=== PATIENT | female | born 1930 | race American Indian/Alaskan Native ===

== ENCOUNTER 2020-05-27 17:07 | Inpatient (IN) ==
[2020-05-27] MEDS ORDERED: IOPAMIDOL 100 ML BOTTLE IV ONE (17:08)
[2020-05-27] MEDS ORDERED: ONDANSETRON 4 MG/2 ML VIAL IV ONE (17:28)
--- NOTE | 2020-05-27 17:33 | Emergency Department Note ---
Nausea/Vomiting/Diarrhea HPI General Chief complaint: Nausea/Vomiting/Diarrhea Stated complaint: nausea, vomiting, diarrhea, weakness Time Seen by Provider: 05/27/20 17:21 Source: EMS Mode of arrival: EMS Limitations: no limitations and other (Patient seems hard of hearing and perhaps slow to respond to questions and does not respond completely.) History of Present Illness HPI Narrative: Narrative: This patient has developed nausea vomiting and diarrhea today. She is not a very good historian. She comes from a facility that has positive COVID cases. She denies cough or shortness of breath and denies any bleeding today. Apparently she is having watery diarrhea and nausea and vomiting. She denies abdominal pain. MD complaint: nausea, vomiting and diarrhea Onset (ago): hour(s) Description of Vomiting: watery Description of Diarrhea: water Associated Abdominal Pain: No Severity: moderate Improves with: none Worsens with: none Associated symptoms: Reports weakness; Denies myalgias, chest pain, cough, fever/chills, headaches and shortness of breath Related Data Home Medications Medication Instructions Recorded Confirmed gabapentin 100 mg PO HS 08/04/16 05/27/20 cyanocobalamin (vitamin B-12) 1,000 mcg PO QDAY 03/15/19 05/27/20 1,000 mcg tablet losartan 100 mg tablet 100 mg PO QDAY 03/15/19 05/27/20 metoprolol succinate 25 mg 25 mg PO QDAY 03/15/19 05/27/20 tablet,extended release 24 hr paroxetine HCl 10 mg PO DAILY 05/27/20 05/27/20 Previous Rx's Medication Instructions Recorded chlorthalidone 25 mg tablet 25 mg PO QDAY #60 tab 07/21/19 Allergies Allergy/AdvReac Type Severity Reaction Status Date / Time aspirin [From Bufferin] AdvReac Mild Gastrointestinal Verified 05/27/20 17:11 Upset [id number] [From Bufferin] AdvReac Mild Gastrointestinal Verified 05/27/20 17:11 Upset magnesium [From Bufferin] AdvReac Mild Gastrointestinal Verified 05/27/20 17:11 Upset Review of Systems ROS ROS Narrative: Narrative: All systems ED: reviewed and negative except as stated. [facility] Narrative Patient History Narrative: Narrative: Medical/Surgical/Family History All Active Problems Gastroenteritis (Acute) Hypertensive nephrosclerosis (Chronic) CKD stage G3a/A2, GFR 45-59 and albumin creatinine ratio 30-299 mg/g (Chronic) Encounter for removal of sutures (Chronic) Strain of tendon (Chronic) Diverticulitis (Chronic) Diverticular disease (Chronic) Acute urinary tract infection (Chronic) Supraventricular tachycardia (Chronic) Blood pressure alteration (Chronic) Heart murmur (Chronic) Chest pain (Chronic) Tenderness (Chronic) After cataract not obscuring vision (Chronic) Glaucoma suspect of both eyes (Chronic) Viral upper respiratory tract infection (Chronic) Bacteremia (Chronic) Presbyopia (Chronic) Left arm numbness (Chronic) Edema (Chronic) 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) Regular astigmatism of both eyes (Chronic) Hypermetropia, bilateral (Chronic) Knee pain, right (Chronic) Retinal scar of left eye (Chronic) Calf pain (Chronic) Acute bronchitis (Chronic) Vitamin B 12 deficiency (Chronic) Chronic back pain (Chronic) Generalized osteoarthritis of hand (Chronic) Osteoporosis (Chronic) Callus (Chronic) Osteopenia (Chronic) Muscle cramps (Chronic) Vitamin D deficiency (Chronic) Malignant neoplasm of female breast (Chronic) Bilateral hearing loss (Chronic) Chronic GERD (Chronic) RAD (reactive airway disease) (Chronic) Cervical spinal stenosis (Chronic) Cervical spinal stenosis (Chronic) Hyperlipidemia (Chronic) Hypertension (Chronic) Positive PPD (Chronic) Laneview's disease (Chronic) Left groin pain (Chronic) Swollen ankles (Acute) Hematuria (Chronic) History of partial knee replacement (Acute) Medical History (Updated 05/27/20 @ 23:36 by Bob Larson MD) Acute bronchitis (Chronic) Acute urinary tract infection (Chronic) Laneview's disease (Chronic) After cataract not obscuring vision (Chronic) Anemia (Chronic) Bacteremia (Chronic) Bilateral hearing loss (Chronic) 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) Blood pressure alteration (Chronic) Calf pain (Chronic) Callus (Chronic) Cervical spinal stenosis (Chronic) bilateral C5-6 Cervical spinal stenosis (Chronic) Left C4-5 Chest pain (Chronic) Chronic back pain (Chronic) Chronic GERD (Chronic) CKD stage G3a/A2, GFR 45-59 and albumin creatinine ratio 30-299 mg/g (Chronic) Probably hypertensive nephrosclerosis On full dose losartan therapy Diverticular disease (Chronic) Diverticulitis (Chronic) Edema (Chronic) Encounter for removal of sutures (Chronic) Generalized osteoarthritis of hand (Chronic) Glaucoma suspect of both eyes (Chronic) Heart murmur (Chronic) Hematuria (Chronic) Hyperlipidemia (Chronic) Hypermetropia, bilateral (Chronic) Hypertension (Chronic) Requiring 3-4 drugs for control Hypertensive nephrosclerosis (Chronic) Low-grade proteinuria is present on maximal dose ARB therapy Persistent edema Blood pressure goal is 130/80 in has yet to be achieved Knee pain, right (Chronic) Left arm numbness (Chronic) Left groin pain (Chronic) Malignant neoplasm of female breast (Chronic) Microalbuminuria (Suspected) This patient has had trace dipstick positive albuminuria which in the absence of diabetes of long duration is not much of a concern. 3 separate urine checks have failed to result in any readings of elevated protein losses i.e. random urine protein to creatinine ratio of greater than 0.2 Muscle cramps (Chronic) Osteopenia (Chronic) Osteoporosis (Chronic) Positive PPD (Chronic) Presbyopia (Chronic) RAD (reactive airway disease) (Chronic) Secondary to GERD Regular astigmatism of both eyes (Chronic) Retinal scar of left eye (Chronic) Strain of tendon (Chronic) Left medial thigh muscle Supraventricular tachycardia (Chronic) Swollen ankles (Acute) Suspect this is the result of amlodipine a well-known side effect Tenderness (Chronic) Viral upper respiratory tract infection (Chronic) Vitamin B 12 deficiency (Chronic) Vitamin D deficiency (Chronic) Surgical History H/O cataract removal with insertion of prosthetic lens (Chronic 01/20/99) H/O cataract removal with insertion of prosthetic lens (Chronic 01/06/99) H/O cataract removal with insertion of prosthetic lens (Chronic 01/15/99) H/O eye surgery (Chronic 01/06/99) Removal of lens material H/O eye surgery (Chronic 02/10/00) Removal of inner eye fluid H/O knee surgery (Chronic 08/07/16) Revision of knee joint H/O: hysterectomy (Chronic) due to fibroids History of cholecystectomy (Chronic) History of excision of lesion (Chronic) Pigmented lesion axilla x7 History of excision of lesion (Chronic) Skin tag History of partial knee replacement (Acute) Hx of tonsillectomy (Chronic) Family History Other No pertinent family history Social History Smoking Status: Former smoker Exam Narrative Narrative: Narrative: General Limitations: no limitations and other (Patient seems hard of hearing and perhaps slow to respond to questions and does not respond completely.) Head Head: atraumatic, normocephalic and normal inspection Eye Eye: Present normal appearance, PERRL and EOMI; Absent scleral icterus and conjunctival injection ENT ENT: Present normal exam, normal oropharynx and mucous membranes dry Neck Neck: Present normal inspection and full ROM Chest Chest: Present normal inspection and symmetric chest wall rise Respiratory Respiratory: Present normal lung sounds bilaterally; Absent respiratory distress, rales/crackles and wheezes Cardiovascular Cardiovascular: Present regular rate, normal rhythm and normal heart sounds Adbominal Abdominal: Present soft; Absent distention and tenderness Extremities Extremities: Absent pedal edema and pretibial edema Neurological Neurological: Present alert Psychiatric Psychiatric: Present normal affect Skin Skin: Present warm and dry; Absent diaphoresis Course Vital Signs Vital signs: Vital Signs Temperature 99.9 F H 05/27/20 17:08 Pulse Rate 60 05/27/20 17:08 Respiratory Rate 18 05/27/20 17:08 Blood Pressure 131/56 05/27/20 17:08 Pulse Oximetry (%) 98 05/27/20 17:08 Temperature 99.9 F H 05/27/20 17:08 Pulse Rate 60 05/27/20 17:08 Respiratory Rate 16 05/27/20 18:16 Blood Pressure 131/56 05/27/20 17:08 Pulse Oximetry (%) 98 05/27/20 17:[address] [facility] MDM Narrative Medical decision making narrative: Narrative: This patient was hydrated and felt much better. I think she probably was dehydrated with a T CO2 of 16 but she had a normal lactic acid. She had no diarrhea while here in the emergency room and had no nausea at discharge. She felt improved and felt that she could go home. Lab Data Lab results reviewed: Yes I reviewed the patient's lab results. Result diagrams: 05/27/20 18:22 05/27/20 18:21 Labs: Lab Results 05/27/20 05/27/20 05/27/20 Range/Units 18:21 18:22 18:22 WBC 5.6 (4.50-11.00) K/mcL RBC 3.67 (3.59-5.38) M/mcL Hgb 10.6 L (11.2-15.7) g/dL Hct 32.3 L (34.1-44.9) % MCV 88.0 (80.0-100.0) fL MCH 28.9 (26.0-34.0) pg MCHC 32.8 (31.0-36.0) g/dL RDW 12.5 (11.5-14.5) % Plt Count 106 L (140-440) K/mcL MPV 10.6 H (7.4-10.4) fL Gran % 50.7 (38.0-78.0) % Lymph % (Auto) 33.9 (15.5-49.0) % [place] % (Auto) 15.2 H (1.0-12.0) % Eos % (Auto) 0.2 (0.0-7.0) % Baso % (Auto) 0 (0.0-2.0) % Gran # 2.86 (1.80-8.00) K/mcL Lymph # (Auto) 1.91 (1.50-4.80) K/mcL [place] # (Auto) 0.86 (0.10-0.90) K/mcL Eos # (Auto) 0.01 (0.00-0.70) K/mcL Baso # (Auto) 0 (0.00-0.30) K/mcL VBG Lactic Acid 1.0 (0.5-2.0) mmol/L Sodium 137 (133-145) mmol/L Potassium 4.5 (3.3-5.1) mmol/L Chloride 109 H (96-108) mmol/L Carbon Dioxide 16 L (22-30) mmol/L Anion Gap 12.0 (8-16) BUN 41 H (8-23) mg/dl Creatinine 1.5 H (0.6-1.1) mg/dl GFR Calculation 31 Glucose 93 (70-105) mg/dL Calcium 8.0 L (8.6-10.4) mg/dl Total Bilirubin 0.6 (0.0-1.0) mg/dL AST 29 (0-37) U/l ALT 12 (0-40) U/l Alkaline Phosphatase 51 (39-117) U/L Total Protein 5.9 (5.9-8.4) gm/dL Albumin 3.0 L (3.2-5.2) gm/dL Globulin 2.9 (2.2-3.7) gm/dL Albumin/Globulin Ratio 1.0 (1.0-2.3) Radiology Data Radiology results reviewed: Yes I reviewed the patient's radiology results. Discharge Plan Patient/Caregiver Discharge Instructions Pt seen by [facility]/PA only: No Clinical Impression: Gastroenteritis Instructions: Gastroenteritis (ED) Activity Restrictions/Additional Instructions: Try to keep well-hydrated at home and use Imodium as needed for diarrhea Patient Disposition: Home, Self-Care Follow up with: Telma Smith ARNP [Primary Care Provider] - Prescriptions: No Action chlorthalidone 25 mg tablet 25 mg PO QDAY Qty: 60 RF: 2 losartan 100 mg tablet 100 mg PO QDAY RF: 0 metoprolol succinate 25 mg tablet extended release 24 hr 25 mg PO QDAY RF: 0 cyanocobalamin (vit B-12) 1,000 mcg tablet 1,000 mcg tablet 1,000 mcg PO QDAY RF: 0 gabapentin 100 MG capsule 100 mg PO HS RF: 0 paroxetine HCl 10 mg tablet 10 mg PO DAILY RF: 0
[2020-05-27 19:13] LABS: Basophils # (Auto) 0 K/mcL (0.00-0.30); Basophils % (Auto) 0 % (0.0-2.0); Eosinophils # (Auto) 0.01 K/mcL (0.00-0.70); Eosinophils % (Auto) 0.2 % (0.0-7.0); Granulocytes % (Auto) 50.7 % (38.0-78.0); Hematocrit 32.3 % (34.1-44.9); Hemoglobin 10.6 g/dL (11.2-15.7); Lymphocytes # (Auto) 1.91 K/mcL (1.50-4.80); Lymphocytes % (Auto) 33.9 % (15.5-49.0); Mean Corpuscular HGB Conc 32.8 g/dL (31.0-36.0); Mean Platelet Volume 10.6 fL (7.4-10.4); Monocytes # (Auto) 0.86 K/mcL (0.10-0.90); Monocytes % (Auto) 15.2 % (1.0-12.0); Platelet Count 106 K/mcL (140-440); RBC 3.67 M/mcL (3.59-5.38); Red Cell Distribution Width 12.5 % (11.5-14.5); WBC 5.6 K/mcL (4.50-11.00)
[2020-05-27 19:32] LABS: ALT/SGPT 12 U/l (0-40); AST/SGOT 29 U/l (0-37); Alkaline Phosphatase 51 U/L (39-117); Bilirubin,Total 0.6 mg/dL (0.0-1.0); Blood Urea Nitrogen 41 mg/dl (8-23); Carbon Dioxide 16 mmol/L (22-30); Chloride 109 mmol/L (96-108); Globulin 2.9 gm/dL (2.2-3.7); Glomerular Filtration Rate 31; Glucose 93 mg/dL (70-105)
--- NOTE | 2020-05-27 20:27 | XRay Report ---
INDICATION: cough TECHNIQUE: AP portable upright chest x-ray COMPARISON: None FINDINGS: Lungs:Lungs are negative. No focal pulmonary parenchymal infiltrate or mass Heart, vascular:No significant cardiomegaly. Pulmonary vascularity is normal. No pulmonary edema or pulmonary congestion Mediastinum, diane:No mediastinal widening. No hilar mass Pleura:No pleural fluid. No pleural-based mass or calcification Skeletal, soft tissues:Surgical clips in the right axilla IMPRESSION: Negative AP chest x-ray Interpreted and Authenticated by: Akin Merino 05/27/20
[2020-05-27 21:12] LABS: Appearance,Urine CLEAR; Bacteria,Urine 0 /hpf (0); Bilirubin,Urine NEG (NEG); Color,Urine YELLOW; Culture Indicated,Urine NO; Glucose,Urine (UA) NEGATIVE (NEG); Ketones,Urine 5/TR mg/dL (NEG); Leukocyte Esterase,Urine NEG /uL (NEG); Mucus,Urine FEW /hpf (0); Nitrate,Urine NEG (NEG); Protein,Urine 30 mg/dL (NEG); Specific Gravity,Urine 1.014 (1.000-1.035); Urine Blood NEG mg/dL (<0.03); Urine Hyaline Cast 4 /lpf (0-2); Urine RBC 2 /hpf (0-1); Urine Squamous Epithelial Cell 1 /hpf (0-4); Urine WBC 1 /hpf (0-4); Urobilinogen,Urine NEG (NEG)
[2020-05-27] MEDS ORDERED: ONDANSETRON (PP) 4 MG TABLET SL ONE (23:36)
[2020-05-28] MEDS ORDERED: ACETAMINOPHEN 325 MG TABLET PO ONE (06:02)
[2020-05-28 09:34] LABS: ALT/SGPT 13 U/l (0-40); AST/SGOT 34 U/l (0-37); Alkaline Phosphatase 54 U/L (39-117); Bilirubin,Total 0.7 mg/dL (0.0-1.0); Blood Urea Nitrogen 33 mg/dl (8-23); Calcium 8.1 mg/dl (8.6-10.4); Carbon Dioxide 15 mmol/L (22-30); Chloride 107 mmol/L (96-108); Glomerular Filtration Rate 31; Glucose 85 mg/dL (70-105)
[2020-05-28 10:15] LABS: Basophils # (Auto) 0.01 K/mcL (0.00-0.30); Basophils % (Auto) 0.2 % (0.0-2.0); Eosinophils # (Auto) 0.01 K/mcL (0.00-0.70); Eosinophils % (Auto) 0.2 % (0.0-7.0); Granulocytes % (Auto) 66.4 % (38.0-78.0); Hematocrit 35.4 % (34.1-44.9); Hemoglobin 11.6 g/dL (11.2-15.7); Lymphocytes # (Auto) 1.45 K/mcL (1.50-4.80); Lymphocytes % (Auto) 22.1 % (15.5-49.0); Mean Cell Volume 87.6 fL (80.0-100.0); Mean Corpuscular HGB Conc 32.8 g/dL (31.0-36.0); Mean Platelet Volume 10.7 fL (7.4-10.4); Monocytes # (Auto) 0.73 K/mcL (0.10-0.90); Monocytes % (Auto) 11.1 % (1.0-12.0); Platelet Count 144 K/mcL (140-440); RBC 4.04 M/mcL (3.59-5.38); Red Cell Distribution Width 12.4 % (11.5-14.5); WBC 6.6 K/mcL (4.50-11.00)
[2020-05-28] MEDS ORDERED: 0.9 % SODIUM CHLORIDE 1,000 ML IV ONE ×2 (10:43→14:16)
--- NOTE | 2020-05-28 10:55 | Cat Scan Report ---
INDICATION: obtundation, weakness COMPARISON: None. TECHNIQUE: Axial noncontrast-enhanced images through the brain. Sagittally and coronally reformatted images. FINDINGS: Cerebral hemispheres:Negative. No intra-axial abnormality. No intra-axial hematoma. No localized mass effect. Brain volume is within normal limits. No hydrocephalus. There is mild white matter abnormality in a periventricular distribution. Appearance is consistent with small vessel ischemic change in this 89-year-old patient Brainstem and cerebellum:No intra-axial abnormality Extra-axial:No acute hemorrhage. No subdural or epidural hematoma. No subarachnoid hemorrhage. Basilar cisterns are normal Calvarial:No calvarial fracture. No lytic lesion Temporal bones are negative. No destructive lesions Soft tissue, orbits, sinuses:Findings consistent with chronic fracture of the right lamina papyracea and medial orbital wall. There is inflammatory disease with mucosal thickening in the ethmoid sinuses and frontal sinuses bilaterally. Maxillary sinuses are not imaged IMPRESSION: 1. No acute intracranial abnormality 2. Chronic deformity of the medial right orbital wall consistent with old medial blowout fracture. Inflammatory disease of the ethmoid and frontal sinuses The exam was performed using radiation dose optimization techniques including, but not limited to, automated exposure control, adjustment of the mA and/or kV according to patient size and use of iterative reconstruction technique. Interpreted and Authenticated by: Akin Merino 05/28/20
--- NOTE | 2020-05-28 12:03 | Emergency Department Note ---
HPI General Chief complaint: Nausea/Vomiting/Diarrhea Stated complaint: nausea, vomiting, diarrhea, weakness Time Seen by Provider: 05/27/20 17:21 Source: EMS Mode of arrival: EMS Limitations: no limitations and other (Patient seems hard of hearing and perhaps slow to respond to questions and does not respond completely.) History of Present Illness HPI Narrative: Narrative: See dictated history and physical by Dr. lowe. Patient's baseline is uncertain. She seems to be somewhat lethargic, obtunded. Reportedly could not return to her usual environment/home because this emergency room department did not have contact information for family or residents last evening. She slept well during the night reportedly and then had some additional labs drawn to recheck this morning. Was brought in yesterday because of weakness, nausea and vomiting, diarrhea, incontinence. Reportedly is coming from a [facility] facility. Staff nor myself know what this patient's baseline is. She seems to be still somewhat weak. She may be more hard of hearing. Related Data Home Medications Medication Instructions Recorded Confirmed gabapentin 100 mg PO HS 08/04/16 05/27/20 cyanocobalamin (vitamin B-12) 1,000 mcg PO QDAY 03/15/19 05/27/20 1,000 mcg tablet losartan 100 mg tablet 100 mg PO QDAY 03/15/19 05/27/20 metoprolol succinate 25 mg 25 mg PO QDAY 03/15/19 05/27/20 tablet,extended release 24 hr paroxetine HCl 10 mg PO DAILY 05/27/20 05/27/20 Previous Rx's Medication Instructions Recorded chlorthalidone 25 mg tablet 25 mg PO QDAY #60 tab 07/21/19 Allergies Allergy/AdvReac Type Severity Reaction Status Date / Time aspirin [From Bufferin] AdvReac Mild Gastrointestinal Verified 05/27/20 17:11 Upset [id number] [From Bufferin] AdvReac Mild Gastrointestinal Verified 05/27/20 17:11 Upset magnesium [From Bufferin] AdvReac Mild Gastrointestinal Verified 05/27/20 17:11 Upset Review of Systems ROS ROS Narrative: Narrative: PFSH Narrative Patient History Narrative: Narrative: Medical/Surgical/Family History All Active Problems Pneumonia (Acute) Acute renal failure (ARF) (Acute) Acute dehydration (Acute) Change in mental status (Acute) Hypertensive nephrosclerosis (Chronic) CKD stage G3a/A2, GFR 45-59 and albumin creatinine ratio 30-299 mg/g (Chronic) Encounter for removal of sutures (Chronic) Strain of tendon (Chronic) Diverticulitis (Chronic) Diverticular disease (Chronic) Acute urinary tract infection (Chronic) Supraventricular tachycardia (Chronic) Blood pressure alteration (Chronic) Heart murmur (Chronic) Chest pain (Chronic) Tenderness (Chronic) After cataract not obscuring vision (Chronic) Glaucoma suspect of both eyes (Chronic) Viral upper respiratory tract infection (Chronic) Bacteremia (Chronic) Presbyopia (Chronic) Left arm numbness (Chronic) Edema (Chronic) 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) Regular astigmatism of both eyes (Chronic) Hypermetropia, bilateral (Chronic) Knee pain, right (Chronic) Retinal scar of left eye (Chronic) Calf pain (Chronic) Acute bronchitis (Chronic) Vitamin B 12 deficiency (Chronic) Chronic back pain (Chronic) Generalized osteoarthritis of hand (Chronic) Osteoporosis (Chronic) Callus (Chronic) Osteopenia (Chronic) Muscle cramps (Chronic) Vitamin D deficiency (Chronic) Malignant neoplasm of female breast (Chronic) Bilateral hearing loss (Chronic) Chronic GERD (Chronic) RAD (reactive airway disease) (Chronic) Cervical spinal stenosis (Chronic) Cervical spinal stenosis (Chronic) Hyperlipidemia (Chronic) Hypertension (Chronic) Positive PPD (Chronic) Wheeler's disease (Chronic) Left groin pain (Chronic) Swollen ankles (Acute) Hematuria (Chronic) History of partial knee replacement (Acute) Medical History (Updated 05/28/20 @ 18:26 by Antoni Mensah DO) Acute bronchitis (Chronic) Acute urinary tract infection (Chronic) Frandy's disease (Chronic) After cataract not obscuring vision (Chronic) Anemia (Chronic) Bacteremia (Chronic) Bilateral hearing loss (Chronic) 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) Blood pressure alteration (Chronic) Calf pain (Chronic) Callus (Chronic) Cervical spinal stenosis (Chronic) bilateral C5-6 Cervical spinal stenosis (Chronic) Left C4-5 Chest pain (Chronic) Chronic back pain (Chronic) Chronic GERD (Chronic) CKD stage G3a/A2, GFR 45-59 and albumin creatinine ratio 30-299 mg/g (Chronic) Probably hypertensive nephrosclerosis On full dose losartan therapy Diverticular disease (Chronic) Diverticulitis (Chronic) Edema (Chronic) Encounter for removal of sutures (Chronic) Generalized osteoarthritis of hand (Chronic) Glaucoma suspect of both eyes (Chronic) Heart murmur (Chronic) Hematuria (Chronic) Hyperlipidemia (Chronic) Hypermetropia, bilateral (Chronic) Hypertension (Chronic) Requiring 3-4 drugs for control Hypertensive nephrosclerosis (Chronic) Low-grade proteinuria is present on maximal dose ARB therapy Persistent edema Blood pressure goal is 130/80 in has yet to be achieved Knee pain, right (Chronic) Left arm numbness (Chronic) Left groin pain (Chronic) Malignant neoplasm of female breast (Chronic) Microalbuminuria (Suspected) This patient has had trace dipstick positive albuminuria which in the absence of diabetes of long duration is not much of a concern. 3 separate urine checks have failed to result in any readings of elevated protein losses i.e. random urine protein to creatinine ratio of greater than 0.2 Muscle cramps (Chronic) Osteopenia (Chronic) Osteoporosis (Chronic) Positive PPD (Chronic) Presbyopia (Chronic) RAD (reactive airway disease) (Chronic) Secondary to GERD Regular astigmatism of both eyes (Chronic) Retinal scar of left eye (Chronic) Strain of tendon (Chronic) Left medial thigh muscle Supraventricular tachycardia (Chronic) Swollen ankles (Acute) Suspect this is the result of amlodipine a well-known side effect Tenderness (Chronic) Viral upper respiratory tract infection (Chronic) Vitamin B 12 deficiency (Chronic) Vitamin D deficiency (Chronic) Surgical History H/O cataract removal with insertion of prosthetic lens (Chronic 01/20/99) H/O cataract removal with insertion of prosthetic lens (Chronic 01/06/99) H/O cataract removal with insertion of prosthetic lens (Chronic 01/15/99) H/O eye surgery (Chronic 01/06/99) Removal of lens material H/O eye surgery (Chronic 02/10/00) Removal of inner eye fluid H/O knee surgery (Chronic 08/07/16) Revision of knee joint H/O: hysterectomy (Chronic) due to fibroids History of cholecystectomy (Chronic) History of excision of lesion (Chronic) Pigmented lesion axilla x7 History of excision of lesion (Chronic) Skin tag History of partial knee replacement (Acute) Hx of tonsillectomy (Chronic) Family History No pertinent family history Social History Smoking Status: Former smoker Exam Narrative Narrative: Narrative: General: Nontoxic but not very responsive. May be quite hard of hearing because of repeating and louder she seems to respond a bit better. She does obey some commands. Eyes: Extraocular muscles intact. Pupils are symmetric and minimally reactive. Appears to have an intraocular lens on the left. Oropharynx: Tongue and uvula in midline. General mucosal sticky white adherent moderate amount of mucus as if quite dry. Neck: No lymphadenopathy or thyromegaly Lungs: Clear to auscultation. CV: Regular with a 2/6 systolic murmur loudest at the left upper sternal border. Extremities: No edema or cyanosis or calf pain. She moves all extremities symmetrically. Neuro: Rib strength and elbow flexion and extension seems to be symmetric with some generalized weakness, rated 2-3/5 bilateral. Plantarflexion and dorsiflexion is symmetric rated 3/5. Hip flexion is symmetric at about 2/5 bilateral. No facial asymmetry. Further neurologic exam not possible due to patient's inability to either here or to follow instructions. General Limitations: no limitations and other (Patient seems hard of hearing and perhaps slow to respond to questions and does not respond completely.) Course Vital Signs Vital signs: Vital Signs Temperature 99.9 F H 05/27/20 17:08 Pulse Rate 60 05/27/20 17:08 Respiratory Rate 18 05/27/20 17:08 Blood Pressure 131/56 05/27/20 17:08 Pulse Oximetry (%) 98 05/27/20 17:08 Temperature 98.4 F 05/28/20 12:19 Pulse Rate 90 05/28/20 18:01 Respiratory Rate 18 05/28/20 18:01 Blood Pressure 170/114 05/28/20 18:01 Pulse Oximetry (%) 96 05/28/20 18:01 [facility] MDM Narrative Medical decision making narrative: 10:10 AM - labs fairly unremarkable but elevated creatinine of 1.5. Some generalized weakness and seems rather obtunded or hard of hearing. With examination being or appearing to be different than her baseline, will go ahead with CT scan of the head. Repeat CBC is pending. Her creatinine is again 1.5 this morning. Oropharynx was rather dry. Additional liter of fluid ordered. 10:20 AM - I spoke with Dr. Jimenez, [facility], who remembers seeing and hearing this patient. She is normally interactive and without speech delay. She recently discontinued her potassium because it was 5.8. Creatinine at that time was 1.5. This was before the weekend so approximately 4 or 5 days ago. She is normally ambulatory. Her living situation is the [facility] where she lives in the in her own apartment. Dr. Bello is unaware of COVID being present at that facility specifically but there is a large number of new cases showing up in the community with nearly 10 new positives per day and 66 in the last several weeks. 12:04 PM - CBC has now come back and is unremarkable. 1:34 PM - patient's third liter of fluid is now infused. I was able to reach Desire Mccollum, caregiver, who reports that patient usually is hard of hearing but usually can understand and is fairly interactive even "spunky" and is mobile usually using a cane. But she was not herself. The caregiver visited her yesterday after the called stating that she was crying all weekend. She was unable to sit up, her right leg was shaking a lot. Patient used to be quite active and has gone downhill in the last 1 year. Desire is unaware of any nausea or vomiting. She was reportedly incontinent of urine yesterday per the significant other. On recent exam with patient just a few minutes ago, she still seem to stare at me quite a bit as if she did not understand. Her speech at times was slurred and even somewhat unclear. Uncertain if there were even intelligent syllables coming out. Patient denies pain. She feels a bit better. She denies pain. Plan is to do a POC Chem-8 and if her creatinine has come down sufficiently then CT Soraya of the head and neck. If not then to seek MRI. Has been monitored now in this emergency room for 20-1/2 hours. No ectopy or cardiac dysrhythmia has been noted. Vital signs have been quite stable. She has actually improved in alertness and interaction I focusing on the person speaking to her but still seems to have a significant deficit from her normal or baseline. 2:05 PM - I spoke with radiologist, Dr. Akin Merino, regarding CT Angio of the head neck ENT agrees that it likely can be done with her creatinine at 1.4 but they will calculate to make sure her GFR is over 30. 3:05 PM - CT of the head neck has been done but reading is still pending. Of note is that previously I discussed with nursing staff and there had been some sort of a misunderstanding regarding the total amount of fluids that she has received. Apparently she only received 1 L last evening by EMS and then was changed here and an additional liter was hung not until around noon which finished around 1. I had understood that this was the second liter today rather than second liter total. A second liter today has been already ordered and is flowing. Radiology indicated that her GFR calculated at 31. She will get extra fluid now with this second liter today. 5:16 PM - I tried to discuss with patient whether she would want to be resuscitated or not if she had an acute stoppage of her heart or heart attack or stroke. She is very difficult to talk to and begins to weep. I cannot clearly understand her but I believe she indicated "I suppose". I tried to call her significant other, Tee, [phone]. There was no answer. 5:25 PM - CT scan results previously: 1. Mild calcified plaque without stenosis or ulceration. Otherwise negative CTA of the neck and [place] of Mott 2. Inflammatory disease of paranasal sinuses 3. Patchy infiltrates in the left upper lobe consistent with pneumonia Antibiotics ordered for this individual including Rocephin and azithromycin. I am trying to reach family to discuss her care. Patient is not able to answer regarding her CODE STATUS. 6:08 PM - spoke again with patient's caregiver, Desire orosco, . She is unaware of any living will, directive to physicians, etc. She will try to contact the RNGary or the maintenance supervisor electrical to see if there is any additional information. 6:20 PM - I spoke with Tee Soni, the significant other who called back. He does not know of any family members except may be a niece who lives in [place], and whose name is Simba, and is in her cell phone. He knows of no previous discussions regarding CODE STATUS. 6:27 PM - I spoke with hospitalist, Dr. Panda Chew, that this patient for inpatient care. Patient's COVID-19 status is still pending. Lab Data Result diagrams: 05/28/20 09:33 05/28/20 08:24 Labs: Lab Results 05/27/20 05/27/20 05/27/20 Range/Units 18:21 18:21 18:22 WBC 5.6 (4.50-11.00) K/mcL RBC 3.67 (3.59-5.38) M/mcL Hgb 10.6 L (11.2-15.7) g/dL Hct 32.3 L (34.1-44.9) % POC Hct (36.0-48.0) % MCV 88.0 (80.0-100.0) fL MCH 28.9 (26.0-34.0) pg MCHC 32.8 (31.0-36.0) g/dL RDW 12.5 (11.5-14.5) % Plt Count 106 L (140-440) K/mcL MPV 10.6 H (7.4-10.4) fL Gran % 50.7 (38.0-78.0) % Lymph % (Auto) 33.9 (15.5-49.0) % Alger % (Auto) 15.2 H (1.0-12.0) % Eos % (Auto) 0.2 (0.0-7.0) % Baso % (Auto) 0 (0.0-2.0) % Gran # 2.86 (1.80-8.00) K/mcL Lymph # (Auto) 1.91 (1.50-4.80) K/mcL Alger # (Auto) 0.86 (0.10-0.90) K/mcL Eos # (Auto) 0.01 (0.00-0.70) K/mcL Baso # (Auto) 0 (0.00-0.30) K/mcL VBG Lactic Acid (0.5-2.0) mmol/L POC Sodium (133-145) mmol/L Sodium 137 (133-145) mmol/L POC Potassium (3.3-5.1) mmol/L Potassium 4.5 (3.3-5.1) mmol/L POC Chloride (96-108) mmol/L Chloride 109 H (96-108) mmol/L Carbon Dioxide 16 L (22-30) mmol/L POC Total CO2 (22-30) mmol/L Anion Gap 12.0 (8-16) POC BUN (8-23) mg/dl BUN 41 H (8-23) mg/dl Creatinine 1.5 H (0.6-1.1) mg/dl POC Creatinine (0.6-1.1) mg/dl GFR Calculation 31 Glucose 93 (70-105) mg/dL POC Glucose (70-105) mg/dL Calcium 8.0 L (8.6-10.4) mg/dl POC WB Ioniz Calcium (1.16-1.32) mmol/L Total Bilirubin 0.6 (0.0-1.0) mg/dL AST 29 (0-37) U/l ALT 12 (0-40) U/l Alkaline Phosphatase 51 (39-117) U/L Troponin T < 0.01 (0-0.03) ng/ml Total Protein 5.9 (5.9-8.4) gm/dL Albumin 3.0 L (3.2-5.2) gm/dL Globulin 2.9 (2.2-3.7) gm/dL Albumin/Globulin Ratio 1.0 (1.0-2.3) Urine Color Urine Appearance Urine pH (5.0-9.0) Ur Specific Goodman (1.000-1.035) Urine Protein (NEG) mg/dL Urine Glucose (UA) (NEG) mg/dL Urine Ketones (NEG) mg/dL Urine Occult Blood (<0.03) mg/dL Urine Nitrate (NEG) Urine Bilirubin (NEG) mg/dL Urine Urobilinogen (NEG) mg/dL Ur Leukocyte Esterase (NEG) /uL Urine RBC (0-1) /hpf Urine WBC (0-4) /hpf Ur Squamous Epith Cells (0-4) /hpf Urine Bacteria (0) /hpf Hyaline Casts (0-2) /lpf Urine Mucus (0) /hpf Ur Culture Indicated? 05/27/20 05/27/20 05/28/20 Range/Units 18:22 20:28 08:24 WBC TNP (4.50-11.00) K/mcL RBC TNP (3.59-5.38) M/mcL Hgb TNP (11.2-15.7) g/dL Hct TNP (34.1-44.9) % POC Hct (36.0-48.0) % MCV TNP (80.0-100.0) fL MCH TNP (26.0-34.0) pg MCHC TNP (31.0-36.0) g/dL RDW TNP (11.5-14.5) % Plt Count TNP (140-440) K/mcL MPV TNP (7.4-10.4) fL Gran % (38.0-78.0) % Lymph % (Auto) (15.5-49.0) % Alger % (Auto) (1.0-12.0) % Eos % (Auto) (0.0-7.0) % Baso % (Auto) (0.0-2.0) % Gran # (1.80-8.00) K/mcL Lymph # (Auto) (1.50-4.80) K/mcL Alger # (Auto) (0.10-0.90) K/mcL Eos # (Auto) (0.00-0.70) K/mcL Baso # (Auto) (0.00-0.30) K/mcL VBG Lactic Acid 1.0 (0.5-2.0) mmol/L POC Sodium (133-145) mmol/L Sodium (133-145) mmol/L POC Potassium (3.3-5.1) mmol/L Potassium (3.3-5.1) mmol/L POC Chloride (96-108) mmol/L Chloride (96-108) mmol/L Carbon Dioxide (22-30) mmol/L POC Total CO2 (22-30) mmol/L Anion Gap (8-16) POC BUN (8-23) mg/dl BUN (8-23) mg/dl Creatinine (0.6-1.1) mg/dl POC Creatinine (0.6-1.1) mg/dl GFR Calculation Glucose (70-105) mg/dL POC Glucose (70-105) mg/dL Calcium (8.6-10.4) mg/dl POC WB Ioniz Calcium (1.16-1.32) mmol/L Total Bilirubin (0.0-1.0) mg/dL AST (0-37) U/l ALT (0-40) U/l Alkaline Phosphatase (39-117) U/L Troponin T (0-0.03) ng/ml Total Protein (5.9-8.4) gm/dL Albumin (3.2-5.2) gm/dL Globulin (2.2-3.7) gm/dL Albumin/Globulin Ratio (1.0-2.3) Urine Color Yellow Urine Appearance Clear Urine pH 5.0 (5.0-9.0) Ur Specific Goodman 1.014 (1.000-1.035) Urine Protein 30 A (NEG) mg/dL Urine Glucose (UA) Negative (NEG) mg/dL Urine Ketones 5/tr A (NEG) mg/dL Urine Occult Blood Neg (<0.03) mg/dL Urine Nitrate Neg (NEG) Urine Bilirubin Neg (NEG) mg/dL Urine Urobilinogen Neg (NEG) mg/dL Ur Leukocyte Esterase Neg (NEG) /uL Urine RBC 2 H (0-1) /hpf Urine WBC 1 (0-4) /hpf Ur Squamous Epith Cells 1 (0-4) /hpf Urine Bacteria 0 (0) /hpf Hyaline Casts 4 H (0-2) /lpf Urine Mucus Few (0) /hpf Ur Culture Indicated? No 05/28/20 05/28/20 05/28/20 Range/Units 08:24 09:33 13:49 WBC 6.6 (4.50-11.00) K/mcL RBC 4.04 (3.59-5.38) M/mcL Hgb 11.6 (11.2-15.7) g/dL Hct 35.4 (34.1-44.9) % POC Hct 30.0 L (36.0-48.0) % MCV 87.6 (80.0-100.0) fL MCH 28.7 (26.0-34.0) pg MCHC 32.8 (31.0-36.0) g/dL RDW 12.4 (11.5-14.5) % Plt Count 144 (140-440) K/mcL MPV 10.7 H (7.4-10.4) fL Gran % 66.4 (38.0-78.0) % Lymph % (Auto) 22.1 (15.5-49.0) % Alger % (Auto) 11.1 (1.0-12.0) % Eos % (Auto) 0.2 (0.0-7.0) % Baso % (Auto) 0.2 (0.0-2.0) % Gran # 4.37 (1.80-8.00) K/mcL Lymph # (Auto) 1.45 L (1.50-4.80) K/mcL Alger # (Auto) 0.73 (0.10-0.90) K/mcL Eos # (Auto) 0.01 (0.00-0.70) K/mcL Baso # (Auto) 0.01 (0.00-0.30) K/mcL VBG Lactic Acid (0.5-2.0) mmol/L POC Sodium 141 (133-145) mmol/L Sodium 137 (133-145) mmol/L POC Potassium 4.4 (3.3-5.1) mmol/L Potassium 4.6 (3.3-5.1) mmol/L POC Chloride 112 H (96-108) mmol/L Chloride 107 (96-108) mmol/L Carbon Dioxide 15 L (22-30) mmol/L POC Total CO2 16 L (22-30) mmol/L Anion Gap 15.0 (8-16) POC BUN 30 H (8-23) mg/dl BUN 33 H (8-23) mg/dl Creatinine 1.5 H (0.6-1.1) mg/dl POC Creatinine 1.4 H (0.6-1.1) mg/dl GFR Calculation 31 Glucose 85 (70-105) mg/dL POC Glucose 80 (70-105) mg/dL Calcium 8.1 L (8.6-10.4) mg/dl POC WB Ioniz Calcium 1.10 L (1.16-1.32) mmol/L Total Bilirubin 0.7 (0.0-1.0) mg/dL AST 34 (0-37) U/l ALT 13 (0-40) U/l Alkaline Phosphatase 54 (39-117) U/L Troponin T (0-0.03) ng/ml Total Protein 6.0 (5.9-8.4) gm/dL Albumin 3.0 L (3.2-5.2) gm/dL Globulin 3.0 (2.2-3.7) gm/dL Albumin/Globulin Ratio 1.0 (1.0-2.3) Urine Color Urine Appearance Urine pH (5.0-9.0) Ur Specific Goodman (1.000-1.035) Urine Protein (NEG) mg/dL Urine Glucose (UA) (NEG) mg/dL Urine Ketones (NEG) mg/dL Urine Occult Blood (<0.03) mg/dL Urine Nitrate (NEG) Urine Bilirubin (NEG) mg/dL Urine Urobilinogen (NEG) mg/dL Ur Leukocyte Esterase (NEG) /uL Urine RBC (0-1) /hpf Urine WBC (0-4) /hpf Ur Squamous Epith Cells (0-4) /hpf Urine Bacteria (0) /hpf Hyaline Casts (0-2) /lpf Urine Mucus (0) /hpf Ur Culture Indicated? Discharge Plan Patient/Caregiver Discharge Instructions Pt seen by [employer] TECHNICIAN/PA only: No Clinical Impression: Acute dehydration Pneumonia Qualifiers: Pneumonia type: due to unspecified organism Laterality: left Lung location: upper lobe of lung Qualified Code(s): J18.9 - Pneumonia, unspecified organism Acute renal failure (ARF) Qualifiers: Acute renal failure type: unspecified Qualified Code(s): N17.9 - Acute kidney failure, unspecified Change in mental status Qualifiers: Altered mental status type: unspecified Qualified Code(s): R41.82 - Altered mental status, unspecified Patient Disposition: Xfer As Inpt ([facility]) Follow up with: Telma Smith ARNP [Referring] - Prescriptions: No Action chlorthalidone 25 mg tablet 25 mg PO QDAY Qty: 60 RF: 2 losartan 100 mg tablet 100 mg PO QDAY RF: 0 metoprolol succinate 25 mg tablet extended release 24 hr 25 mg PO QDAY RF: 0 cyanocobalamin (vit B-12) 1,000 mcg tablet 1,000 mcg tablet 1,000 mcg PO QDAY RF: 0 gabapentin 100 MG capsule 100 mg PO HS RF: 0 paroxetine HCl 10 mg tablet 10 mg PO DAILY RF: 0
[2020-05-28 14:01] LABS: POC Blood Urea Nitrogen 30 mg/dl (8-23); POC CO2 16 mmol/L (22-30); POC Chloride 112 mmol/L (96-108); POC Creatinine 1.4 mg/dl (0.6-1.1); POC Glucose, Random 80 mg/dL (70-105); POC Potassium 4.4 mmol/L (3.3-5.1); POC Sodium 141 mmol/L (133-145)
--- NOTE | 2020-05-28 15:24 | Cat Scan Report ---
INDICATION: weakness, slurred speech COMPARISON: None. TECHNIQUE: Axial images were obtained through the upper chest, neck, and head during arterial phase. MIP and CPR reformatted images. 80ml Isovue 370 injected intravenously. FINDINGS: AORTIC ARCH:Calcified atherosclerotic plaque. Origins of the left subclavian artery, left vertebral artery, left common carotid artery, innominate artery, right common carotid artery, right subclavian artery, right vertebral artery are negative. No origin stenosis. CAROTID ARTERIES:Right: Right common carotid artery is negative. No stenosis or occlusion. Mild calcified plaque at the origin of the right internal carotid artery. No significant stenosis or evidence for ulceration. Right internal carotid artery is otherwise negative. No stenosis or occlusion. No fibromuscular dysplasia or dissection. Right common carotid artery and right internal carotid artery are tortuous. Left: Left common carotid artery is negative. No stenosis or occlusion. Mild calcified plaque at the origin of left internal carotid artery. No significant stenosis. No evidence for ulceration. Left internal carotid artery is otherwise negative. There is no stenosis or occlusion. No dissection or evidence for fibromuscular dysplasia VERTEBRAL ARTERIES:Vertebral arteries are patent without stenosis or occlusion [place] OF MOTT:[Cavernous and supraclinoid internal carotid arteries are negative. No significant stenosis or occlusion. M1 segments of the middle cerebral arteries and A1 segments of the anterior cerebral arteries are negative. Intracranial vertebral arteries and basilar artery are negative. Posterior cerebral arteries and superior cerebellar arteries are negative] INTRACRANIAL CIRCULATION:No intracranial branch occlusion. No arteriovenous malformation or aneurysm No dural sinus occlusion UPPER CHEST:There are patchy infiltrates in the left upper lobe. Appearance is consistent with pneumonia. NECK:No solid or cystic soft tissue mass. No pathologic lymphadenopathy. FACIAL SOFT TISSUES AND PARANASAL SINUSES: There is mucosal thickening within both maxillary sinuses. There are air fluid levels. Appearance is consistent with acute sinusitis. There is inflammatory mucosal thickening within the ethmoid sinuses bilaterally. BRAIN:No acute intracranial hemorrhage. No focal attenuation abnormalities or pathologic contrast enhancement. IMPRESSION: 1. Mild calcified plaque without stenosis or ulceration. Otherwise negative CTA of the neck and false pass of Mott 2. Inflammatory disease of paranasal sinuses 3. Patchy infiltrates in the left upper lobe consistent with pneumonia The exam was performed using radiation dose optimization techniques including, but not limited to, automated exposure control, adjustment of the mA and/or kV according to patient size and use of iterative reconstruction technique. Interpreted and Authenticated by: Akin Merino 05/28/20
[2020-05-28] MEDS ORDERED: AZITHROMYCIN 500 MG in DEXTROSE 5% IN WATER 250 ML IV ONE (17:25)
[2020-05-28] MEDS ORDERED: cefTRIAXone 1 GM VIAL IV ONE (17:25)
--- NOTE | 2020-05-28 19:01 | Internal Med History&Physical ---
HPI History of Present Illness Patient information: Note initiated : 05/28/20 at 7:01 pm Service Date, if different from initiated Date: [] Patient: Amna Lawrence a 89 y/o F admitted on for nausea, vomiting, diarrhea, weakness. Chief Complaint: Presented with nausea, vomiting, diarrhea, decreased in teractivity. Admitted after found to have pneumonia today. History of present illness: Ms. Lawrence is a 89 year old F with a history of chronic kidney disease, hypertension, hypercholesterolemia, osteoporosis who presented to the emergency department yesterday with nausea, vomiting, diarrhea and weakness. She was noted to have weakness, been crying, was not able to get around. She was evaluated, received fluids, symptoms were controlled and attempts were made for her to return home. However there were no contact numbers available for family or friends for the patient to return to her apartment (where she lives with her significant other). She stayed in the emergency department overnight. This morning, she seemed to have decreased interactivity. A caregiver was contacted who states that she is quite vibrant at baseline and generally independent. There was concern that this could represent stroke, she underwent stroke protocol, had CT angios of the head and neck. No evidence of stroke or significant blockages were found. However cuts through the left upper lung field revealed evidence of patchy infiltrates consistent with pneumonia. Full details of emergency department course are contained in Dr. Mensah's note. The patient is unable to provide any history. She is alert, mumbling answers at times which I cannot understand, appears to be a little distraught and crying. Cannot point out to any place where she is hurting or express what might be causing her discomfort. She does not appear to be struggling to breathe, there is no accessory muscle use and she is maintaining saturations. Given the patient's pneumonia, alteration in mental status, she is being admitted for treatment with IV antibiotics. Her pneumonia severity index is 109, and her curb65 score is 3. Review of Systems ROS unobtainable: due to mental status PFSH PFSH All Active Problems Pneumonia (Acute) Acute renal failure (ARF) (Acute) Acute dehydration (Acute) Change in mental status (Acute) Hypertensive nephrosclerosis (Chronic) CKD stage G3a/A2, GFR 45-59 and albumin creatinine ratio 30-299 mg/g (Chronic) Encounter for removal of sutures (Chronic) Strain of tendon (Chronic) Diverticulitis (Chronic) Diverticular disease (Chronic) Acute urinary tract infection (Chronic) Supraventricular tachycardia (Chronic) Blood pressure alteration (Chronic) Heart murmur (Chronic) Chest pain (Chronic) Tenderness (Chronic) After cataract not obscuring vision (Chronic) Glaucoma suspect of both eyes (Chronic) Viral upper respiratory tract infection (Chronic) Bacteremia (Chronic) Presbyopia (Chronic) Left arm numbness (Chronic) Edema (Chronic) 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) Regular astigmatism of both eyes (Chronic) Hypermetropia, bilateral (Chronic) Knee pain, right (Chronic) Retinal scar of left eye (Chronic) Calf pain (Chronic) Acute bronchitis (Chronic) Vitamin B 12 deficiency (Chronic) Chronic back pain (Chronic) Generalized osteoarthritis of hand (Chronic) Osteoporosis (Chronic) Callus (Chronic) Osteopenia (Chronic) Muscle cramps (Chronic) Vitamin D deficiency (Chronic) Malignant neoplasm of female breast (Chronic) Bilateral hearing loss (Chronic) Chronic GERD (Chronic) RAD (reactive airway disease) (Chronic) Cervical spinal stenosis (Chronic) Cervical spinal stenosis (Chronic) Hyperlipidemia (Chronic) Hypertension (Chronic) Positive PPD (Chronic) Cottonwood's disease (Chronic) Left groin pain (Chronic) Swollen ankles (Acute) Hematuria (Chronic) History of partial knee replacement (Acute) Medical History (Updated 05/28/20 @ 18:26 by Antoni Mensah DO) Acute bronchitis (Chronic) Acute urinary tract infection (Chronic) Cottonwood's disease (Chronic) After cataract not obscuring vision (Chronic) Anemia (Chronic) Bacteremia (Chronic) Bilateral hearing loss (Chronic) 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) Blood pressure alteration (Chronic) Calf pain (Chronic) Callus (Chronic) Cervical spinal stenosis (Chronic) bilateral C5-6 Cervical spinal stenosis (Chronic) Left C4-5 Chest pain (Chronic) Chronic back pain (Chronic) Chronic GERD (Chronic) CKD stage G3a/A2, GFR 45-59 and albumin creatinine ratio 30-299 mg/g (Chronic) Probably hypertensive nephrosclerosis On full dose losartan therapy Diverticular disease (Chronic) Diverticulitis (Chronic) Edema (Chronic) Encounter for removal of sutures (Chronic) Generalized osteoarthritis of hand (Chronic) Glaucoma suspect of both eyes (Chronic) Heart murmur (Chronic) Hematuria (Chronic) Hyperlipidemia (Chronic) Hypermetropia, bilateral (Chronic) Hypertension (Chronic) Requiring 3-4 drugs for control Hypertensive nephrosclerosis (Chronic) Low-grade proteinuria is present on maximal dose ARB therapy Persistent edema Blood pressure goal is 130/80 in has yet to be achieved Knee pain, right (Chronic) Left arm numbness (Chronic) Left groin pain (Chronic) Malignant neoplasm of female breast (Chronic) Microalbuminuria (Suspected) This patient has had trace dipstick positive albuminuria which in the absence of diabetes of long duration is not much of a concern. 3 separate urine checks have failed to result in any readings of elevated protein losses i.e. random urine protein to creatinine ratio of greater than 0.2 Muscle cramps (Chronic) Osteopenia (Chronic) Osteoporosis (Chronic) Positive PPD (Chronic) Presbyopia (Chronic) RAD (reactive airway disease) (Chronic) Secondary to GERD Regular astigmatism of both eyes (Chronic) Retinal scar of left eye (Chronic) Strain of tendon (Chronic) Left medial thigh muscle Supraventricular tachycardia (Chronic) Swollen ankles (Acute) Suspect this is the result of amlodipine a well-known side effect Tenderness (Chronic) Viral upper respiratory tract infection (Chronic) Vitamin B 12 deficiency (Chronic) Vitamin D deficiency (Chronic) Surgical History H/O cataract removal with insertion of prosthetic lens (Chronic 01/20/99) H/O cataract removal with insertion of prosthetic lens (Chronic 01/06/99) H/O cataract removal with insertion of prosthetic lens (Chronic 01/15/99) H/O eye surgery (Chronic 01/06/99) Removal of lens material H/O eye surgery (Chronic 02/10/00) Removal of inner eye fluid H/O knee surgery (Chronic 08/07/16) Revision of knee joint H/O: hysterectomy (Chronic) due to fibroids History of cholecystectomy (Chronic) History of excision of lesion (Chronic) Pigmented lesion axilla x7 History of excision of lesion (Chronic) Skin tag History of partial knee replacement (Acute) Hx of tonsillectomy (Chronic) Family History Other No pertinent family history Social History (Updated 08/08/19 @ 10:46 by Zachariah Constantino MD) smoking status: Former smoker MEDS/ALLERGIES Home Medications and Allergies Home Medications Medication Instructions Recorded Confirmed Type gabapentin 100 mg PO HS 08/04/16 05/27/20 History cyanocobalamin (vitamin B-12) 1,000 mcg PO QDAY 03/15/19 05/27/20 History 1,000 mcg tablet losartan 100 mg tablet 100 mg PO QDAY 03/15/19 05/27/20 History metoprolol succinate 25 mg 25 mg PO QDAY 03/15/19 05/27/20 History tablet,extended release 24 hr chlorthalidone 25 mg tablet 25 mg PO QDAY #60 tab 07/21/19 05/27/20 Rx paroxetine HCl 10 mg PO DAILY 05/27/20 05/27/20 History Allergies Allergy/AdvReac Type Severity Reaction Status Date / Time aspirin [From Bufferin] AdvReac Mild Gastrointestinal Verified 05/27/20 17:11 Upset [id number] [From Bufferin] AdvReac Mild Gastrointestinal Verified 05/27/20 17:11 Upset magnesium [From Bufferin] AdvReac Mild Gastrointestinal Verified 05/27/20 17:11 Upset EXAM Constitutional Vitals: Temp Pulse Resp BP Pulse Ox 98.4 F 90 21 170/67 99 05/28/20 12:19 05/28/20 18:49 05/28/20 18:49 05/28/20 18:49 05/28/20 18:49 GENERAL: Alert but not verbally responsive, appears uncomfortable. HEENT: Atraumatic. PERRL at 2 mm, conjunctiva mildly injected, no scleral icterus. Hearing grossly intact. Oropharynx with dry mucous membranes and viscous stringy secretions. Lips are dry and chapped. Tongue midline, palate rises symmetrically. NECK: Supple without meningismus, no thyromegaly RESPIRATORY: Breath sounds clear bilaterally without rales, wheezes or rhonchi. Respiratory effort is unlabored. CARDIOVASCULAR: Regular rate and rhythm, 1/6 systolic murmur at the upper right sternal border, no gallop or rub appreciated. No peripheral edema. Carotid pulses 2+. GI: Abdomen soft, nontender, no guarding or rebound. Bowel sounds are present. No hepatosplenomegaly. MUSCULOSKELETAL: No joint erythema or swelling, normal range of motion in all extremities. SKIN: Warm, dry. Skin turgor decreased. NEUROLOGIC: Cranial nerves II through XII grossly intact as can best be tested. Muscle mass normal for age. Strength 5/5 in the upper and lower extremities. Sensation intact to light touch bilaterally. PSYCHIATRIC: Alert, cooperative with exam, trying to mumble, tearful and not able to respond directly to questions/nonverbal. Unable to assess mood, affect or insight. DATA Data Completed and Pending Labs: Labs from last 24 hours 05/28/20 05/28/20 05/28/20 13:49 09:33 08:24 WBC 6.6 RBC 4.04 Hgb 11.6 Hct 35.4 POC Hct 30.0 L MCV 87.6 MCH 28.7 MCHC 32.8 RDW 12.4 Plt Count 144 MPV 10.7 H Gran % 66.4 Lymph % (Auto) 22.1 [place] % (Auto) 11.1 Eos % (Auto) 0.2 Baso % (Auto) 0.2 Gran # 4.37 Lymph # (Auto) 1.45 L [place] # (Auto) 0.73 Eos # (Auto) 0.01 Baso # (Auto) 0.01 VBG Lactic Acid POC Sodium 141 Sodium 137 POC Potassium 4.4 Potassium 4.6 POC Chloride 112 H Chloride 107 Carbon Dioxide 15 L POC Total CO2 16 L Anion Gap 15.0 POC BUN 30 H BUN 33 H Creatinine 1.5 H POC Creatinine 1.4 H GFR Calculation 31 Glucose 85 POC Glucose 80 Calcium 8.1 L POC WB Ioniz Calcium 1.10 L Total Bilirubin 0.7 AST 34 ALT 13 Alkaline Phosphatase 54 Troponin T Total Protein 6.0 Albumin 3.0 L Globulin 3.0 Albumin/Globulin Ratio 1.0 Urine Color Urine Appearance Urine pH Ur Specific [place] Urine Protein Urine Glucose (UA) Urine Ketones Urine Occult Blood Urine Nitrate Urine Bilirubin Urine Urobilinogen Ur Leukocyte Esterase Urine RBC Urine WBC Ur Squamous Epith Cells Urine Bacteria Hyaline Casts Urine Mucus Ur Culture Indicated? 05/28/20 05/27/20 05/27/20 08:24 20:28 18:22 WBC TNP RBC TNP Hgb TNP Hct TNP POC Hct MCV TNP MCH TNP MCHC TNP RDW TNP Plt Count TNP MPV TNP Gran % Lymph % (Auto) [place] % (Auto) Eos % (Auto) Baso % (Auto) Gran # Lymph # (Auto) [place] # (Auto) Eos # (Auto) Baso # (Auto) VBG Lactic Acid 1.0 POC Sodium Sodium POC Potassium Potassium POC Chloride Chloride Carbon Dioxide POC Total CO2 Anion Gap POC BUN BUN Creatinine POC Creatinine GFR Calculation Glucose POC Glucose Calcium POC WB Ioniz Calcium Total Bilirubin AST ALT Alkaline Phosphatase Troponin T Total Protein Albumin Globulin Albumin/Globulin Ratio Urine Color Yellow Urine Appearance Clear Urine pH 5.0 Ur Specific [place] 1.014 Urine Protein 30 A Urine Glucose (UA) Negative Urine Ketones 5/tr A Urine Occult Blood Neg Urine Nitrate Neg Urine Bilirubin Neg Urine Urobilinogen Neg Ur Leukocyte Esterase Neg Urine RBC 2 H Urine WBC 1 Ur Squamous Epith Cells 1 Urine Bacteria 0 Hyaline Casts 4 H Urine Mucus Few Ur Culture Indicated? No 05/27/20 05/27/20 05/27/20 18:22 18:21 18:21 WBC 5.6 RBC 3.67 Hgb 10.6 L Hct 32.3 L POC Hct MCV 88.0 MCH 28.9 MCHC 32.8 RDW 12.5 Plt Count 106 L MPV 10.6 H Gran % 50.7 Lymph % (Auto) 33.9 [place] % (Auto) 15.2 H Eos % (Auto) 0.2 Baso % (Auto) 0 Gran # 2.86 Lymph # (Auto) 1.91 [place] # (Auto) 0.86 Eos # (Auto) 0.01 Baso # (Auto) 0 VBG Lactic Acid POC Sodium Sodium 137 POC Potassium Potassium 4.5 POC Chloride Chloride 109 H Carbon Dioxide 16 L POC Total CO2 Anion Gap 12.0 POC BUN BUN 41 H Creatinine 1.5 H POC Creatinine GFR Calculation 31 Glucose 93 POC Glucose Calcium 8.0 L POC WB Ioniz Calcium Total Bilirubin 0.6 AST 29 ALT 12 Alkaline Phosphatase 51 Troponin T < 0.01 Total Protein 5.9 Albumin 3.0 L Globulin 2.9 Albumin/Globulin Ratio 1.0 Urine Color Urine Appearance Urine pH Ur Specific [place] Urine Protein Urine Glucose (UA) Urine Ketones Urine Occult Blood Urine Nitrate Urine Bilirubin Urine Urobilinogen Ur Leukocyte Esterase Urine RBC Urine WBC Ur Squamous Epith Cells Urine Bacteria Hyaline Casts Urine Mucus Ur Culture Indicated? Impressions Impressions: CTA head and neck (images personally reviewed) IMPRESSION: 1. Mild calcified plaque without stenosis or ulceration. Otherwise negative CTA of the neck and [place] of [place] 2. Inflammatory disease of paranasal sinuses 3. Patchy infiltrates in the left upper lobe consistent with pneumonia CT head IMPRESSION: 1. No acute intracranial abnormality 2. Chronic deformity of the medial right orbital wall consistent with old medial blowout fracture. Inflammatory disease of the ethmoid and frontal sinuses Chest x-ray, 05/27 IMPRESSION: Negative AP chest x-ray A/P Assessment and plan (1) Pneumonia: Status: Acute Qualifiers: Laterality: left Lung location: upper lobe of lung Pneumonia type: due to unspecified organism Qualified Code(s): J18.9 - Pneumonia, unspecified organism Narrative A/P Narrative: 89-year-old female presenting with GI symptoms which have resolved. Also was weak and crying out of presentation. Has been withdrawn, not as interactive as usual. After spending the night in the ED, further evaluations revealed pneumonia. Pneumonia. Patchy infiltrates in the left upper lobe based on upper cuts of CT scan. Patient with high curb65 and pneumonia severity index scores, would benefit from inpatient treatment with IV antibiotics. No apparent pulmonary symptoms, no fever. She does live in a community with a higher incidence of COVID-19, she has been swabbed and that is pending. Inpatient admission Continue ceftriaxone azithromycin Follow-up COVID-19 Follow-up blood cultures Send urinary pneumococcal and Legionella antigens Send mycoplasma serology Altered mental status. Patient at first does not appear to be interacting. However she did cooperate with exam, rolled so I could examine her lungs, try to open her mouth. She sometimes attempts to mumble replies, other times is just nonverbal with questioning. Unclear if this represents encephalopathy secondary to pneumonia and infection combined with dehydration or other process. CT of the head without stroke findings, CTA without significant occlusions. Supportive care Follow mental status with treatment above Acute kidney injury on CKD. Creatinine is 1.6. Most recently was 1.1 back in August. She has hypertensive nephrosclerosis, is followed in nephrology clinic. She is likely dehydrated from poor oral intake, GI losses as well prior to admission. She received a liter of fluids last evening in the ED, but apparently did not get further overnight. She is received another liter today. She has received contrast for CT angiography, will require further hydration. IV hydration Follow renal function Avoid nephrotoxins, particularly after contrast load Generalized weakness. Likely secondary to combination of above. PT, OT evaluations Hypertension. Has been on losartan, metoprolol and chlorthalidone. Had been on amlodipine which was stopped due to lower extremity edema. At one point she was going to be on furosemide, though chlorthalidone is on her current list (though that may not be fully accurate). Hold losartan given renal function changes Continue with beta-duran and chlorthalidone May need as needed medications. Possible adrenal insufficiency. 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 I do not see any other mention of that and what notes are available. She is not on replacement steroids. Check a.m. cortisol Prophylaxis: Subcu unfractionated heparin given renal function CODE STATUS: Patient unable to provide guidance, thus is full code by default Time Spent With Patient Time: Total time spent is greater than 50% in coordination of care (as documented) at patient's floor/unit and/or counseling patient:
[2020-05-28] MEDS ORDERED: cefTRIAXone 1 GM in DEXTROSE 5% IN WATER 50 ML IV SCH (19:59)
[2020-05-28] MEDS: ONDANSETRON 4 MG/2 ML VIAL IV PRN (21:26)
[2020-05-28] MEDS: SENNOSIDES 1 TABLET PO SCH (21:26)
[2020-05-28] MEDS: DOCUSATE SODIUM 100 MG CAPSULE PO SCH (21:26)
[2020-05-28] MEDS: 0.9 % SODIUM CHLORIDE 1,000 ML IV SCH (21:34)
[2020-05-28] MEDS: GABAPENTIN 100 MG CAPSULE PO SCH (21:51)
[2020-05-28] MEDS: FAMOTIDINE 20 MG TABLET PO SCH (21:53)
[2020-05-28] MEDS: ACETAMINOPHEN 325 MG TABLET PO PRN (21:54)
[2020-05-28] MEDS: 0.9 % SODIUM CHLORIDE 10 ML SYRINGE IV SCH (22:00)
[2020-05-29] MEDS: 0.9 % SODIUM CHLORIDE 10 ML SYRINGE IV SCH ×3 (05:48→21:54)
[2020-05-29 07:05] LABS: Basophils # (Auto) 0 K/mcL (0.00-0.30); Basophils % (Auto) 0 % (0.0-2.0); Eosinophils # (Auto) 0.01 K/mcL (0.00-0.70); Eosinophils % (Auto) 0.1 % (0.0-7.0); Granulocytes % (Auto) 75.8 % (38.0-78.0); Hematocrit 31.2 % (34.1-44.9); Lymphocytes # (Auto) 1.15 K/mcL (1.50-4.80); Lymphocytes % (Auto) 15.4 % (15.5-49.0); Mean Cell Volume 88.6 fL (80.0-100.0); Mean Corpuscular HGB Conc 32.1 g/dL (31.0-36.0); Mean Platelet Volume 10.3 fL (7.4-10.4); Monocytes # (Auto) 0.65 K/mcL (0.10-0.90); Monocytes % (Auto) 8.7 % (1.0-12.0); Platelet Count 138 K/mcL (140-440); RBC 3.52 M/mcL (3.59-5.38); Red Cell Distribution Width 12.5 % (11.5-14.5); WBC 7.5 K/mcL (4.50-11.00)
[2020-05-29] MEDS: 0.9 % SODIUM CHLORIDE 1,000 ML IV SCH ×2 (07:32→19:16)
[2020-05-29 07:49] LABS: Blood Urea Nitrogen 28 mg/dl (8-23); Calcium 7.7 mg/dl (8.6-10.4); Carbon Dioxide 17 mmol/L (22-30); Glomerular Filtration Rate 36; Glucose 77 mg/dL (70-105)
[2020-05-29 07:52] LABS: Chloride 112 mmol/L (96-108)
[2020-05-29] MEDS ORDERED: AZITHROMYCIN 500 MG in DEXTROSE 5% IN WATER 250 ML IV SCH (10:00)
--- NOTE | 2020-05-29 10:10 | Internal Med Progress Note ---
SUBJECTIVE Subjective Patient information: Note initiated : 05/29/20 at 10:07 am Service Date, if different from initiated Date: [] Patient: Amna Lawrence 89 y/o F admitted on 05/28/20 for nausea, vomiting, diarrhea, weakness. Chief Complaint: f/u pneumonia Interval history: Patient remains tearful this morning. Kind of hard to understand. Why do see her she is able to express that she feels cold in the room was cold. Overall better able to communicate than yesterday. Follows instructions when asked her to roll to help examine her lungs. Urinary strep pneumo antigen is positive. Pertinent ROS: Other than complaining of being cold, does not really answer questions. Constitutional Vitals: Vital Signs Temp Pulse Resp BP Pulse Ox 99.2 F H 78 18 160/93 100 05/29/20 07:18 05/29/20 07:18 05/29/20 07:18 05/29/20 07:18 05/29/20 07:18 Period Temp Pulse Resp BP Sys/Li Pulse Ox Last 24 Hr 97.9 F-103.4 F 58-99 10-24 106-170/50-131 91-100 Intake and Output 05/28/20 05/29/20 05/29/20 21:59 05:59 13:59 Intake Total 1250 1000 Output Total 1 Balance 1250 -1 1000 Weight 148 lb 8 oz General: Elderly, uncomfortable appearing Chest: Good aeration with no rales, no wheezes, clear lung bell. No accessory muscle use. Cardiovascular: Regular Abdomen: Soft, no apparent tenderness Neuro: Alert, talking, at times able to understand other times mumbling replies. Able to position self in bed. Intake & Output: Intake & Output 05/28/20 05/29/20 05/29/20 21:59 05:59 13:59 Intake Total 1250 1000 Output Total 1 Balance 1250 -1 1000 Weight 148 lb 8 oz Intake: IV 1250 1000 Sodium Chloride 0.9% 1,000 ml @ 1000 1000 100 mls/hr IV .Q10H [facility] Rx#: [id number] Zithromax 500 mg In Dextrose 5% 250 in Water 250 ml @ 250 mls/hr IV ONCE ONE Rx#:[id number] Output: # of times incontinent of urine 1 Other: # Bowel Movements 0 OBJ DATA Labs CBC & Chem 7: 05/29/20 05:00 05/29/20 05:00 Labs: Abnormal Lab Results 05/29/20 05/29/20 05/28/20 05:00 05:00 13:49 RBC 3.52 L Hgb 10.0 L Hct 31.2 L POC Hct 30.0 L Plt Count 138 L MPV Lymph % (Auto) 15.4 L [place] % (Auto) Lymph # (Auto) 1.15 L POC Chloride 112 H Chloride 112 H Carbon Dioxide 17 L POC Total CO2 16 L POC BUN 30 H BUN 28 H Creatinine 1.3 H POC Creatinine 1.4 H Calcium 7.7 L POC WB Ioniz Calcium 1.10 L Albumin Urine Protein Urine Ketones Urine RBC Hyaline Casts Ur Strep pneumoniae Ag 05/28/20 05/28/20 05/28/20 09:33 09:05 08:24 RBC Hgb Hct POC Hct Plt Count MPV 10.7 H Lymph % (Auto) [place] % (Auto) Lymph # (Auto) 1.45 L POC Chloride Chloride Carbon Dioxide 15 L POC Total CO2 POC BUN BUN 33 H Creatinine 1.5 H POC Creatinine Calcium 8.1 L POC WB Ioniz Calcium Albumin 3.0 L Urine Protein Urine Ketones Urine RBC Hyaline Casts Ur Strep pneumoniae Ag Positive A 05/27/20 05/27/20 05/27/20 20:28 18:22 18:21 RBC Hgb 10.6 L Hct 32.3 L POC Hct Plt Count 106 L MPV 10.6 H Lymph % (Auto) [place] % (Auto) 15.2 H Lymph # (Auto) POC Chloride Chloride 109 H Carbon Dioxide 16 L POC Total CO2 POC BUN BUN 41 H Creatinine 1.5 H POC Creatinine Calcium 8.0 L POC WB Ioniz Calcium Albumin 3.0 L Urine Protein 30 A Urine Ketones 5/tr A Urine RBC 2 H Hyaline Casts 4 H Ur Strep pneumoniae Ag Meds: Medications Acetaminophen (Tylenol) 650 mg PO Q6HP PRN; Protocol PRN Reason: Per Pain Protocol/Fever > 101 Last Admin: 05/28/20 21:54 Dose: 650 mg Documented by: Ceftriaxone Sodium (Rocephin) 1 gm IV Q24H [facility] Chlorthalidone (Hygroton) 25 mg PO QDAY [facility] Cyanocobalamin (Vitamin B-12) 1,000 mcg PO QDAY [facility] Docusate Sodium (Colace) 100 mg PO BID [facility] Last Admin: 05/28/20 21:26 Dose: Not Given Documented by: Enoxaparin Sodium (Lovenox) 30 mg SQ DAILY [facility] Famotidine (Pepcid) 20 mg PO BID [facility] Last Admin: 05/28/20 21:53 Dose: 20 mg Documented by: Gabapentin (Neurontin) 100 mg PO [facility] Last Admin: 05/28/20 21:51 Dose: 100 mg Documented by: Sodium Chloride (Sodium Chloride 0.9%) 1,000 mls @ 100 mls/hr IV .Q10H [facility] Last Admin: 05/29/20 07:32 Dose: 100 mls/hr Documented by: Azithromycin 500 mg/ Dextrose 250 mls @ 250 mls/hr IV Q24H [facility]; Protocol Stop: 05/31/20 10:59 Metoprolol Succinate (Toprol Xl) 25 mg PO QDAY [facility] Ondansetron HCl (Zofran) 4 mg IV Q6HP PRN PRN Reason: Nausea And Vomiting Last Admin: 05/28/20 21:26 Dose: 4 mg Documented by: Paroxetine HCl (Paxil) 10 mg PO DAILY [facility] Senna (Senokot) 2 tab PO [facility] Last Admin: 05/28/20 21:26 Dose: Not Given Documented by: Sodium Chloride (Saline Flush) 10 ml IV Q8 [facility] Last Admin: 05/29/20 05:48 Dose: Not Given Documented by: A/P Assessment and plan (1) Pneumonia: Status: Acute Qualifiers: Laterality: left Lung location: upper lobe of lung Pneumonia type: due to unspecified organism Qualified Code(s): J18.9 - Pneumonia, unspecified organism Narrative A/P Narrative: 89-year-old female presenting with GI symptoms which have resolved. Also was weak and crying out of presentation. Has been withdrawn, not as interactive as usual. After spending the night in the ED, further evaluations revealed pneumonia. Pneumonia. Apparent pneumococcal pneumonia with positive urinary antigen. Patchy infiltrates in the left upper lobe based on upper cuts of CT scan. Pa tient with high curb65 and pneumonia severity index scores, would benefit from inpatient treatment with IV antibiotics. Continues to have no apparent pulmonary symptoms, febrile in the ED. She does live in a community with a higher incidence of COVID-19, she has been swabbed and that is pending. Inpatient admission Continue ceftriaxone, discontinue azithromycin Follow-up COVID-19 PCR Follow-up blood cultures Follow-up urinary Legionella antigen, though this does appear to be pneumococcal pneumonia Follow-up mycoplasma serology Altered mental status. Improving. Suspect a component of encephalopathy from infectious illness/pneumonia. Is improved, able to understand what she is say ing and she can make her concerns known at times, though at other times still drifts off to mumbling. Remains cooperative and able to follow instructions. CT of the head without stroke findings, CTA without significant occlusions. Supportive care Follow mental status with treatment above Acute kidney injury on CKD. Creatinine is 1.6 at presentation, improving with fluids. Renal function appears to have tolerated contrast load.. Most recently was 1.1 back in August. She has hypertensive nephrosclerosis, is followed in nephrology clinic. She is likely dehydrated from poor oral intake, GI losses as well prior to admission. She has received contrast for CT angiography, will require further hydration. Continue IV hydration Continue to follow renal function Avoid nephrotoxins, particularly after contrast load Generalized weakness. Likely secondary to combination of above. PT, OT evaluations Hypertension. Has been on losartan, metoprolol and chlorthalidone. Had been on amlodipine which was stopped due to lower extremity edema. At one point she was going to be on furosemide, though chlorthalidone is on her current list (though that may not be fully accurate). Hold losartan given renal function changes Continue with beta-duran and chlorthalidone May need as needed medications. Possible adrenal insufficiency. 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 I do not see any other mention of that and what notes are available. She is not on replacement steroids. Follow-up cortisol drawn this morning. Time Spent With Patient Time: Total time spent is greater than 50% in coordination of care (as documented) at patient's floor/unit and/or counseling patient: QUALITY VTE Deep Vein Thrombosis/Pulmonary Embolism Present on Admission: No
[2020-05-29] MEDS: DOCUSATE SODIUM 100 MG CAPSULE PO SCH ×2 (10:30→21:36)
[2020-05-29] MEDS: ENOXAPARIN 30 MG/0.3 ML SYRINGE SQ SCH (10:31)
[2020-05-29] MEDS: CHLORTHALIDONE 25 MG TABLET PO SCH (10:31)
[2020-05-29] MEDS: PARoxetine 20 MG TABLET PO SCH (10:31)
[2020-05-29] MEDS: cefTRIAXone 1 GM VIAL IV SCH (10:32)
[2020-05-29] MEDS: FAMOTIDINE 20 MG TABLET PO SCH ×2 (10:32→21:36)
[2020-05-29] MEDS: CYANOCOBALAMIN (VITAMIN B-12) 500 MCG TABLET PO SCH (10:32)
[2020-05-29] MEDS: METOPROLOL SUCCINATE 25 MG TAB.XL.24H PO SCH (10:32)
--- NOTE | 2020-05-29 12:53 | Internal Med Progress Note ---
SUBJECTIVE Subjective Patient information: Note initiated : 05/29/20 at 12:45 pm Service Date, if different from initiated Date: [] Patient: Amna Lawrence a 89 y/o F admitted on 05/28/20 for nausea, vomiting, diarrhea, weakness. Chief Complaint: [] Interval history: History of present illness: Ms. Lawrence is a 89 year old F with a history of chronic kidney disease, hypertension, hypercholesterolemia, osteoporosis who presented to the emergency department yesterday with nausea, vomiting, diarrhea and weakness. She was noted to have weakness, been crying, was not able to get around. She was evaluated, received fluids, symptoms were controlled and attempts were made for her to return home. However there were no contact numbers available for family or friends for the patient to return to her apartment (where she lives with her significant other). She stayed in the emergency department overnight. This morning, she seemed to have decreased interactivity. A caregiver was contacted who states that she is quite vibrant at baseline and generally independent. There was concern that this could represent stroke, she underwent stroke protocol, had CT angios of the head and neck. No evidence of stroke or significant blockages were found. However cuts through the left upper lung field revealed evidence of patchy infiltrates consistent with pneumonia. Full details of emergency department course are contained in Dr. Mensah's note. The patient is unable to provide any history. She is alert, mumbling answers at times which I cannot understand, appears to be a little distraught and crying. Cannot point out to any place where she is hurting or express what might be causing her discomfort. She does not appear to be struggling to breathe, there is no accessory muscle use and she is maintaining saturations. Given the patient's pneumonia, alteration in mental status, she is being admitted for treatment with IV antibiotics. Her pneumonia severity index is 109, and her curb65 score is 3. 05/29 Patient remains tearful this morning. Kind of hard to understand. Why do see her she is able to express that she feels cold in the room was cold. Overall better able to communicate than yesterday. Follows instructions when asked her to roll to help examine her lungs. Urinary strep pneumo antigen is positive. Pertinent ROS: Other than complaining of being cold, does not really answer questions. 05/30 Constitutional Vitals: Vital Signs Temp Pulse Resp BP Pulse Ox 102.2 F H 84 24 H 146/83 94 05/29/20 12:00 05/29/20 12:00 05/29/20 12:00 05/29/20 12:00 05/29/20 12:00 Period Temp Pulse Resp BP Sys/Li Pulse Ox Last 24 Hr 97.9 F-103.4 F 74-99 13-24 127-170/50-131 91-100 Intake and Output 05/28/20 05/29/20 05/29/20 21:59 05:59 13:59 Intake Total 1250 1300 Output Total 1 2 Balance 1250 -1 1298 Weight 67.358 kg Intake & Output: Intake & Output 05/28/20 05/29/20 05/29/20 21:59 05:59 13:59 Intake Total 1250 1300 Output Total 1 2 Balance 1250 -1 1298 Weight 67.358 kg Intake: IV 1250 1000 Sodium Chloride 0.9% 1,000 ml @ 1000 1000 100 mls/hr IV .Q10H [facility] Rx#: [id number] Zithromax 500 mg In Dextrose 5% 250 in Water 250 ml @ 250 mls/hr IV ONCE ONE Rx#:[id number] Oral 300 Output: # of times incontinent of urine 1 2 Other: Stool Size Moderate Stool Color Brown Stool Consistency Watery # Bowel Movements 0 # of times incontinent of 2 Bowels Exam: General: Alert, Awake, No acute Distress Eyes/N/T: EOMI, Head/Neck: neck supple, CV: RRR, No murmurs, Pulm: Clear b/l, no wheezing/rhonchi/rales Abd: soft, nontender, +BS x4 Ext: no clubbing/cyanosis/edema Neuro: Alert, no focal deficits, moves all extremities, Skin: warm/dry OBJ DATA Labs CBC & Chem 7: 05/29/20 05:00 05/29/20 05:00 Labs: Abnormal Lab Results 05/29/20 05/29/20 05/28/20 05:00 05:00 13:49 RBC 3.52 L Hgb 10.0 L Hct 31.2 L POC Hct 30.0 L Plt Count 138 L MPV Lymph % (Auto) 15.4 L [place] % (Auto) Lymph # (Auto) 1.15 L POC Chloride 112 H Chloride 112 H Carbon Dioxide 17 L POC Total CO2 16 L POC BUN 30 H BUN 28 H Creatinine 1.3 H POC Creatinine 1.4 H Calcium 7.7 L POC WB Ioniz Calcium 1.10 L Albumin Urine Protein Urine Ketones Urine RBC Hyaline Casts Ur Strep pneumoniae Ag 05/28/20 05/28/20 05/28/20 09:33 09:05 08:24 RBC Hgb Hct POC Hct Plt Count MPV 10.7 H Lymph % (Auto) [place] % (Auto) Lymph # (Auto) 1.45 L POC Chloride Chloride Carbon Dioxide 15 L POC Total CO2 POC BUN BUN 33 H Creatinine 1.5 H POC Creatinine Calcium 8.1 L POC WB Ioniz Calcium Albumin 3.0 L Urine Protein Urine Ketones Urine RBC Hyaline Casts Ur Strep pneumoniae Ag Positive A 05/27/20 05/27/20 05/27/20 20:28 18:22 18:21 RBC Hgb 10.6 L Hct 32.3 L POC Hct Plt Count 106 L MPV 10.6 H Lymph % (Auto) [place] % (Auto) 15.2 H Lymph # (Auto) POC Chloride Chloride 109 H Carbon Dioxide 16 L POC Total CO2 POC BUN BUN 41 H Creatinine 1.5 H POC Creatinine Calcium 8.0 L POC WB Ioniz Calcium Albumin 3.0 L Urine Protein 30 A Urine Ketones 5/tr A Urine RBC 2 H Hyaline Casts 4 H Ur Strep pneumoniae Ag Meds: Medications Acetaminophen (Tylenol) 650 mg PO Q6HP PRN; Protocol PRN Reason: Per Pain Protocol/Fever > 101 Last Admin: 05/28/20 21:54 Dose: 650 mg Documented by: Hydrocodone Bitart/Acetaminophen (Ono 5/325mg) 1 - 2 tab PO Q4H PRN; Protocol PRN Reason: Pain Ceftriaxone Sodium (Rocephin) 1 gm IV Q24H [facility] Last Admin: 05/29/20 10:32 Dose: 1 gm Documented by: Chlorthalidone (Hygroton) 25 mg PO QDAY [facility] Last Admin: 05/29/20 10:31 Dose: 25 mg Documented by: Cyanocobalamin (Vitamin B-12) 1,000 mcg PO QDAY [facility] Last Admin: 05/29/20 10:32 Dose: 1,000 mcg Documented by: Docusate Sodium (Colace) 100 mg PO BID [facility] Last Admin: 05/29/20 10:30 Dose: Not Given Documented by: Enoxaparin Sodium (Lovenox) 30 mg SQ DAILY [facility] Last Admin: 05/29/20 10:31 Dose: 30 mg Documented by: Famotidine (Pepcid) 20 mg PO BID [facility] Last Admin: 05/29/20 10:32 Dose: 20 mg Documented by: Gabapentin (Neurontin) 100 mg PO HS [facility] Last Admin: 05/28/20 21:51 Dose: 100 mg Documented by: Sodium Chloride (Sodium Chloride 0.9%) 1,000 mls @ 100 mls/hr IV .Q10H [facility] Last Admin: 05/29/20 07:32 Dose: 100 mls/hr Documented by: Lidocaine (Lidoderm) 1 patch TOPICAL DAILY [facility] Losartan Potassium (Cozaar) 100 mg PO DAILY [facility] Metoprolol Succinate (Toprol Xl) 25 mg PO QDAY [facility] Last Admin: 05/29/20 10:32 Dose: 25 mg Documented by: Ondansetron HCl (Zofran) 4 mg IV Q6HP PRN PRN Reason: Nausea And Vomiting Last Admin: 05/28/20 21:26 Dose: 4 mg Documented by: Paroxetine HCl (Paxil) 10 mg PO DAILY [facility] Last Admin: 05/29/20 10:31 Dose: 10 mg Documented by: Senna (Senokot) 2 tab PO [facility] Last Admin: 05/28/20 21:26 Dose: Not Given Documented by: Sodium Chloride (Saline Flush) 10 ml IV Q8 [facility] Last Admin: 05/29/20 05:48 Dose: Not Given Documented by: A/P Narrative A/P Narrative: A: *Pneumonia: Apparent pneumococcal pneumonia with positive urinary antigen. -Patchy infiltrates in the left upper lobe based on upper cuts of CT scan. -Patient with high curb65 and pneumonia severity index scores, would benefit from inpatient treatment with IV antibiotics. -Continues to have no apparent pulmonary symptoms, febrile in the ED. -COVID-19 pending. *AMS: Improving. Suspect a component of encephalopathy from infectious illness/pneumonia. -Remains cooperative and able to follow instructions. CT of the head without stroke findings, CTA without significant occlusions. *MARINA CKD : Creatinine is 1.6 at presentation, improving with fluids. Renal function appears to have tolerated contrast load. -She has hypertensive nephrosclerosis, is followed in nephrology clinic. -likely dehydrated from poor oral intake, GI losses as well prior to admission. received contrast for CT angiography, will require further hydration. *Generalized weakness: Likely secondary to combination of above *HTN: Has been on losartan, metoprolol and chlorthalidone. Had been on amlodipine which was stopped due to lower extremity edema. -At one point she was going to be on furosemide, though chlorthalidone is on her current list (though that may not be fully accurate). *Possible adrenal insufficiency: There is notation in her problem list of primar y adrenal insufficiency. I do not see any other mention of that and what notes are available. She is not on replacement steroids. AM cortisol ok. * P: Continue ceftriaxone, discontinue azithromycin Follow-up COVID-19 PCR Follow-up blood cultures Follow-up urinary Legionella antigen, though this does appear to be pneumococcal pneumonia Follow-up mycoplasma serology -Continue IV hydration Continue to follow renal function Avoid nephrotoxins, particularly after contrast load Hold losartan given renal function changes; Continue with beta-duran and chlorthalidone; May need as needed medications. - -pt/ot - -ppx: lovenox Time Spent With Patient Time: Total time spent is greater than 50% in coordination of care (as documented) at patient's floor/unit and/or counseling patient: QUALITY VTE Deep Vein Thrombosis/Pulmonary Embolism Present on Admission: No
[2020-05-29] MEDS: SENNOSIDES 1 TABLET PO SCH (21:36)
[2020-05-29] MEDS: GABAPENTIN 100 MG CAPSULE PO SCH (21:36)
[2020-05-30] MEDS: HYDROcodone/APAP 5/325MG TABLET PO PRN (01:58)
[2020-05-30] MEDS: 0.9 % SODIUM CHLORIDE 1,000 ML IV SCH (02:04)
[2020-05-30] MEDS: 0.9 % SODIUM CHLORIDE 10 ML SYRINGE IV SCH ×3 (04:36→22:38)
[2020-05-30 06:54] LABS: Basophils # (Auto) 0.04 K/mcL (0.00-0.30); Basophils % (Auto) 0.5 % (0.0-2.0); Eosinophils # (Auto) 0.01 K/mcL (0.00-0.70); Eosinophils % (Auto) 0.1 % (0.0-7.0); Granulocytes % (Auto) 78.9 % (38.0-78.0); Hematocrit 35.3 % (34.1-44.9); Hemoglobin 10.6 g/dL (11.2-15.7); Lymphocytes # (Auto) 1.15 K/mcL (1.50-4.80); Lymphocytes % (Auto) 14.1 % (15.5-49.0); Mean Cell Volume 97.2 fL (80.0-100.0); Mean Platelet Volume 10.4 fL (7.4-10.4); Monocytes # (Auto) 0.52 K/mcL (0.10-0.90); Monocytes % (Auto) 6.4 % (1.0-12.0); Platelet Count 148 K/mcL (140-440); RBC 3.63 M/mcL (3.59-5.38); Red Cell Distribution Width 12.9 % (11.5-14.5); WBC 8.2 K/mcL (4.50-11.00)
[2020-05-30 07:15] LABS: Blood Urea Nitrogen 23 mg/dl (8-23); Calcium 7.7 mg/dl (8.6-10.4); Carbon Dioxide 12 mmol/L (22-30); Chloride 111 mmol/L (96-108); Glomerular Filtration Rate 36; Glucose 55 mg/dL (70-105)
--- NOTE | 2020-05-30 07:22 | Internal Med Progress Note ---
SUBJECTIVE Subjective Patient information: Note initiated : 05/30/20 at 7:14 am Service Date, if different from initiated Date: [] Patient: Amna Lawrence a 89 y/o F admitted on 05/28/20 for nausea, vomiting, diarrhea, weakness. Chief Complaint: [] Interval history: History of present illness: Ms. Lawrence is a 89 year old F with a history of chronic kidney disease, hypertension, hypercholesterolemia, osteoporosis who presented to the emergency department yesterday with nausea, vomiting, diarrhea and weakness. She was noted to have weakness, been crying, was not able to get around. She was evaluated, received fluids, symptoms were controlled and attempts were made for her to return home. However there were no contact numbers available for family or friends for the patient to return to her apartment (where she lives with her significant other). She stayed in the emergency department overnight. This morning, she seemed to have decreased interactivity. A caregiver was contacted who states that she is quite vibrant at baseline and generally independent. There was concern that this could represent stroke, she underwent stroke protocol, had CT angios of the head and neck. No evidence of stroke or significant blockages were found. However cuts through the left upper lung field revealed evidence of patchy infiltrates consistent with pneumonia. Full details of emergency department course are contained in Dr. Mensah's note. The patient is unable to provide any history. She is alert, mumbling answers at times which I cannot understand, appears to be a little distraught and crying. Cannot point out to any place where she is hurting or express what might be causing her discomfort. She does not appear to be struggling to breathe, there is no accessory muscle use and she is maintaining saturations. Given the patient's pneumonia, alteration in mental status, she is being admitted for treatment with IV antibiotics. Her pneumonia severity index is 109, and her curb65 score is 3. 05/29 Patient remains tearful this morning. Kind of hard to understand. Why do see her she is able to express that she feels cold in the room was cold. Overall better able to communicate than yesterday. Follows instructions when asked her to roll to help examine her lungs. Urinary strep pneumo antigen is positive. Pertinent ROS: Other than complaining of being cold, does not really answer questions. 05/30 Patient seem to answer my simple questions answering yes or no or nodding head. Has no new complaints. I discussed CODE STATUS with her and she nodded no to CPR and intubation but I had a hard time confirming that we would focus on comfort and letting nature take its course and that sort of event. Review of Systems: denies headache/fever/chills/nausea/vomiting/chest or abdominal pain/dyspnea/diarrhea. Otherwise see above. Constitutional Vitals: Vital Signs Temp Pulse Resp BP Pulse Ox 100.1 F H 65 16 165/66 92 05/30/20 07:07 05/30/20 07:07 05/30/20 07:07 05/30/20 07:07 05/30/20 07:07 Period Temp Pulse Resp BP Sys/Li Pulse Ox Last 24 Hr 98.5 F-102.2 F 55-84 16-24 130-188/59-104 91-100 Intake and Output 05/29/20 05/30/20 05/30/20 21:59 05:59 13:59 Intake Total 6113 655 0374 Output Total 3 91 301 Balance 997 89 699 Weight 68.13 kg Intake & Output: Intake & Output 05/29/20 05/30/20 05/30/20 21:59 05:59 13:59 Intake Total 9158 673 4239 Output Total 3 91 301 Balance 997 89 699 Weight 68.13 kg Intake: IV 1000 1000 Sodium Chloride 0.9% 1,000 ml @ 1000 1000 100 mls/hr IV .Q10H GLENIS Rx#: [id number] Oral 180 Tube Feeding 0 Output: Void Amount 300 # of times incontinent of urine 3 1 1 Stool 90 Other: Urine Appearance Clear Urine Color Bright Yellow Stool Size Smear Stool Color Brown Brown Green Green Stool Consistency Liquid Liquid Loose # Bowel Movements 2 # of times incontinent of 1 Bowels Exam: General: Alert, Awake, No acute Distress Eyes/N/T: EOMI, Head/Neck: neck supple, CV: RRR, 2/6 SM Pulm: mild b/l rhonchi/rales, no wheezing Abd: soft, nontender, +BS x4 Ext: no clubbing/cyanosis/edema Neuro: Alert, no focal deficits, moves all extremities, Skin: warm/dry OBJ DATA Labs CBC & Chem 7: 05/30/20 04:31 05/30/20 04:31 Labs: Abnormal Lab Results 05/30/20 05/29/20 05/29/20 04:31 05:00 05:00 RBC 3.52 L Hgb 10.6 L 10.0 L Hct 31.2 L POC Hct MCHC 30.0 L Plt Count 138 L MPV Gran % 78.9 H Lymph % (Auto) 14.1 L 15.4 L Trimble % (Auto) Lymph # (Auto) 1.15 L 1.15 L POC Chloride Chloride 112 H Carbon Dioxide 17 L POC Total CO2 POC BUN BUN 28 H Creatinine 1.3 H POC Creatinine Calcium 7.7 L POC WB Ioniz Calcium Albumin Urine Protein Urine Ketones Urine RBC Hyaline Casts SARS-CoV-2 (PCR) Ur Strep pneumoniae Ag 05/28/20 05/28/20 05/28/20 13:49 09:33 09:05 RBC Hgb Hct POC Hct 30.0 L MCHC Plt Count MPV 10.7 H Gran % Lymph % (Auto) [place] % (Auto) Lymph # (Auto) 1.45 L POC Chloride 112 H Chloride Carbon Dioxide POC Total CO2 16 L POC BUN 30 H BUN Creatinine POC Creatinine 1.4 H Calcium POC WB Ioniz Calcium 1.10 L Albumin Urine Protein Urine Ketones Urine RBC Hyaline Casts SARS-CoV-2 (PCR) Ur Strep pneumoniae Ag Positive A 05/28/20 05/27/20 05/27/20 08:24 20:28 18:22 RBC Hgb 10.6 L Hct 32.3 L POC Hct MCHC Plt Count 106 L MPV 10.6 H Gran % Lymph % (Auto) [place] % (Auto) 15.2 H Lymph # (Auto) POC Chloride Chloride Carbon Dioxide 15 L POC Total CO2 POC BUN BUN 33 H Creatinine 1.5 H POC Creatinine Calcium 8.1 L POC WB Ioniz Calcium Albumin 3.0 L Urine Protein 30 A Urine Ketones 5/tr A Urine RBC 2 H Hyaline Casts 4 H SARS-CoV-2 (PCR) Ur Strep pneumoniae Ag 05/27/20 05/27/20 18:21 17:58 RBC Hgb Hct POC Hct MCHC Plt Count MPV Gran % Lymph % (Auto) [place] % (Auto) Lymph # (Auto) POC Chloride Chloride 109 H Carbon Dioxide 16 L POC Total CO2 POC BUN BUN 41 H Creatinine 1.5 H POC Creatinine Calcium 8.0 L POC WB Ioniz Calcium Albumin 3.0 L Urine Protein Urine Ketones Urine RBC Hyaline Casts SARS-CoV-2 (PCR) Detected A Ur Strep pneumoniae Ag Meds: Medications Acetaminophen (Tylenol) 650 mg PO Q6HP PRN; Protocol PRN Reason: Per Pain Protocol/Fever > 101 Last Admin: 05/28/20 21:54 Dose: 650 mg Documented by: Hydrocodone Bitart/Acetaminophen (Wells 5/325mg) 1 - 2 tab PO Q4H PRN; Protocol PRN Reason: Pain Last Admin: 05/30/20 01:58 Dose: 1 tab Documented by: Ceftriaxone Sodium (Rocephin) 1 gm IV Q24H [facility] Last Admin: 05/29/20 10:32 Dose: 1 gm Documented by: Chlorthalidone (Hygroton) 25 mg PO QDAY [facility] Last Admin: 05/29/20 10:31 Dose: 25 mg Documented by: Cyanocobalamin (Vitamin B-12) 1,000 mcg PO QDAY [facility] Last Admin: 05/29/20 10:32 Dose: 1,000 mcg Documented by: Docusate Sodium (Colace) 100 mg PO BID [facility] Last Admin: 05/29/20 21:36 Dose: Not Given Documented by: Enoxaparin Sodium (Lovenox) 30 mg SQ DAILY [facility] Last Admin: 05/29/20 10:31 Dose: 30 mg Documented by: Famotidine (Pepcid) 20 mg PO BID [facility] Last Admin: 05/29/20 21:36 Dose: 20 mg Documented by: Gabapentin (Neurontin) 100 mg PO HS [facility] Last Admin: 05/29/20 21:36 Dose: 100 mg Documented by: Sodium Chloride (Sodium Chloride 0.9%) 1,000 mls @ 100 mls/hr IV .Q10H [facility] Last Infusion: 05/30/20 07:10 Dose: Infused Documented by: Lidocaine (Lidoderm) 1 patch TOPICAL DAILY [facility] Losartan Potassium (Cozaar) 100 mg PO DAILY [facility] Metoprolol Succinate (Toprol Xl) 25 mg PO QDAY [facility] Last Admin: 05/29/20 10:32 Dose: 25 mg Documented by: Ondansetron HCl (Zofran) 4 mg IV Q6HP PRN PRN Reason: Nausea And Vomiting Last Admin: 05/28/20 21:26 Dose: 4 mg Documented by: Paroxetine HCl (Paxil) 10 mg PO DAILY [facility] Last Admin: 05/29/20 10:31 Dose: 10 mg Documented by: Angie (Senokot) 2 tab PO HS [facility] Last Admin: 05/29/20 21:36 Dose: Not Given Documented by: Sodium Chloride (Saline Flush) 10 ml IV Q8 [facility] Last Admin: 05/30/20 04:36 Dose: Not Given Documented by: A/P Assessment and plan (1) Pneumonia: Status: Acute Qualifiers: Laterality: left Lung location: upper lobe of lung Pneumonia type: due to unspecified organism Qualified Code(s): J18.9 - Pneumonia, unspecified organism Narrative A/P Narrative: A: *Pneumonia/COVID(+) & Strep Pneumiae (+): -Patchy infiltrates in the left upper lobe based on upper cuts of CT scan. f/u cxr with b/l infiltrates -Patient with high curb65 and pneumonia severity index scores -Continues to have no apparent pulmonary symptoms, on room air currently -Febrile o/n *Encephalopathy: Likely 2/2 infectious illness/pneumonia/?underlying cognitive impairment. -improving -Cooperative and able to follow instructions. CT of the head without stroke findings, CTA without significant occlusions. *MARINA on CKD III: Creatinine is 1.6 on admit, likely at baseline currently, improved with fluids. Renal function appears to have tolerated contrast load. -She has hypertensive nephrosclerosis, is followed in nephrology clinic. -likely dehydrated from poor oral intake, GI losses as well prior to admission. received contrast for CT angiography *Generalized weakness: Likely secondary to combination of above *HTN: Has been on losartan/metoprolol/chlorthalidone. Was on amlodipine which was stopped d/t LE edema. 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 I do not see any other mention of that and what notes are available. She is not on replacement steroids. AM cortisol ok. *Depression: on SSRI *Goals of care: P: Continue ceftriaxone, discontinue azithromycin -cont monitor resp status -d/c IV hydration, prn lasix Hold losartan given renal function changes; Continue with beta-duran and chlorthalidone; Continue to follow renal function Avoid nephrotoxins, particularly after contrast load -pt/ot -family discussion about code status -ppx: lovenox I discussed CODE STATUS and she nodded no to intubation and CPR but I had a hard time confirming the alternative which was comfort measures and let nature take its course. Time Spent With Patient Time: Total time spent is greater than 50% in coordination of care (as documented) at patient's floor/unit and/or counseling patient: QUALITY VTE Deep Vein Thrombosis/Pulmonary Embolism Present on Admission: No
[2020-05-30] MEDS ORDERED: SODIUM BICARBONATE 650 MG TABLET PO ONE ×2 (07:31→16:00)
[2020-05-30] MEDS: DOCUSATE SODIUM 100 MG CAPSULE PO SCH ×2 (07:48→22:26)
[2020-05-30] MEDS: ACETAMINOPHEN 325 MG TABLET PO PRN ×2 (08:15→15:34)
[2020-05-30] MEDS: FAMOTIDINE 20 MG TABLET PO SCH ×2 (08:15→22:25)
[2020-05-30] MEDS: PARoxetine 20 MG TABLET PO SCH (08:16)
[2020-05-30] MEDS: CHLORTHALIDONE 25 MG TABLET PO SCH (08:17)
[2020-05-30] MEDS: cefTRIAXone 1 GM VIAL IV SCH (08:17)
[2020-05-30] MEDS: CYANOCOBALAMIN (VITAMIN B-12) 500 MCG TABLET PO SCH (08:17)
[2020-05-30] MEDS: METOPROLOL SUCCINATE 25 MG TAB.XL.24H PO SCH (08:17)
[2020-05-30] MEDS: ENOXAPARIN 30 MG/0.3 ML SYRINGE SQ SCH (08:17)
[2020-05-30] MEDS: LIDOCAINE PATCH TOPICAL SCH (08:18)
--- NOTE | 2020-05-30 08:25 | XRay Report ---
INDICATION: f/u CHARLEY infiltrate TECHNIQUE: AP portable chest x-ray COMPARISON: Previous chest x-ray dated 05/27/2020 FINDINGS: Lungs:Patchy infiltrates throughout the left lung. There is right upper lobe, paramediastinal density consistent with infiltrate and volume loss. Findings are new since 05/27/2020. Appearance is consistent with pneumonia. Atypical pneumonias including covid are possible. Heart, vascular:There is mild cardiomegaly. Pulmonary vascularity is somewhat prominent. Infiltrates are not typical for pulmonary edema Mediastinum, diane:Mediastinum appears widened. This is probably secondary to right upper lobe volume loss Pleura:Elevated right hemidiaphragm, unchanged. No evidence for significant pleural effusion Skeletal:Negative. IMPRESSION: 1. Interval development of bilateral parenchymal infiltrates. 2. Findings are consistent with pneumonia as above 3. Cardiomegaly Interpreted and Authenticated by: Akin Merino 05/30/20
[2020-05-30] MEDS ORDERED: LOSARTAN 50 MG TABLET PO SCH (09:00)
[2020-05-30] MEDS ORDERED: FUROSEMIDE 40 MG/4 ML VIAL IV ONE (09:59)
[2020-05-30] MEDS ORDERED: ALBUMIN HUMAN 12.5 GM/50 ML BAG IV ONE (09:59)
[2020-05-30] MEDS ORDERED: LABETALOL 5 MG/ML ML IV PRN (10:01)
[2020-05-30] MEDS ORDERED: cefTRIAXone 1 GM VIAL IV ONE (10:01)
[2020-05-30] MEDS: LOPERAMIDE 2 MG CAPSULE PO PRN (13:38)
[2020-05-30] MEDS: hydrALAZINE 20 MG/ML VIAL IV PRN (15:32)
[2020-05-30] MEDS: GABAPENTIN 100 MG CAPSULE PO SCH (22:25)
[2020-05-30] MEDS: SENNOSIDES 1 TABLET PO SCH (22:26)
[2020-05-30] MEDS: ONDANSETRON 4 MG/2 ML VIAL IV PRN (23:46)
[2020-05-31] MEDS: HYDROcodone/APAP 5/325MG TABLET PO PRN ×4 (00:06→22:20)
[2020-05-31] MEDS: 0.9 % SODIUM CHLORIDE 10 ML SYRINGE IV SCH ×3 (06:03→22:22)
[2020-05-31 07:05] LABS: Basophils # (Auto) 0.02 K/mcL (0.00-0.30); Basophils % (Auto) 0.2 % (0.0-2.0); Eosinophils # (Auto) 0.01 K/mcL (0.00-0.70); Eosinophils % (Auto) 0.1 % (0.0-7.0); Granulocytes % (Auto) 82.9 % (38.0-78.0); Hematocrit 32.8 % (34.1-44.9); Lymphocytes # (Auto) 1.21 K/mcL (1.50-4.80); Lymphocytes % (Auto) 12.7 % (15.5-49.0); Mean Corpuscular HGB Conc 33.5 g/dL (31.0-36.0); Mean Platelet Volume 10.1 fL (7.4-10.4); Monocytes # (Auto) 0.39 K/mcL (0.10-0.90); Monocytes % (Auto) 4.1 % (1.0-12.0); Platelet Count 210 K/mcL (140-440); RBC 3.77 M/mcL (3.59-5.38); Red Cell Distribution Width 12.9 % (11.5-14.5); WBC 9.6 K/mcL (4.50-11.00)
[2020-05-31] MEDS: DOCUSATE SODIUM 100 MG CAPSULE PO SCH ×2 (07:19→22:02)
[2020-05-31 07:28] LABS: ALT/SGPT 16 U/l (0-40); AST/SGOT 53 U/l (0-37); Albumin 3.1 gm/dL (3.2-5.2); Albumin/Globulin Ratio 1.1 (1.0-2.3); Alkaline Phosphatase 52 U/L (39-117); Bilirubin,Direct < 0.2 mg/dL (0.0-0.3); Bilirubin,Total 0.4 mg/dL (0.0-1.0); Calcium 8.6 mg/dl (8.6-10.4); Chloride 106 mmol/L (96-108); Globulin 2.9 gm/dL (2.2-3.7); Glomerular Filtration Rate 33; Glucose 84 mg/dL (70-105); Lactate Dehydrogenase 464 U/L (94-250); Phosphorous 3.3 mg/dL (2.7-4.5); Triglycerides 141 mg/dl (<150)
--- NOTE | 2020-05-31 07:32 | Internal Med Progress Note ---
SUBJECTIVE Subjective Patient information: Note initiated : 05/31/20 at 7:28 am Service Date, if different from initiated Date: [] Patient: Amna Lawrence a 89 y/o F admitted on 05/28/20 for nausea, vomiting, diarrhea, weakness. Chief Complaint: [] Interval history: History of present illness: Ms. Lawrence is a 89 year old F with a history of chronic kidney disease, hypertension, hypercholesterolemia, osteoporosis who presented to the emergency department yesterday with nausea, vomiting, diarrhea and weakness. She was noted to have weakness, been crying, was not able to get around. She was evaluated, received fluids, symptoms were controlled and attempts were made for her to return home. However there were no contact numbers available for family or friends for the patient to return to her apartment (where she lives with her significant other). She stayed in the emergency department overnight. This morning, she seemed to have decreased interactivity. A caregiver was contacted who states that she is quite vibrant at baseline and generally independent. There was concern that this could represent stroke, she underwent stroke protocol, had CT angios of the head and neck. No evidence of stroke or significant blockages were found. However cuts through the left upper lung field revealed evidence of patchy infiltrates consistent with pneumonia. Full details of emergency department course are contained in Dr. Mensah's note. The patient is unable to provide any history. She is alert, mumbling answers at times which I cannot understand, appears to be a little distraught and crying. Cannot point out to any place where she is hurting or express what might be causing her discomfort. She does not appear to be struggling to breathe, there is no accessory muscle use and she is maintaining saturations. Given the patient's pneumonia, alteration in mental status, she is being admitted for treatment with IV antibiotics. Her pneumonia severity index is 109, and her curb65 score is 3. 05/29 Patient remains tearful this morning. Kind of hard to understand. Why do see her she is able to express that she feels cold in the room was cold. Overall better able to communicate than yesterday. Follows instructions when asked her to roll to help examine her lungs. Urinary strep pneumo antigen is positive. Pertinent ROS: Other than complaining of being cold, does not really answer questions. 05/30 Patient seem to answer my simple questions answering yes or no or nodding head. Has no new complaints. I discussed CODE STATUS with her and she nodded no to CPR and intubation but I had a hard time confirming that we would focus on comfort and letting nature take its course and that sort of event. Nursing also reached out to her next of kin, her niece (given that there has been a question of whether the patient is understanding code status), who asked that the patient be DNR. Also, I do feel that in talking with the patient this morning she did appear to understand my code status questions. 05/31 No issues overnight. Follow-up chest x-ray with worsening infiltrates despite diuresis. Still on room air. Difficult to understand her as she does not have her dentures but easier to understand response to simple yes/no questions. Review of Systems: denies headache/fever/chills/nausea/vomiting/chest or abdominal pa in/dyspnea/diarrhea. Otherwise see above. Constitutional Vitals: Vital Signs Temp Pulse Resp BP Pulse Ox 99.0 F 68 16 145/57 92 05/31/20 03:47 05/31/20 03:47 05/31/20 03:47 05/31/20 03:47 05/31/20 03:47 Period Temp Pulse Resp BP Sys/Li Pulse Ox Last 24 Hr 97.6 F-100.1 F 67-88 16-26 145-168/57-88 92-99 Intake and Output 05/30/20 05/31/20 05/31/20 21:59 05:59 13:59 Intake Total 170 Output Total 475 Balance 170 -475 Weight 68.039 kg Intake & Output: Intake & Output 05/30/20 05/31/20 05/31/20 21:59 05:59 13:59 Intake Total 170 Output Total 475 Balance 170 -475 Weight 68.039 kg Intake: Oral 170 Output: Urine Catheter Amount 325 Stool 150 Other: Meal Breakfast Percent of Meal Consumed Refused Urine Appearance Clear Clear Uretheral (Cristobal) Clear Urine Color Straw Dark Yellow Uretheral (Cristobal) Bright Yellow Stool Color Brown Green Stool Consistency Liquid Exam: General: Alert, Awake, No acute Distress Eyes/N/T: EOMI, Head/Neck: neck supple, CV: RRR, 2-3/6 SM Pulm: mild b/l rhonchi/rales, no wheezing Abd: soft, nontender, +BS x4 Ext: no clubbing/cyanosis/edema Neuro: Alert, no focal deficits, moves all extremities, Skin: warm/dry OBJ DATA Labs CBC & Chem 7: 05/31/20 06:19 05/31/20 06:19 Labs: Abnormal Lab Results 05/31/20 05/30/20 05/30/20 06:19 04:31 04:31 RBC Hgb 11.0 L 10.6 L Hct 32.8 L POC Hct MCHC 30.0 L Plt Count MPV Gran % 82.9 H 78.9 H Lymph % (Auto) 12.7 L 14.1 L Lymph # (Auto) 1.21 L 1.15 L POC Chloride Chloride 111 H Carbon Dioxide 12 L POC Total CO2 POC BUN BUN Creatinine 1.3 H POC Creatinine Glucose 55 L Calcium 7.7 L POC WB Ioniz Calcium Albumin SARS-CoV-2 (PCR) Ur Strep pneumoniae Ag 05/29/20 05/29/20 05/28/20 05:00 05:00 13:49 RBC 3.52 L Hgb 10.0 L Hct 31.2 L POC Hct 30.0 L MCHC Plt Count 138 L MPV Gran % Lymph % (Auto) 15.4 L Lymph # (Auto) 1.15 L POC Chloride 112 H Chloride 112 H Carbon Dioxide 17 L POC Total CO2 16 L POC BUN 30 H BUN 28 H Creatinine 1.3 H POC Creatinine 1.4 H Glucose Calcium 7.7 L POC WB Ioniz Calcium 1.10 L Albumin SARS-CoV-2 (PCR) Ur Strep pneumoniae Ag 05/28/20 05/28/20 05/28/20 09:33 09:05 08:24 RBC Hgb Hct POC Hct MCHC Plt Count MPV 10.7 H Gran % Lymph % (Auto) Lymph # (Auto) 1.45 L POC Chloride Chloride Carbon Dioxide 15 L POC Total CO2 POC BUN BUN 33 H Creatinine 1.5 H POC Creatinine Glucose Calcium 8.1 L POC WB Ioniz Calcium Albumin 3.0 L SARS-CoV-2 (PCR) Ur Strep pneumoniae Ag Positive A 05/27/20 17:58 RBC Hgb Hct POC Hct MCHC Plt Count MPV Gran % Lymph % (Auto) Lymph # (Auto) POC Chloride Chloride Carbon Dioxide POC Total CO2 POC BUN BUN Creatinine POC Creatinine Glucose Calcium POC WB Ioniz Calcium Albumin SARS-CoV-2 (PCR) Detected A Ur Strep pneumoniae Ag Meds: Medications Acetaminophen (Tylenol) 650 mg PO Q6HP PRN; Protocol PRN Reason: Per Pain Protocol/Fever > 101 Last Admin: 05/30/20 15:34 Dose: 650 mg Documented by: Hydrocodone Bitart/Acetaminophen (Glidden 5/325mg) 1 - 2 tab PO Q4H PRN; Protocol PRN Reason: Pain Last Admin: 05/31/20 00:06 Dose: 1 tab Documented by: Chlorthalidone (Hygroton) 25 mg PO QDAY [facility] Last Admin: 05/30/20 08:17 Dose: 25 mg Documented by: Cyanocobalamin (Vitamin B-12) 1,000 mcg PO QDAY [facility] Last Admin: 05/30/20 08:17 Dose: 1,000 mcg Documented by: Docusate Sodium (Colace) 100 mg PO BID [facility] Last Admin: 05/31/20 07:19 Dose: Not Given Documented by: Enoxaparin Sodium (Lovenox) 30 mg SQ DAILY [facility] Last Admin: 05/30/20 08:17 Dose: 30 mg Documented by: Famotidine (Pepcid) 20 mg PO BID [facility] Last Admin: 05/30/20 22:25 Dose: 20 mg Documented by: Gabapentin (Neurontin) 100 mg PO HS [facility] Last Admin: 05/30/20 22:25 Dose: 100 mg Documented by: Hydralazine HCl (Apresoline) 0 mg IV Q2HP PRN PRN Reason: Hypertension Last Admin: 05/30/20 15:32 Dose: 10 mg Documented by: Ceftriaxone Sodium 2 gm/ (Dextrose) 50 mls @ 100 mls/hr IV Q24H [facility] Labetalol HCl (Trandate) 0 mg IV Q2HP PRN PRN Reason: Hypertension Lidocaine (Lidoderm) 1 patch TOPICAL DAILY [facility] Last Admin: 05/30/20 08:18 Dose: 1 patch Documented by: Loperamide HCl (Imodium) 2 mg PO PRN PRN PRN Reason: Diarrhea Last Admin: 05/30/20 13:38 Dose: 2 mg Documented by: Metoprolol Succinate (Toprol Xl) 25 mg PO QDAY [facility] Last Admin: 05/30/20 08:17 Dose: 25 mg Documented by: Ondansetron HCl (Zofran) 4 mg IV Q6HP PRN PRN Reason: Nausea And Vomiting Last Admin: 05/30/20 23:46 Dose: 4 mg Documented by: Paroxetine HCl (Paxil) 10 mg PO DAILY [facility] Last Admin: 05/30/20 08:16 Dose: 10 mg Documented by: Angie (Senokot) 2 tab PO HS [facility] Last Admin: 05/30/20 22:26 Dose: Not Given Documented by: Sodium Chloride (Saline Flush) 10 ml IV Q8 [facility] Last Admin: 05/31/20 06:03 Dose: Not Given Documented by: A/P Assessment and plan (1) Pneumonia: Status: Acute Qualifiers: Laterality: left Lung location: upper lobe of lung Pneumonia type: due to unspecified organism Qualified Code(s): J18.9 - Pneumonia, unspecified organism Narrative A/P Narrative: A: *Pneumonia/COVID(+) & Strep Pneumiae (+): -f/u cxr with b/l infiltrates -Patient with high curb65 and pneumonia severity index scores -No respiratory distress or oxygen need at this point -Febrile again o/n but curve improving *Encephalopathy: Likely 2/2 infectious illness/pneumonia/?underlying cognitive impairment. -improving -Cooperative and able to follow instructions. CT of the head without stroke findings, CTA without significant occlusions. *?MARINA on CKD III: Creatinine is 1.6 on admit, likely at baseline currently, improved with fluids initially. Renal function appears to have tolerated contrast load. -She has hypertensive nephrosclerosis, is followed in nephrology clinic. -likely dehydrated from poor oral intake, GI losses as well prior to admission. received contrast for CT angiography *Generalized weakness: 2/2 combination of above *HTN: Has been on losartan/metoprolol/chlorthalidone. Was on amlodipine which was stopped d/t LE edema. 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 I do not see any other mention of that and what notes are available. She is not on replacement steroids. AM cortisol ok. *Depression: on SSRI *Diarrhea: c. diff neg *Hypomag: prn replace *Goals of care: P: Continue ceftriaxone, finished azithromycin -cont monitor resp status -d/c IV hydration, prn lasix Hold losartan given renal function changes; hold chlorthalidone while monitoring renal fxn; Continue with beta-duran, Continue to follow renal function Avoid nephrotoxins, particularly after contrast load -pt/ot -f/u cxr -ppx: lovenox DNR Time Spent With Patient Time: Total time spent is greater than 50% in coordination of care (as documented) at patient's floor/unit and/or counseling patient: QUALITY VTE Deep Vein Thrombosis/Pulmonary Embolism Present on Admission: No
[2020-05-31] MEDS ORDERED: MAGNESIUM SULFATE 2 GM/50 ML BAG IV ONE (07:34)
[2020-05-31 07:38] LABS: Blood Urea Nitrogen 28 mg/dl (8-23); Carbon Dioxide 19 mmol/L (22-30)
--- NOTE | 2020-05-31 08:16 | XRay Report ---
INDICATION: f/u infiltrate after lasix TECHNIQUE: AP portable semiupright chest x-ray COMPARISON: Previous examinations dated 05/30/2020, 05/27/2020 FINDINGS: Lungs:Bilateral pulmonary parenchymal infiltrates consistent with pneumonia. Findings are worse than on previous examination and new since 05/27/2020. Heart, vascular:Moderate cardiomegaly is unchanged. Mediastinum, diane:No mediastinal widening. No hilar mass Pleura:No pleural fluid. No pleural-based mass or calcification Skeletal:Negative. IMPRESSION: 1. Increasing pulmonary parenchymal infiltrates consistent with pneumonia 2. Findings are slightly worse on 05/30/2020 and new since 05/27/2020 Interpreted and Authenticated by: Akin Merino 05/31/20
[2020-05-31] MEDS: CYANOCOBALAMIN (VITAMIN B-12) 500 MCG TABLET PO SCH (08:31)
[2020-05-31] MEDS: FAMOTIDINE 20 MG TABLET PO SCH ×2 (08:31→22:20)
[2020-05-31] MEDS: CHLORTHALIDONE 25 MG TABLET PO SCH (08:32)
[2020-05-31] MEDS: METOPROLOL SUCCINATE 25 MG TAB.XL.24H PO SCH (08:32)
[2020-05-31] MEDS: PARoxetine 20 MG TABLET PO SCH (08:38)
[2020-05-31] MEDS: LIDOCAINE PATCH TOPICAL SCH (08:39)
[2020-05-31] MEDS: ENOXAPARIN 30 MG/0.3 ML SYRINGE SQ SCH (08:40)
[2020-05-31] MEDS: cefTRIAXone 2 GM in DEXTROSE 5% IN WATER 50 ML IV SCH (08:42)
[2020-05-31] MEDS: ONDANSETRON 4 MG/2 ML VIAL IV PRN (09:56)
[2020-05-31] MEDS: LOPERAMIDE 2 MG CAPSULE PO PRN (12:12)
[2020-05-31] MEDS: SENNOSIDES 1 TABLET PO SCH (22:02)
[2020-05-31] MEDS: GABAPENTIN 100 MG CAPSULE PO SCH (22:20)
[2020-06-01] MEDS: 0.9 % SODIUM CHLORIDE 10 ML SYRINGE IV SCH ×3 (05:19→21:36)
[2020-06-01] MEDS: DOCUSATE SODIUM 100 MG CAPSULE PO SCH ×2 (07:20→19:58)
[2020-06-01 07:40] LABS: Basophils # (Auto) 0.03 K/mcL (0.00-0.30); Basophils % (Auto) 0.4 % (0.0-2.0); Eosinophils # (Auto) 0.04 K/mcL (0.00-0.70); Eosinophils % (Auto) 0.5 % (0.0-7.0); Granulocytes % (Auto) 67.3 % (38.0-78.0); Hematocrit 37.4 % (34.1-44.9); Hemoglobin 12.5 g/dL (11.2-15.7); Lymphocytes # (Auto) 1.72 K/mcL (1.50-4.80); Lymphocytes % (Auto) 23.4 % (15.5-49.0); Mean Cell Volume 90.3 fL (80.0-100.0); Mean Corpuscular HGB Conc 33.4 g/dL (31.0-36.0); Mean Platelet Volume 9.9 fL (7.4-10.4); Monocytes # (Auto) 0.62 K/mcL (0.10-0.90); Monocytes % (Auto) 8.4 % (1.0-12.0); Platelet Count 247 K/mcL (140-440); RBC 4.14 M/mcL (3.59-5.38); Red Cell Distribution Width 13.3 % (11.5-14.5); WBC 7.4 K/mcL (4.50-11.00)
--- NOTE | 2020-06-01 07:44 | Internal Med Progress Note ---
SUBJECTIVE Subjective Patient information: Note initiated : 06/01/20 at 7:39 am Service Date, if different from initiated Date: [] Patient: Amna Lawrence a 89 y/o F admitted on 05/28/20 for nausea, vomiting, diarrhea, weakness. Chief Complaint: [] Interval history: History of present illness: Ms. Lawrence is a 89 year old F with a history of chronic kidney disease, hypertension, hypercholesterolemia, osteoporosis who presented to the emergency department yesterday with nausea, vomiting, diarrhea and weakness. She was noted to have weakness, been crying, was not able to get around. She was evaluated, received fluids, symptoms were controlled and attempts were made for her to return home. However there were no contact numbers available for family or friends for the patient to return to her apartment (where she lives with her significant other). She stayed in the emergency department overnight. This morning, she seemed to have decreased interactivity. A caregiver was contacted who states that she is quite vibrant at baseline and generally independent. There was concern that this could represent stroke, she underwent stroke protocol, had CT angios of the head and neck. No evidence of stroke or significant blockages were found. However cuts through the left upper lung field revealed evidence of patchy infiltrates consistent with pneumonia. Full details of emergency department course are contained in Dr. Mensah's note. The patient is unable to provide any history. She is alert, mumbling answers at times which I cannot understand, appears to be a little distraught and crying. Cannot point out to any place where she is hurting or express what might be causing her discomfort. She does not appear to be struggling to breathe, there is no accessory muscle use and she is maintaining saturations. Given the patient's pneumonia, alteration in mental status, she is being admitted for treatment with IV antibiotics. Her pneumonia severity index is 109, and her curb65 score is 3. 05/29 Patient remains tearful this morning. Kind of hard to understand. Why do see her she is able to express that she feels cold in the room was cold. Overall better able to communicate than yesterday. Follows instructions when asked her to roll to help examine her lungs. Urinary strep pneumo antigen is positive. Pertinent ROS: Other than complaining of being cold, does not really answer questions. 05/30 Patient seem to answer my simple questions answering yes or no or nodding head. Has no new complaints. I discussed CODE STATUS with her and she nodded no to CPR and intubation but I had a hard time confirming that we would focus on comfort and letting nature take its course and that sort of event. Nursing also reached out to her next of kin, her niece (given that there has been a question of whether the patient is understanding code status), who asked that the patient be DNR. Also, I do feel that in talking with the patient this morning she did appear to understand my code status questions. 05/31 No issues overnight. Follow-up chest x-ray with worsening infiltrates despite diuresis. Still on room air. Difficult to understand her as she does not have her dentures but easier to understand response to simple yes/no questions. 06/01 Nursing had put oxygen on the patient last night. Also per nursing she has not eating or drinking very much. Creatinine elevated today. Will attempt to wean down off oxygen and then follow-up chest x-ray in the morning. IV hydration today and reevaluate renal function tomorrow. She seems to be declining and especially given her underlying COVID diagnosis, concern for prognosis. Review of Systems: denies headache/fever/chills/nausea/vomiting/chest or abdominal pain/dyspne a/diarrhea. Otherwise see above. Constitutional Vitals: Vital Signs Temp Pulse Resp BP Pulse Ox 98.4 F 62 20 123/74 92 06/01/20 05:10 06/01/20 05:10 06/01/20 05:10 06/01/20 05:10 06/01/20 05:10 Period Temp Pulse Resp BP Sys/Li Pulse Ox Last 24 Hr 97.7 F-99.5 F 58-82 18-20 123-157/68-92 90-95 Intake and Output 05/31/20 06/01/20 06/01/20 21:59 05:59 13:59 Intake Total 200 Output Total 175 200 Balance 25 -200 Weight 66.95 kg Intake & Output: Intake & Output 05/31/20 06/01/20 06/01/20 21:59 05:59 13:59 Intake Total 200 Output Total 175 200 Balance 25 -200 Weight 66.95 kg Intake: Nourishment/Supplement quantity 200 (ml) Output: Urine Catheter Amount 175 200 Other: Meal Lunch Percent of Meal Consumed 10 % Feeding Ability Total Assistance Urine Appearance Clear Clear Uretheral (Cristobal) Clear Urine Color Bright Yellow Dark Yellow Uretheral (Cristobal) Bright Yellow Urine Odor Normal Exam: General: Awake, No acute Distress Eyes/N/T: EOMI, Head/Neck: neck supple, CV: RRR, 2-3/6 SM Pulm: mild b/l rhonchi/rales, no wheezing Abd: soft, nontender, +BS x4 Ext: no clubbing/cyanosis/edema Neuro: drowsy but awakens, no focal deficits, moves all extremities, Skin: warm/dry OBJ DATA Labs CBC & Chem 7: 06/01/20 05:05 06/01/20 05:05 Labs: Abnormal Lab Results 05/31/20 05/31/20 05/31/20 10:45 06:19 06:19 Hgb 11.0 L Hct 32.8 L MCHC Gran % 82.9 H Lymph % (Auto) 12.7 L Lymph # (Auto) 1.21 L Chloride Carbon Dioxide 19 L BUN 28 H Creatinine 1.4 H Glucose Calcium Magnesium 1.5 L AST 53 H Lactate Dehydrogenase 464 H NT-Pro-B Natriuret Pep 4994.0 H Albumin 3.1 L SARS-CoV-2 (PCR) 05/30/20 05/30/20 05/29/20 04:31 04:31 05:00 Hgb 10.6 L Hct MCHC 30.0 L Gran % 78.9 H Lymph % (Auto) 14.1 L Lymph # (Auto) 1.15 L Chloride 111 H 112 H Carbon Dioxide 12 L 17 L BUN 28 H Creatinine 1.3 H 1.3 H Glucose 55 L Calcium 7.7 L 7.7 L Magnesium AST Lactate Dehydrogenase NT-Pro-B Natriuret Pep Albumin SARS-CoV-2 (PCR) 05/27/20 17:58 Hgb Hct MCHC Gran % Lymph % (Auto) Lymph # (Auto) Chloride Carbon Dioxide BUN Creatinine Glucose Calcium Magnesium AST Lactate Dehydrogenase NT-Pro-B Natriuret Pep Albumin SARS-CoV-2 (PCR) Detected A Meds: Medications Acetaminophen (Tylenol) 650 mg PO Q6HP PRN; Protocol PRN Reason: Per Pain Protocol/Fever > 101 Last Admin: 05/30/20 15:34 Dose: 650 mg Documented by: Hydrocodone Bitart/Acetaminophen ([place] 5/325mg) 1 - 2 tab PO Q4H PRN; Protocol PRN Reason: Pain Last Admin: 05/31/20 22:20 Dose: 1 tab Documented by: Cyanocobalamin (Vitamin B-12) 1,000 mcg PO QDAY [facility] Last Admin: 05/31/20 08:31 Dose: 1,000 mcg Documented by: Docusate Sodium (Colace) 100 mg PO BID [facility] Last Admin: 06/01/20 07:20 Dose: Not Given Documented by: Enoxaparin Sodium (Lovenox) 30 mg SQ DAILY [facility] Last Admin: 05/31/20 08:40 Dose: 30 mg Documented by: Famotidine (Pepcid) 20 mg PO BID [facility] Last Admin: 05/31/20 22:20 Dose: 20 mg Documented by: Gabapentin (Neurontin) 100 mg PO [facility] Last Admin: 05/31/20 22:20 Dose: 100 mg Documented by: Hydralazine HCl (Apresoline) 0 mg IV Q2HP PRN PRN Reason: Hypertension Last Admin: 05/30/20 15:32 Dose: 10 mg Documented by: Ceftriaxone Sodium 2 gm/ (Dextrose) 50 mls @ 100 mls/hr IV Q24H [facility] Last Infusion: 05/31/20 09:12 Dose: Infused Documented by: Labetalol HCl (Trandate) 0 mg IV Q2HP PRN PRN Reason: Hypertension Lidocaine (Lidoderm) 1 patch TOPICAL DAILY [facility] Last Admin: 05/31/20 08:39 Dose: 1 patch Documented by: Loperamide HCl (Imodium) 2 mg PO PRN PRN PRN Reason: Diarrhea Last Admin: 05/31/20 12:12 Dose: 2 mg Documented by: Metoprolol Succinate (Toprol Xl) 25 mg PO QDAY [facility] Last Admin: 05/31/20 08:32 Dose: 25 mg Documented by: Ondansetron HCl (Zofran) 4 mg IV Q6HP PRN PRN Reason: Nausea And Vomiting Last Admin: 05/31/20 09:56 Dose: 4 mg Documented by: Paroxetine HCl (Paxil) 10 mg PO DAILY [facility] Last Admin: 05/31/20 08:38 Dose: 10 mg Documented by: Senna (Senokot) 2 tab PO [facility] Last Admin: 05/31/20 22:02 Dose: Not Given Documented by: Sodium Chloride (Saline Flush) 10 ml IV Q8 [facility] Last Admin: 06/01/20 05:19 Dose: 10 ml Documented by: A/P Assessment and plan (1) Pneumonia: Status: Acute Qualifiers: Laterality: left Lung location: upper lobe of lung Pneumonia type: due to unspecified organism Qualified Code(s): J18.9 - Pneumonia, unspecified organism Narrative A/P Narrative: A: *Pneumonia/COVID(+) & Strep Pneumiae (+): -f/u cxr with b/l infiltrates -Patient with high curb65 and pneumonia severity index scores -AFebrile o/n -required O2 last night *Acute Hypoxic Resp failure: 2/2 above -required O2 last night *Encephalopathy: Likely 2/2 infectious illness/pneumonia/?underlying cognitive impairment. -improving -Cooperative and able to follow instructions. CT of the head without stroke findings, CTA without significant occlusions. *MARINA on CKD III: ?ATN from contrast but pt not eating/drinking much so could be prerenal -She has hypertensive nephrosclerosis, is followed in nephrology clinic. -likely dehydrated from poor oral intake, GI losses as well prior to admission. received contrast for CT angiography *Generalized weakness: 2/2 combination of above *HTN: Has been on losartan/metoprolol/chlorthalidone. Was on amlodipine which was stopped d/t LE edema. 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 I do not see any other mention of that and what notes are available. She is not on replacement steroids. AM cortisol ok. *Depression: on SSRI *Diarrhea: c. diff neg *Hypomag: prn replace *Goals of care: P: Continue Abx -cont monitor resp status -urine studies, gentle IVF today, if renal fxn continues to worsen will d/w Nephro Hold losartan given renal function changes; hold chlorthalidone while monitoring renal fxn; Continue with beta-duran, Continue to follow renal function, Avoid nephrotoxins, particularly after contrast load -IS/Acapella -pt/ot -f/u cxr -ppx: lovenox DNR Time Spent With Patient Time: Total time spent is greater than 50% in coordination of care (as documented) at patient's floor/unit and/or counseling patient: QUALITY VTE Deep Vein Thrombosis/Pulmonary Embolism Present on Admission: No
[2020-06-01 07:47] LABS: ALT/SGPT 16 U/l (0-40); AST/SGOT 57 U/l (0-37); Albumin 3.2 gm/dL (3.2-5.2); Albumin/Globulin Ratio 0.9 (1.0-2.3); Alkaline Phosphatase 60 U/L (39-117); Bilirubin,Direct < 0.2 mg/dL (0.0-0.3); Bilirubin,Total 0.4 mg/dL (0.0-1.0); Calcium 9.2 mg/dl (8.6-10.4); Carbon Dioxide 19 mmol/L (22-30); Chloride 107 mmol/L (96-108); Globulin 3.6 gm/dL (2.2-3.7); Glucose 83 mg/dL (70-105); Lactate Dehydrogenase 473 U/L (94-250); Phosphorous 3.2 mg/dL (2.7-4.5); Triglycerides 179 mg/dl (<150); Uric Acid 7.8 mg/dL (2.5-8.0)
[2020-06-01 07:48] LABS: Blood Urea Nitrogen 36 mg/dl (8-23); Glomerular Filtration Rate 20
[2020-06-01] MEDS: METOPROLOL SUCCINATE 25 MG TAB.XL.24H PO SCH (08:52)
[2020-06-01] MEDS: HYDROcodone/APAP 5/325MG TABLET PO PRN ×4 (08:52→19:04)
[2020-06-01] MEDS: PARoxetine 20 MG TABLET PO SCH (08:53)
[2020-06-01] MEDS: CYANOCOBALAMIN (VITAMIN B-12) 500 MCG TABLET PO SCH (08:53)
[2020-06-01] MEDS: FAMOTIDINE 20 MG TABLET PO SCH ×2 (08:53→21:34)
[2020-06-01] MEDS: ENOXAPARIN 30 MG/0.3 ML SYRINGE SQ SCH (09:04)
[2020-06-01] MEDS: LIDOCAINE PATCH TOPICAL SCH (09:05)
[2020-06-01] MEDS: cefTRIAXone 2 GM in DEXTROSE 5% IN WATER 50 ML IV SCH (09:05)
[2020-06-01 12:48] LABS: Appearance,Urine CLEAR; Bilirubin,Urine NEG (NEG); Color,Urine YELLOW; Glucose,Urine (UA) NEGATIVE (NEG); Ketones,Urine 5/TR mg/dL (NEG); Leukocyte Esterase,Urine NEG /uL (NEG); Nitrate,Urine NEG (NEG); Protein,Urine 100 mg/dL (NEG); Specific Gravity,Urine 1.021 (1.000-1.035); Urine Blood 0.2 mg/dL (<0.03); Urobilinogen,Urine NEG (NEG)
[2020-06-01] MEDS ORDERED: SODIUM BICARBONATE VIAL 150 MEQ in DEXTROSE 5% IN WATER 850 ML IV SCH (13:00)
[2020-06-01 13:13] LABS: Bacteria,Urine FEW /hpf (0); Culture Indicated,Urine YES; Mucus,Urine FEW /hpf (0); Urine Budding Yeast FEW /hpf (0); Urine Hyaline Cast 3 /lpf (0-2); Urine Hyphae Yeast FEW /hpf (0); Urine RBC 4 /hpf (0-1); Urine Squamous Epithelial Cell 2 /hpf (0-4); Urine WBC 2 /hpf (0-4)
[2020-06-01] MEDS: SENNOSIDES 1 TABLET PO SCH (20:10)
[2020-06-01] MEDS: GABAPENTIN 100 MG CAPSULE PO SCH (21:34)
[2020-06-02] MEDS: HYDROcodone/APAP 5/325MG TABLET PO PRN ×3 (04:44→21:23)
[2020-06-02] MEDS: 0.9 % SODIUM CHLORIDE 10 ML SYRINGE IV SCH ×3 (05:38→22:41)
[2020-06-02 07:05] LABS: ALT/SGPT 17 U/l (0-40); AST/SGOT 53 U/l (0-37); Albumin 3.1 gm/dL (3.2-5.2); Albumin/Globulin Ratio 0.9 (1.0-2.3); Alkaline Phosphatase 53 U/L (39-117); Bilirubin,Direct < 0.2 mg/dL (0.0-0.3); Bilirubin,Total 0.3 mg/dL (0.0-1.0); Blood Urea Nitrogen 38 mg/dl (8-23); Calcium 9.4 mg/dl (8.6-10.4); Chloride 105 mmol/L (96-108); Globulin 3.3 gm/dL (2.2-3.7); Glomerular Filtration Rate 25; Glucose 111 mg/dL (70-105); Lactate Dehydrogenase 438 U/L (94-250); Triglycerides 187 mg/dl (<150); Uric Acid 7.9 mg/dL (2.5-8.0)
[2020-06-02 07:06] LABS: Carbon Dioxide 25 mmol/L (22-30); Phosphorous 2.4 mg/dL (2.7-4.5)
[2020-06-02] MEDS ORDERED: DEXTROSE 5%-NS 1,000 ML IV SCH (08:15)
--- NOTE | 2020-06-02 08:16 | Internal Med Progress Note ---
SUBJECTIVE Subjective Patient information: Note initiated : 06/02/20 at 8:10 am Service Date, if different from initiated Date: [] Patient: Amna Lawrence a 89 y/o F admitted on 05/28/20 for nausea, vomiting, diarrhea, weakness. Chief Complaint: [] Interval history: History of present illness: Ms. Lawrence is a 89 year old F with a history of chronic kidney disease, hypertension, hypercholesterolemia, osteoporosis who presented to the emergency department yesterday with nausea, vomiting, diarrhea and weakness. She was noted to have weakness, been crying, was not able to get around. She was evaluated, received fluids, symptoms were controlled and attempts were made for her to return home. However there were no contact numbers available for family or friends for the patient to return to her apartment (where she lives with her significant other). She stayed in the emergency department overnight. This morning, she seemed to have decreased interactivity. A caregiver was contacted who states that she is quite vibrant at baseline and generally independent. There was concern that this could represent stroke, she underwent stroke protocol, had CT angios of the head and neck. No evidence of stroke or significant blockages were found. However cuts through the left upper lung field revealed evidence of patchy infiltrates consistent with pneumonia. Full details of emergency department course are contained in Dr. Mensah's note. The patient is unable to provide any history. She is alert, mumbling answers at times which I cannot understand, appears to be a little distraught and crying. Cannot point out to any place where she is hurting or express what might be causing her discomfort. She does not appear to be struggling to breathe, there is no accessory muscle use and she is maintaining saturations. Given the patient's pneumonia, alteration in mental status, she is being admitted for treatment with IV antibiotics. Her pneumonia severity index is 109, and her curb65 score is 3. 05/29 Patient remains tearful this morning. Kind of hard to understand. Why do see her she is able to express that she feels cold in the room was cold. Overall better able to communicate than yesterday. Follows instructions when asked her to roll to help examine her lungs. Urinary strep pneumo antigen is positive. Pertinent ROS: Other than complaining of being cold, does not really answer questions. 05/30 Patient seem to answer my simple questions answering yes or no or nodding head. Has no new complaints. I discussed CODE STATUS with her and she nodded no to CPR and intubation but I had a hard time confirming that we would focus on comfort and letting nature take its course and that sort of event. Nursing also reached out to her next of kin, her niece (given that there has been a question of whether the patient is understanding code status), who asked that the patient be DNR. Also, I do feel that in talking with the patient this morning she did appear to understand my code status questions. 05/31 No issues overnight. Follow-up chest x-ray with worsening infiltrates despite diuresis. Still on room air. Difficult to understand her as she does not have her dentures but easier to understand response to simple yes/no questions. 06/01 Nursing had put oxygen on the patient last night. Also per nursing she has not eating or drinking very much. Creatinine elevated today. Will attempt to wean down off oxygen and then follow-up chest x-ray in the morning. IV hydration today and reevaluate renal function tomorrow. She seems to be declining and especially given her underlying COVID diagnosis, concern for prognosis. 06/02 No change. She was on oxygen last night. She is off oxygen this morning but while sitting in bed sounds like her oxygen needs usually is more of an issue when she starts moving around. Chest x-ray showed some increasing bilateral infiltrates today. 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 Review of Systems: Able to thoroughly gather she is more difficult to understand today. Constitutional Vitals: Vital Signs Temp Pulse Resp BP Pulse Ox 98.8 F 68 18 148/68 98 06/02/20 06:53 06/02/20 07:04 06/02/20 07:04 06/02/20 06:53 06/02/20 07:04 Period Temp Pulse Resp BP Sys/Li Pulse Ox Last 24 Hr 97.8 F-98.8 F 60-69 12-18 121-158/59-87 93-98 Intake and Output 06/01/20 06/02/20 06/02/20 21:59 05:59 13:59 Intake Total 150 1000 Output Total 450 Balance 150 550 Weight 66.769 kg Intake & Output: Intake & Output 06/01/20 06/02/20 06/02/20 21:59 05:59 13:59 Intake Total 150 1000 Output Total 450 Balance 150 550 Weight 66.769 kg Intake: IV 1000 Sodium Bicarbonate Vial 150 Meq 1000 In Dextrose 5% in Water 850 ml @ 84 mls/hr IV Q20H [facility] Rx#: [id number] Oral 150 Output: Urine Catheter Amount 450 Other: Meal Dinner Percent of Meal Consumed 10% Feeding Ability Total Assistance Urine Appearance Clear Clear Urine Color Dark Chapis Dark Chapis Urine Odor Normal Stool Size Smear Stool Color Brown Stool Consistency Soft Liquid Exam: General: Awake, No acute Distress Eyes/N/T: EOMI, Head/Neck: neck supple, CV: RRR, 2-3/6 SM Pulm: mild b/l rhonchi/rales, no wheezing Abd: soft, nontender, +BS x4 Ext: no clubbing/cyanosis/edema Neuro: drowsy but awakens, no focal deficits, moves all extremities, Skin: warm/dry OBJ DATA Labs CBC & Chem 7: 06/01/20 05:05 06/02/20 04:29 Labs: Abnormal Lab Results 06/02/20 06/01/20 06/01/20 04:29 12:07 05:05 Hgb Hct Gran % Lymph % (Auto) Lymph # (Auto) Carbon Dioxide 19 L BUN 38 H 36 H Creatinine 1.8 H 2.1 H Glucose 111 H Phosphorus 2.4 L Magnesium AST 53 H 57 H Lactate Dehydrogenase 438 H 473 H NT-Pro-B Natriuret Pep Albumin 3.1 L Albumin/Globulin Ratio 0.9 L 0.9 L Triglycerides 187 H 179 H Urine Protein 100 A Urine Ketones 5/tr A Urine Occult Blood 0.2 A Urine RBC 4 H Urine Bacteria Few A Hyaline Casts 3 H Ur Yeast w Hyphae Few A Urine Yeast (Budding) Few A 05/31/20 05/31/20 05/31/20 10:45 06:19 06:19 Hgb 11.0 L Hct 32.8 L Gran % 82.9 H Lymph % (Auto) 12.7 L Lymph # (Auto) 1.21 L Carbon Dioxide 19 L BUN 28 H Creatinine 1.4 H Glucose Phosphorus Magnesium 1.5 L AST 53 H Lactate Dehydrogenase 464 H NT-Pro-B Natriuret Pep 4994.0 H Albumin 3.1 L Albumin/Globulin Ratio Triglycerides Urine Protein Urine Ketones Urine Occult Blood Urine RBC Urine Bacteria Hyaline Casts Ur Yeast w Hyphae Urine Yeast (Budding) Meds: Medications Acetaminophen (Tylenol) 650 mg PO Q6HP PRN; Protocol PRN Reason: Per Pain Protocol/Fever > 101 Last Admin: 05/30/20 15:34 Dose: 650 mg Documented by: Hydrocodone Bitart/Acetaminophen ([place] 5/325mg) 1 - 2 tab PO Q4H PRN; Protocol PRN Reason: Pain Last Admin: 06/02/20 04:44 Dose: 1 tab Documented by: Cyanocobalamin (Vitamin B-12) 1,000 mcg PO QDAY [facility] Last Admin: 06/01/20 08:53 Dose: 1,000 mcg Documented by: Docusate Sodium (Colace) 100 mg PO BID [facility] Last Admin: 06/01/20 19:58 Dose: Not Given Documented by: Enoxaparin Sodium (Lovenox) 30 mg SQ DAILY [facility] Last Admin: 06/01/20 09:04 Dose: 30 mg Documented by: Famotidine (Pepcid) 20 mg PO BID [facility] Last Admin: 06/01/20 21:34 Dose: Not Given Documented by: Gabapentin (Neurontin) 100 mg PO HS [facility] Last Admin: 06/01/20 21:34 Dose: Not Given Documented by: Hydralazine HCl (Apresoline) 0 mg IV Q2HP PRN PRN Reason: Hypertension Last Admin: 05/30/20 15:32 Dose: 10 mg Documented by: Ceftriaxone Sodium 2 gm/ (Dextrose) 50 mls @ 100 mls/hr IV Q24H [facility] Last Infusion: 06/01/20 09:35 Dose: Infused Documented by: Labetalol HCl (Trandate) 0 mg IV Q2HP PRN PRN Reason: Hypertension Lidocaine (Lidoderm) 1 patch TOPICAL DAILY [facility] Last Admin: 06/01/20 09:05 Dose: 1 patch Documented by: Loperamide HCl (Imodium) 2 mg PO PRN PRN PRN Reason: Diarrhea Last Admin: 05/31/20 12:12 Dose: 2 mg Documented by: Metoprolol Succinate (Toprol Xl) 25 mg PO QDAY [facility] Last Admin: 06/01/20 08:52 Dose: 25 mg Documented by: Ondansetron HCl (Zofran) 4 mg IV Q6HP PRN PRN Reason: Nausea And Vomiting Last Admin: 05/31/20 09:56 Dose: 4 mg Documented by: Paroxetine HCl (Paxil) 10 mg PO DAILY [facility] Last Admin: 06/01/20 08:53 Dose: 10 mg Documented by: Senramírez (Senokot) 2 tab PO HS [facility] Last Admin: 06/01/20 20:10 Dose: Not Given Documented by: Sodium Chloride (Saline Flush) 10 ml IV Q8 [facility] Last Admin: 06/02/20 05:38 Dose: 10 ml Documented by: A/P Assessment and plan (1) Pneumonia: Status: Acute Qualifiers: Laterality: left Lung location: upper lobe of lung Pneumonia type: due to unspecified organism Qualified Code(s): J18.9 - Pneumonia, unspecified organism Narrative A/P Narrative: A: *Pneumonia/COVID(+) & Strep Pneumiae (+): -f/u cxr with increasing b/l infiltrates, diuresis earlier on w/o any improvement -Patient with high curb65 and pneumonia severity index scores -AFebrile o/n -started to require *Acute Hypoxic Resp failure: 2/2 above -on 2L NC *Encephalopathy: Likely 2/2 infectious illness/pneumonia/?underlying cognitive impairment. -improving -Cooperative and able to follow instructions. CT of the head without stroke findings, CTA without significant occlusions. *MARINA on CKD III: ?ATN from contrast but pt not eating/drinking much so could be prerenal -She has hypertensive nephrosclerosis, is followed in nephrology clinic. -likely dehydrated from poor oral intake, GI losses as well prior to admission. received contrast for CT angiography -mildly improved with 1L IVF's *Generalized weakness: 2/2 combination of above *HTN: Has been on losartan/metoprolol/chlorthalidone. Was on amlodipine which was stopped d/t LE edema. 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 I do not see any other mention of that and what notes are available. She is not on replacement steroids. AM cortisol ok. *Depression: on SSRI *Diarrhea: c. diff neg *Hypomag: prn replace *Goals of care: Guarded prognosis given age and covid + status and generalized decline P: Continue Abx -cont monitor resp status -gentle IVF today Hold losartan given renal function changes; hold chlorthalidone while monitoring renal fxn; Continue with beta-duran, Continue to follow renal function, Avoid nephrotoxins, particularly after contrast load -IS/Acapella -pt/ot -f/u cxr -ppx: lovenox DNR Time Spent With Patient Time: Total time spent is greater than 50% in coordination of care (as documented) at patient's floor/unit and/or counseling patient: QUALITY VTE Deep Vein Thrombosis/Pulmonary Embolism Present on Admission: No
--- NOTE | 2020-06-02 08:56 | XRay Report ---
INDICATION: f/u iniltrates TECHNIQUE: AP portable upright chest x-ray COMPARISON: Chest x-rays dated 05/31/2020, 05/30/2020, 05/27/2020 FINDINGS: Lungs:Bilateral pulmonary parenchymal infiltrates. Appearance remains consistent with pneumonia. Infiltrates are slightly worse at the right lung base since 05/31/2020. Infiltrates are new since 05/27/2020 Heart, vascular:No significant cardiomegaly. Pulmonary vascularity is normal. No pulmonary edema or pulmonary congestion Mediastinum, diane:No mediastinal widening. No hilar mass Pleura:No pleural fluid. No pleural-based mass or calcification Skeletal:Negative. IMPRESSION: 1. Bilateral pulmonary parenchymal infiltrates consistent with pneumonia 2. Infiltrates are slightly worse than on 05/31/2020 and new since 05/27/2020 Interpreted and Authenticated by: Akin Merino 06/02/20
[2020-06-02] MEDS: DOCUSATE SODIUM 100 MG CAPSULE PO SCH ×2 (09:08→21:27)
[2020-06-02] MEDS: CYANOCOBALAMIN (VITAMIN B-12) 500 MCG TABLET PO SCH (09:09)
[2020-06-02] MEDS: METOPROLOL SUCCINATE 25 MG TAB.XL.24H PO SCH (09:09)
[2020-06-02] MEDS: LIDOCAINE PATCH TOPICAL SCH (09:12)
[2020-06-02] MEDS: FAMOTIDINE 20 MG TABLET PO SCH ×2 (09:13→21:26)
[2020-06-02] MEDS: PARoxetine 20 MG TABLET PO SCH (09:14)
[2020-06-02] MEDS: ENOXAPARIN 30 MG/0.3 ML SYRINGE SQ SCH (09:15)
[2020-06-02] MEDS: cefTRIAXone 2 GM in DEXTROSE 5% IN WATER 50 ML IV SCH (09:15)
[2020-06-02] MEDS: GABAPENTIN 100 MG CAPSULE PO SCH (21:25)
[2020-06-02] MEDS: SENNOSIDES 1 TABLET PO SCH (21:27)
[2020-06-03] MEDS: HYDROcodone/APAP 5/325MG TABLET PO PRN (01:51)
[2020-06-03] MEDS: 0.9 % SODIUM CHLORIDE 10 ML SYRINGE IV SCH ×2 (05:21→15:17)
--- NOTE | 2020-06-03 07:31 | Internal Med Progress Note ---
SUBJECTIVE Subjective Patient information: Note initiated : 06/03/20 at 7:29 am Service Date, if different from initiated Date: [] Patient: Amna Lawrence a 89 y/o F admitted on 05/28/20 for nausea, vomiting, diarrhea, weakness. Chief Complaint: [] Interval history: History of present illness: Ms. Lawrence is a 89 year old F with a history of chronic kidney disease, hypertension, hypercholesterolemia, osteoporosis who presented to the emergency department yesterday with nausea, vomiting, diarrhea and weakness. She was noted to have weakness, been crying, was not able to get around. She was evaluated, received fluids, symptoms were controlled and attempts were made for her to return home. However there were no contact numbers available for family or friends for the patient to return to her apartment (where she lives with her significant other). She stayed in the emergency department overnight. This morning, she seemed to have decreased interactivity. A caregiver was contacted who states that she is quite vibrant at baseline and generally independent. There was concern that this could represent stroke, she underwent stroke protocol, had CT angios of the head and neck. No evidence of stroke or significant blockages were found. However cuts through the left upper lung field revealed evidence of patchy infiltrates consistent with pneumonia. Full details of emergency department course are contained in Dr. Mensah's note. The patient is unable to provide any history. She is alert, mumbling answers at times which I cannot understand, appears to be a little distraught and crying. Cannot point out to any place where she is hurting or express what might be causing her discomfort. She does not appear to be struggling to breathe, there is no accessory muscle use and she is maintaining saturations. Given the patient's pneumonia, alteration in mental status, she is being admitted for treatment with IV antibiotics. Her pneumonia severity index is 109, and her curb65 score is 3. 05/29 Patient remains tearful this morning. Kind of hard to understand. Why do see her she is able to express that she feels cold in the room was cold. Overall better able to communicate than yesterday. Follows instructions when asked her to roll to help examine her lungs. Urinary strep pneumo antigen is positive. Pertinent ROS: Other than complaining of being cold, does not really answer questions. 05/30 Patient seem to answer my simple questions answering yes or no or nodding head. Has no new complaints. I discussed CODE STATUS with her and she nodded no to CPR and intubation but I had a hard time confirming that we would focus on comfort and letting nature take its course and that sort of event. Nursing also reached out to her next of kin, her niece (given that there has been a question of whether the patient is understanding code status), who asked that the patient be DNR. Also, I do feel that in talking with the patient this morning she did appear to understand my code status questions. 05/31 No issues overnight. Follow-up chest x-ray with worsening infiltrates despite diuresis. Still on room air. Difficult to understand her as she does not have her dentures but easier to understand response to simple yes/no questions. 06/01 Nursing had put oxygen on the patient last night. Also per nursing she has not eating or drinking very much. Creatinine elevated today. Will attempt to wean down off oxygen and then follow-up chest x-ray in the morning. IV hydration today and reevaluate renal function tomorrow. She seems to be declining and especially given her underlying COVID diagnosis, concern for prognosis. 06/02 No change. She was on oxygen last night. She is off oxygen this morning but while sitting in bed sounds like her oxygen needs usually is more of an issue when she starts moving around. Chest x-ray showed some increasing bilateral infiltrates today. [employer] difficult time getting a hold of family sounds like she has a significant other but he does not make decisions for her, she has a niece that is helped us out with coke status. 06/03 Patient quite drowsy today. Not really answering my questions seems to be making some attempt. She is on 1 L of oxygen nasal cannula. Patient not showing any real improvement. Family discussions regarding goals of care and hospice versus comfort care. Review of Systems: Unable to gather as she is minimally verbal and when she is verbal it is unintelligible. Constitutional Vitals: Vital Signs Temp Pulse Resp BP Pulse Ox 98.3 F 72 22 172/79 98 06/03/20 06:59 06/03/20 06:59 06/03/20 07:04 06/03/20 06:59 06/03/20 07:04 Period Temp Pulse Resp BP Sys/Li Pulse Ox Last 24 Hr 97.5 F-98.6 F 58-88 18-22 98-172/51-94 90-98 Intake and Output 06/02/20 06/03/20 06/03/20 21:59 05:59 13:59 Intake Total 1000 Output Total 150 350 Balance -150 650 Weight 65.862 kg Intake & Output: Intake & Output 06/02/20 06/03/20 06/03/20 21:59 05:59 13:59 Intake Total 1000 Output Total 150 350 Balance -150 650 Weight 65.862 kg Intake: IV 1000 Dextrose 5%-Ns IV Solution 1, 1000 000 ml @ 75 mls/hr IV .[id number] [facility] Rx#:[id number] Output: Urine Catheter Amount 150 350 Other: Urine Appearance Clear Clear Urine Color Light Chapis Light Chapis Urine Odor Normal Exam: General: drowsy, No acute Distress Eyes/N/T: EOMI, Head/Neck: neck supple, CV: RRR, 2-3/6 SM Pulm: diminished b/l, mild b/l rhonchi/rales, no wheezing Abd: soft, nontender, +BS x4 Ext: no clubbing/cyanosis/edema Neuro: drowsy but awakens, no focal deficits, moves all extremities, normal verbalization and unable to understand Skin: warm/dry OBJ DATA Labs CBC & Chem 7: 06/01/20 05:05 06/03/20 04:36 Labs: Abnormal Lab Results 06/02/20 06/01/20 06/01/20 04:29 12:07 05:05 Carbon Dioxide 19 L BUN 38 H 36 H Creatinine 1.8 H 2.1 H Glucose 111 H Phosphorus 2.4 L AST 53 H 57 H Lactate Dehydrogenase 438 H 473 H NT-Pro-B Natriuret Pep Albumin 3.1 L Albumin/Globulin Ratio 0.9 L 0.9 L Triglycerides 187 H 179 H Urine Protein 100 A Urine Ketones 5/tr A Urine Occult Blood 0.2 A Urine RBC 4 H Urine Bacteria Few A Hyaline Casts 3 H Ur Yeast w Hyphae Few A Urine Yeast (Budding) Few A 05/31/20 05/31/20 10:45 06:19 Carbon Dioxide 19 L BUN 28 H Creatinine Glucose Phosphorus AST Lactate Dehydrogenase NT-Pro-B Natriuret Pep 4994.0 H Albumin Albumin/Globulin Ratio Triglycerides Urine Protein Urine Ketones Urine Occult Blood Urine RBC Urine Bacteria Hyaline Casts Ur Yeast w Hyphae Urine Yeast (Budding) Meds: Medications Acetaminophen (Tylenol) 650 mg PO Q6HP PRN; Protocol PRN Reason: Per Pain Protocol/Fever > 101 Last Admin: 05/30/20 15:34 Dose: 650 mg Documented by: Hydrocodone Bitart/Acetaminophen ([place] 5/325mg) 1 - 2 tab PO Q4H PRN; Protocol PRN Reason: Pain Last Admin: 06/03/20 01:51 Dose: 1 tab Documented by: Cyanocobalamin (Vitamin B-12) 1,000 mcg PO QDAY [facility] Last Admin: 06/02/20 09:09 Dose: 1,000 mcg Documented by: Docusate Sodium (Colace) 100 mg PO BID [facility] Last Admin: 06/02/20 21:27 Dose: 100 mg Documented by: Enoxaparin Sodium (Lovenox) 30 mg SQ DAILY [facility] Last Admin: 06/02/20 09:15 Dose: 30 mg Documented by: Famotidine (Pepcid) 20 mg PO BID [facility] Last Admin: 06/02/20 21:26 Dose: 20 mg Documented by: Gabapentin (Neurontin) 100 mg PO HS [facility] Last Admin: 06/02/20 21:25 Dose: 100 mg Documented by: Hydralazine HCl (Apresoline) 0 mg IV Q2HP PRN PRN Reason: Hypertension Last Admin: 05/30/20 15:32 Dose: 10 mg Documented by: Ceftriaxone Sodium 2 gm/ (Dextrose) 50 mls @ 100 mls/hr IV Q24H [facility] Last Admin: 06/02/20 09:15 Dose: 100 mls/hr Documented by: Labetalol HCl (Trandate) 0 mg IV Q2HP PRN PRN Reason: Hypertension Lidocaine (Lidoderm) 1 patch TOPICAL DAILY [facility] Last Admin: 06/02/20 09:12 Dose: 1 patch Documented by: Loperamide HCl (Imodium) 2 mg PO PRN PRN PRN Reason: Diarrhea Last Admin: 05/31/20 12:12 Dose: 2 mg Documented by: Metoprolol Succinate (Toprol Xl) 25 mg PO QDAY [facility] Last Admin: 06/02/20 09:09 Dose: 25 mg Documented by: Ondansetron HCl (Zofran) 4 mg IV Q6HP PRN PRN Reason: Nausea And Vomiting Last Admin: 05/31/20 09:56 Dose: 4 mg Documented by: Paroxetine HCl (Paxil) 10 mg PO DAILY [facility] Last Admin: 06/02/20 09:14 Dose: 10 mg Documented by: Angie (Senokot) 2 tab PO HS [facility] Last Admin: 06/02/20 21:27 Dose: 2 tab Documented by: Sodium Chloride (Saline Flush) 10 ml IV Q8 [facility] Last Admin: 06/03/20 05:21 Dose: 10 ml Documented by: A/P Assessment and plan (1) Pneumonia: Status: Acute Qualifiers: Laterality: left Lung location: upper lobe of lung Pneumonia type: due to unspecified organism Qualified Code(s): J18.9 - Pneumonia, unspecified organism Narrative A/P Narrative: A: *Pneumonia/COVID(+) & Strep Pneumiae (+): -f/u cxr with increasing b/l infiltrates, diuresis earlier on w/o any improvement -Patient with high curb65 and pneumonia severity index scores -AFebrile o/n *Acute Hypoxic Resp failure: 2/2 above -on 1L NC *Encephalopathy: Likely 2/2 infectious illness/pneumonia/?underlying cognitive impairment. -improved overall, waxes/wanes -Cooperative and able to follow instructions. CT of the head without stroke findings, CTA without significant occlusions. *MARINA on CKD III: ?ATN from contrast but more likely poor oral intake as pt not eating/drinking much -She has hypertensive nephrosclerosis, is followed in nephrology clinic. -likely dehydrated from poor oral intake, GI losses as well prior to admission. received contrast for CT angiography -mildly improved with 1L IVF's *Generalized weakness: 2/2 combination of above *HTN: Has been on losartan/metoprolol/chlorthalidone. Was on amlodipine which was stopped d/t LE edema. 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 I do not see any other mention of that and what notes are available. She is not on replacement steroids. AM cortisol ok. *Depression: on SSRI *Diarrhea: c. diff neg *Hypomag: prn replace *Goals of care: Guarded prognosis given age and covid + status and generalized decline P: Continue Abx one more day to finish course -cont monitor resp status - Hold losartan given renal function changes; hold chlorthalidone while monitoring renal fxn; Continue with beta-duran, Continue to follow renal function, Avoid nephrotoxins, particularly after contrast load -IS/Acapella -pt/ot -f/u cxr -CM discussion with family, may transition to Hospice vs comfort care here -ppx: lovenox DNR Time Spent With Patient Time: Total time spent is greater than 50% in coordination of care (as documented) at patient's floor/unit and/or counseling patient: QUALITY VTE Deep Vein Thrombosis/Pulmonary Embolism Present on Admission: No
[2020-06-03] MEDS: METOPROLOL SUCCINATE 25 MG TAB.XL.24H PO SCH ×2 (09:29→09:45)
[2020-06-03] MEDS: CYANOCOBALAMIN (VITAMIN B-12) 500 MCG TABLET PO SCH ×2 (09:29→09:45)
[2020-06-03] MEDS: ENOXAPARIN 30 MG/0.3 ML SYRINGE SQ SCH (09:29)
[2020-06-03] MEDS: PARoxetine 20 MG TABLET PO SCH ×2 (09:29→09:45)
[2020-06-03] MEDS: FAMOTIDINE 20 MG TABLET PO SCH ×3 (09:29→20:13)
[2020-06-03] MEDS: cefTRIAXone 2 GM in DEXTROSE 5% IN WATER 50 ML IV SCH (09:29)
[2020-06-03] MEDS: LIDOCAINE PATCH TOPICAL SCH (09:29)
[2020-06-03] MEDS: DOCUSATE SODIUM 100 MG CAPSULE PO SCH ×3 (09:29→20:13)
[2020-06-03 09:47] LABS: Bilirubin,Direct < 0.2 mg/dL (0.0-0.3)
[2020-06-03 09:51] LABS: ALT/SGPT 13 U/l (0-40); AST/SGOT 45 U/l (0-37); Albumin 2.4 gm/dL (3.2-5.2); Albumin/Globulin Ratio 0.8 (1.0-2.3); Alkaline Phosphatase 52 U/L (39-117); Bilirubin,Total 0.4 mg/dL (0.0-1.0); Blood Urea Nitrogen 36 mg/dl (8-23); Calcium 8.6 mg/dl (8.6-10.4); Carbon Dioxide 26 mmol/L (22-30); Chloride 109 mmol/L (96-108); Globulin 2.9 gm/dL (2.2-3.7); Glomerular Filtration Rate 31; Glucose 95 mg/dL (70-105); Lactate Dehydrogenase 413 U/L (94-250); Phosphorous 2.2 mg/dL (2.7-4.5); Triglycerides 124 mg/dl (<150); Uric Acid 8.1 mg/dL (2.5-8.0)
[2020-06-03] MEDS ORDERED: DEXTROSE 5%-1/2NS W/10MEQ KCL 1,000 ML IV SCH (10:15)
[2020-06-03] MEDS: hydrALAZINE 20 MG/ML VIAL IV PRN (15:20)
[2020-06-03] MEDS ORDERED: HYDROmorphone 0.5 MG/0.5 ML SYRINGE ONE (17:53)
[2020-06-03] MEDS: GABAPENTIN 100 MG CAPSULE PO SCH (20:13)
[2020-06-03] MEDS: SENNOSIDES 1 TABLET PO SCH (20:13)
[2020-06-04] MEDS: HYDROmorphone 0.5 MG/0.5 ML SYRINGE IV PRN ×2 (00:12→06:07)
[2020-06-04] MEDS: 0.9 % SODIUM CHLORIDE 10 ML SYRINGE IV SCH ×4 (00:12→21:51)
[2020-06-04 06:13] LABS: Bilirubin,Direct < 0.2 mg/dL (0.0-0.3); Chloride 106 mmol/L (96-108)
[2020-06-04 06:19] LABS: ALT/SGPT 15 U/l (0-40); AST/SGOT 45 U/l (0-37); Albumin 2.5 gm/dL (3.2-5.2); Albumin/Globulin Ratio 0.6 (1.0-2.3); Alkaline Phosphatase 64 U/L (39-117); Bilirubin,Total 0.5 mg/dL (0.0-1.0); Blood Urea Nitrogen 37 mg/dl (8-23); Carbon Dioxide 23 mmol/L (22-30); Globulin 3.9 gm/dL (2.2-3.7); Glomerular Filtration Rate 31; Glucose 125 mg/dL (70-105); Lactate Dehydrogenase 502 U/L (94-250); Phosphorous 2.9 mg/dL (2.7-4.5); Triglycerides 126 mg/dl (<150); Uric Acid 7.9 mg/dL (2.5-8.0)
[2020-06-04] MEDS: cefTRIAXone 2 GM in DEXTROSE 5% IN WATER 50 ML IV SCH (08:23)
[2020-06-04] MEDS: LIDOCAINE PATCH TOPICAL SCH (08:24)
[2020-06-04] MEDS: METOPROLOL SUCCINATE 25 MG TAB.XL.24H PO SCH ×2 (08:25→09:38)
--- NOTE | 2020-06-04 09:06 | XRay Report ---
CLINICAL INFORMATION: f/u infiltrates COMPARISON: 06/02/2020 FINDINGS: Moderate cardiomegaly is unchanged. Mediastinum and pulmonary vessels are normal. Moderate infiltrates in the left mid and both lung bases show moderate improvement and compared to the exam two days ago. No effusions. IMPRESSION: Moderate alveolar Infiltrates in the left mid and both lower lung bell improving since x-ray two days ago ago. Findings compatible with resolving pneumonia or aspiration Interpreted and Authenticated by: Akin Sparks 06/04/20
[2020-06-04] MEDS: DOCUSATE SODIUM 100 MG CAPSULE PO SCH (09:30)
[2020-06-04] MEDS: PARoxetine 20 MG TABLET PO SCH (09:32)
[2020-06-04] MEDS: FAMOTIDINE 20 MG TABLET PO SCH (09:32)
[2020-06-04] MEDS: CYANOCOBALAMIN (VITAMIN B-12) 500 MCG TABLET PO SCH (09:33)
--- NOTE | 2020-06-04 10:23 | Internal Med Progress Note ---
SUBJECTIVE Subjective Patient information: Note initiated : 06/04/20 at 10:19 am Service Date, if different from initiated Date: [] Patient: Amna Lawrence a 89 y/o F admitted on 05/28/20 for nausea, vomiting, diarrhea, weakness. Chief Complaint: [] History of present illness: Ms. Lawrence is a 89 year old F with a history of chronic kidney disease, hypertension, hypercholesterolemia, osteoporosis who p resented to the emergency department yesterday with nausea, vomiting, diarrhea and weakness. She was noted to have weakness, been crying, was not able to get around. She was evaluated, received fluids, symptoms were controlled and attempts were made for her to return home. However there were no contact numbers available for family or friends for the patient to return to her apartment (where she lives with her significant other). She stayed in the emergency department overnight. This morning, she seemed to have decreased interactivity. A caregiver was contacted who states that she is quite vibrant at baseline and generally independent. There was concern that this could represent stroke, she underwent stroke protocol, had CT angios of the head and neck. No evidence of stroke or significant blockages were found. However cuts through the left upper lung field revealed evidence of patchy infiltrates consistent with pneumonia. Full details of emergency department course are contained in Dr. Mensah's note. The patient is unable to provide any history. She is alert, mumbling answers at times which I cannot understand, appears to be a little distraught and crying. Cannot point out to any place where she is hurting or express what might be causing her discomfort. She does not appear to be struggling to breathe, there is no accessory muscle use and she is maintaining saturations. Given the patient's pneumonia, alteration in mental status, she is being admitted for treatment with IV antibiotics. Her pneumonia severity index is 109, and her curb65 score is 3. 05/29 Patient remains tearful this morning. Kind of hard to understand. Why do see her she is able to express that she feels cold in the room was cold. Overall better able to communicate than yesterday. Follows instructions when asked her to roll to help examine her lungs. Urinary strep pneumo antigen is positive. Pertinent ROS: Other than complaining of being cold, does not really answer questions. 05/30 Patient seem to answer my simple questions answering yes or no or nodding head. Has no new complaints. I discussed CODE STATUS with her and she nodded no to CPR and intubation but I had a hard time confirming that we would focus on comfort and letting nature take its course and that sort of event. Nursing also reached out to her next of kin, her niece (given that there has been a question of whether the patient is understanding code status), who asked that the patient be DNR. Also, I do feel that in talking with the patient this morning she did appear to understand my code status questions. 05/31 No issues overnight. Follow-up chest x-ray with worsening infiltrates despite diuresis. Still on room air. Difficult to understand her as she does not have her dentures but easier to understand response to simple yes/no questions. 06/01 Nursing had put oxygen on the patient last night. Also per nursing she has not eating or drinking very much. Creatinine elevated today. Will attempt to wean down off oxygen and then follow-up chest x-ray in the morning. IV hydration today and reevaluate renal function tomorrow. She seems to be declining and especially given her underlying COVID diagnosis, concern for prognosis. 06/02 No change. She was on oxygen last night. She is off oxygen this morning but while sitting in bed sounds like her oxygen needs usually is more of an issue when she starts moving around. Chest x-ray showed some increasing bilateral infiltrates today. 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 06/03 Patient quite drowsy today. Not really answering my questions seems to be making some attempt. She is on 1 L of oxygen nasal cannula. Patient not showing any real improvement. Family discussions regarding goals of care and hospice versus comfort care. 06/04-patient POA/family decided on initiation of comfort care interventions. Patient already refusing oral medications. Start aggressive pain and symptom management for end-of-life care. Constitutional Vitals: Vital Signs Temp Pulse Resp BP Pulse Ox 97.7 F 95 H 12 153/89 92 06/04/20 07:41 06/04/20 04:12 06/04/20 07:41 06/04/20 07:41 06/04/20 07:41 Period Temp Pulse Resp BP Sys/Li Pulse Ox Last 24 Hr 97.7 F-100.7 F 62-99 12-30 97-190/58-97 92-95 Intake and Output 06/03/20 06/04/20 06/04/20 21:59 05:59 13:59 Output Total 550 100 Balance -550 -100 Weight 68.356 kg Exam deferred to minimize discomfort Intake & Output: Intake & Output 06/03/20 06/04/20 06/04/20 21:59 05:59 13:59 Output Total 550 100 Balance -550 -100 Weight 68.356 kg Output: Urine Catheter Amount 550 100 Other: Urine Appearance Clear Urine Color Bright Yellow Urine Odor Normal OBJ DATA Labs CBC & Chem 7: 06/01/20 05:05 06/04/20 05:05 Labs: Abnormal Lab Results 06/04/20 06/03/20 06/02/20 05:05 08:46 04:29 Sodium 146 H Chloride 109 H BUN 37 H 36 H 38 H Creatinine 1.5 H 1.5 H 1.8 H Glucose 125 H 111 H Uric Acid 8.1 H Phosphorus 2.2 L 2.4 L AST 45 H 45 H 53 H Lactate Dehydrogenase 502 H 413 H 438 H Total Protein 5.3 L Albumin 2.5 L 2.4 L 3.1 L Globulin 3.9 H Albumin/Globulin Ratio 0.6 L 0.8 L 0.9 L Triglycerides 187 H Urine Protein Urine Ketones Urine Occult Blood Urine RBC Urine Bacteria Hyaline Casts Ur Yeast w Hyphae Urine Yeast (Budding) 06/01/20 12:07 Sodium Chloride BUN Creatinine Glucose Uric Acid Phosphorus AST Lactate Dehydrogenase Total Protein Albumin Globulin Albumin/Globulin Ratio Triglycerides Urine Protein 100 A Urine Ketones 5/tr A Urine Occult Blood 0.2 A Urine RBC 4 H Urine Bacteria Few A Hyaline Casts 3 H Ur Yeast w Hyphae Few A Urine Yeast (Budding) Few A Meds: Medications Acetaminophen (Tylenol) 650 mg PO Q6HP PRN; Protocol PRN Reason: Per Pain Protocol/Fever > 101 Last Admin: 05/30/20 15:34 Dose: 650 mg Documented by: Hydrocodone Bitart/Acetaminophen ([place] 5/325mg) 1 - 2 tab PO Q4H PRN; Protocol PRN Reason: Pain Last Admin: 06/03/20 01:51 Dose: 1 tab Documented by: Cyanocobalamin (Vitamin B-12) 1,000 mcg PO QDAY [facility] Last Admin: 06/04/20 09:33 Dose: Not Given Documented by: Docusate Sodium (Colace) 100 mg PO BID [facility] Last Admin: 06/04/20 09:30 Dose: Not Given Documented by: Enoxaparin Sodium (Lovenox) 30 mg SQ DAILY [facility] Last Admin: 06/03/20 09:29 Dose: 30 mg Documented by: Famotidine (Pepcid) 20 mg PO BID [facility] Last Admin: 06/04/20 09:32 Dose: Not Given Documented by: Gabapentin (Neurontin) 100 mg PO [facility] Last Admin: 06/03/20 20:13 Dose: Not Given Documented by: Hydralazine HCl (Apresoline) 0 mg IV Q2HP PRN PRN Reason: Hypertension Last Admin: 06/03/20 15:20 Dose: 20 mg Documented by: Hydromorphone HCl (Dilaudid) 0 mg IV Q4HP PRN; Protocol PRN Reason: Per Pain Protocol Last Admin: 06/04/20 06:07 Dose: 0.5 mg Documented by: Ceftriaxone Sodium 2 gm/ (Dextrose) 50 mls @ 100 mls/hr IV Q24H [facility] Last Admin: 06/04/20 08:23 Dose: 100 mls/hr Documented by: Labetalol HCl (Trandate) 0 mg IV Q2HP PRN PRN Reason: Hypertension Lidocaine (Lidoderm) 1 patch TOPICAL DAILY [facility] Last Admin: 06/04/20 08:24 Dose: 1 patch Documented by: Loperamide HCl (Imodium) 2 mg PO PRN PRN PRN Reason: Diarrhea Last Admin: 05/31/20 12:12 Dose: 2 mg Documented by: Metoprolol Succinate (Toprol Xl) 25 mg PO QDAY [facility] Last Admin: 06/04/20 09:38 Dose: Not Given Documented by: Ondansetron HCl (Zofran) 4 mg IV Q6HP PRN PRN Reason: Nausea And Vomiting Last Admin: 05/31/20 09:56 Dose: 4 mg Documented by: Paroxetine HCl (Paxil) 10 mg PO DAILY [facility] Last Admin: 06/04/20 09:32 Dose: Not Given Documented by: Senna (Senokot) 2 tab PO [facility] Last Admin: 06/03/20 20:13 Dose: Not Given Documented by: Sodium Chloride (Saline Flush) 10 ml IV Q8 [facility] Last Admin: 06/04/20 05:37 Dose: Not Given Documented by: A/P Narrative A/P Narrative: * COVID 19 Pneumonia/COVID(+) & Strep Pneumiae (+): -Extremely poor prognosis in the setting of worsening pneumonia/deteriorating status. Family decided on comfort care interventions. DC all existing treatments *Acute Hypoxic Resp failure: 2/2 above-now on end-of-life comfort care measures *Encephalopathy: Likely 2/2 infectious illness/pneumonia/?underlying cognitive impairment. *MARINA on CKD III: ?ATN from contrast but more likely poor oral intake as pt not eating/drinking much -She has hypertensive nephrosclerosis, is followed in nephrology clinic. -likely dehydrated from poor oral intake, GI losses as well prior to admission. received contrast for CT angiography *Generalized weakness: 2/2 combination of above PLAN Initiate end-of-life care/comfort care measures. -DC aggressive treatments Time Spent With Patient Time: Total time spent is greater than 50% in coordination of care (as documented) at patient's floor/unit and/or counseling patient: Total time spent with greater than 50% in coordination of care (as documented) at patient's floor/unit and/or counseling patient:: 25 - 35 minutes QUALITY VTE Deep Vein Thrombosis/Pulmonary Embolism Present on Admission: No
[2020-06-04] MEDS ORDERED: ONDANSETRON 4 MG/2 ML VIAL IV PRN (12:01)
[2020-06-04] MEDS ORDERED: HYDROmorphone 0.5 MG/0.5 ML SYRINGE IV PRN (12:01)
[2020-06-04] MEDS ORDERED: LACTOPEROXI/GLUC OXID/POT THIO 1 EACH GEL..EA. TOPICAL PRN (12:01)
[2020-06-04] MEDS: ENOXAPARIN 30 MG/0.3 ML SYRINGE SQ SCH (12:03)
[2020-06-04] MEDS: LORazepam 2 MG/ML VIAL IV PRN ×2 (12:58→21:46)
[2020-06-04] MEDS: GABAPENTIN 100 MG CAPSULE PO SCH (21:51)
[2020-06-05] MEDS: LORazepam 2 MG/ML VIAL IV PRN ×3 (03:58→14:01)
[2020-06-05] MEDS: 0.9 % SODIUM CHLORIDE 10 ML SYRINGE IV SCH ×3 (05:51→22:00)
--- NOTE | 2020-06-05 14:24 | Internal Med Progress Note ---
SUBJECTIVE Subjective Patient information: Note initiated : 06/05/20 at 2:21 pm Service Date, if different from initiated Date: [] Patient: Amna Lawrence a 89 y/o F admitted on 05/28/20 for nausea, vomiting, diarrhea, weakness. Chief Complaint: [] History of present illness: Ms. Lawrence is a 89 year old F with a history of chronic kidney disease, hypertension, hypercholesterolemia, osteoporosis who p resented to the emergency department yesterday with nausea, vomiting, diarrhea and weakness. She was noted to have weakness, been crying, was not able to get around. She was evaluated, received fluids, symptoms were controlled and attempts were made for her to return home. However there were no contact numbers available for family or friends for the patient to return to her apartment (where she lives with her significant other). She stayed in the emergency department overnight. This morning, she seemed to have decreased interactivity. A caregiver was contacted who states that she is quite vibrant at baseline and generally independent. There was concern that this could represent stroke, she underwent stroke protocol, had CT angios of the head and neck. No evidence of stroke or significant blockages were found. However cuts through the left upper lung field revealed evidence of patchy infiltrates consistent with pneumonia. Full details of emergency department course are contained in Dr. Mensah's note. The patient is unable to provide any history. She is alert, mumbling answers at times which I cannot understand, appears to be a little distraught and crying. Cannot point out to any place where she is hurting or express what might be causing her discomfort. She does not appear to be struggling to breathe, there is no accessory muscle use and she is maintaining saturations. Given the patient's pneumonia, alteration in mental status, she is being admitted for treatment with IV antibiotics. Her pneumonia severity index is 109, and her curb65 score is 3. 05/29 Patient remains tearful this morning. Kind of hard to understand. Why do see her she is able to express that she feels cold in the room was cold. Overall better able to communicate than yesterday. Follows instructions when asked her to roll to help examine her lungs. Urinary strep pneumo antigen is positive. Pertinent ROS: Other than complaining of being cold, does not really answer questions. 05/30 Patient seem to answer my simple questions answering yes or no or nodding head. Has no new complaints. I discussed CODE STATUS with her and she nodded no to CPR and intubation but I had a hard time confirming that we would focus on comfort and letting nature take its course and that sort of event. Nursing also reached out to her next of kin, her niece (given that there has been a question of whether the patient is understanding code status), who asked that the patient be DNR. Also, I do feel that in talking with the patient this morning she did appear to understand my code status questions. 05/31 No issues overnight. Follow-up chest x-ray with worsening infiltrates despite diuresis. Still on room air. Difficult to understand her as she does not have her dentures but easier to understand response to simple yes/no questions. 06/01 Nursing had put oxygen on the patient last night. Also per nursing she has not eating or drinking very much. Creatinine elevated today. Will attempt to wean down off oxygen and then follow-up chest x-ray in the morning. IV hydration today and reevaluate renal function tomorrow. She seems to be declining and especially given her underlying COVID diagnosis, concern for prognosis. 06/02 No change. She was on oxygen last night. She is off oxygen this morning but while sitting in bed sounds like her oxygen needs usually is more of an issue when she starts moving around. Chest x-ray showed some increasing bilateral infiltrates today. 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 06/03 Patient quite drowsy today. Not really answering my questions seems to be making some attempt. She is on 1 L of oxygen nasal cannula. Patient not showing any real improvement. Family discussions regarding goals of care and hospice versus comfort care. 06/04-patient POA/family decided on initiation of comfort care interventions. Patient already refusing oral medications. Start aggressive pain and symptom management for end-of-life care. 06/05-patient continues on comfort care. Sats mid 80s on room air. No active concerns per staff. No family at bedside. Gradual deterioration in overall s tatus. Remains minimally responsive Constitutional Vitals: Vital Signs Temp Pulse Resp BP Pulse Ox 99.6 F H 91 H 10 L 117/66 78 L 06/05/20 07:54 06/05/20 14:12 06/05/20 14:12 06/05/20 07:54 06/05/20 14:12 Period Temp Pulse Resp BP Sys/Li Pulse Ox Last 24 Hr 97.7 F-99.6 F 91-97 07-23 117-156/66-90 78-94 Minimal responsive Physical examination deferred to avoid discomfort Intake & Output: Intake & Output 06/05/20 06/05/20 06/05/20 05:59 13:59 21:59 Other: Urine Appearance Clear Urine Color Light Chapis Urine Odor Normal OBJ DATA Labs CBC & Chem 7: 06/01/20 05:05 06/04/20 05:05 Labs: Abnormal Lab Results 06/04/20 06/03/20 05:05 08:46 Sodium 146 H Chloride 109 H BUN 37 H 36 H Creatinine 1.5 H 1.5 H Glucose 125 H Uric Acid 8.1 H Phosphorus 2.2 L AST 45 H 45 H Lactate Dehydrogenase 502 H 413 H Total Protein 5.3 L Albumin 2.5 L 2.4 L Globulin 3.9 H Albumin/Globulin Ratio 0.6 L 0.8 L Meds: Medications Hydrocodone Bitart/Acetaminophen ([place] 5/325mg) 1 - 2 tab PO Q4H PRN; Protocol PRN Reason: Pain Gabapentin (Neurontin) 100 mg PO HS [facility] Last Admin: 06/04/20 21:51 Dose: Not Given Documented by: Glucose Oxid/Lactoperoxid/Muramidas (Biotene) 1 each TOPICAL PRN PRN PRN Reason: Dry Mouth Hydromorphone HCl (Dilaudid) 0 mg IV Q4HP PRN; Protocol PRN Reason: Per Pain Protocol Lorazepam (Ativan) 0 mg IV Q1HP PRN; Protocol PRN Reason: ANXIETY/SEDATION Last Admin: 06/05/20 14:01 Dose: 1 mg Documented by: Morphine Sulfate (Morphine) 0 mg IV Q1HP PRN PRN Reason: Pain Last Admin: 06/05/20 14:01 Dose: 4 mg Documented by: Ondansetron HCl (Zofran) 4 mg IV Q6HP PRN PRN Reason: Nausea And Vomiting Sodium Chloride (Saline Flush) 10 ml IV Q8 GLENIS Last Admin: 06/05/20 14:01 Dose: 10 ml Documented by: A/P Narrative A/P Narrative: * COVID 19 Pneumonia/COVID(+) & Strep Pneumiae (+): -Gradual clinical deterioration noted. Extremely poor prognosis in the setting of worsening pneumonia/deteriorating status. Continue on comfort care interventions as per family decision. *Acute Hypoxic Resp failure: 2/2 above-continue on end-of-life comfort care measures *Encephalopathy: Likely 2/2 infectious illness/pneumonia/?underlying cognitive impairment. *MARINA on CKD III: ?ATN from contrast but more likely poor oral intake as pt not eating/drinking much -She has hypertensive nephrosclerosis, is followed in nephrology clinic. -likely dehydrated from poor oral intake, GI losses as well prior to admission. received contrast for CT angiography *Generalized weakness: 2/2 combination of above PLAN Continue end-of-life care/comfort care measures. Time Spent With Patient Time: Total time spent is greater than 50% in coordination of care (as documented) at patient's floor/unit and/or counseling patient: QUALITY VTE Deep Vein Thrombosis/Pulmonary Embolism Present on Admission: No
[2020-06-05] MEDS: GABAPENTIN 100 MG CAPSULE PO SCH (20:31)
[2020-06-06] MEDS: LORazepam 2 MG/ML VIAL IV PRN (01:12)
[2020-06-06] MEDS: 0.9 % SODIUM CHLORIDE 10 ML SYRINGE IV SCH ×3 (06:02→23:53)
--- NOTE | 2020-06-06 10:23 | Internal Med Progress Note ---
SUBJECTIVE Subjective Patient information: Note initiated : 06/06/20 at 10:21 am Service Date, if different from initiated Date: [] Patient: Amna Lawrence a 89 y/o F admitted on 05/28/20 for nausea, vomiting, diarrhea, weakness. Chief Complaint: [] History of present illness: Ms. Lawrence is a 89 year old F with a history of chronic kidney disease, hypertension, hypercholesterolemia, osteoporosis who p resented to the emergency department yesterday with nausea, vomiting, diarrhea and weakness. She was noted to have weakness, been crying, was not able to get around. She was evaluated, received fluids, symptoms were controlled and attempts were made for her to return home. However there were no contact numbers available for family or friends for the patient to return to her apartment (where she lives with her significant other). She stayed in the emergency department overnight. This morning, she seemed to have decreased interactivity. A caregiver was contacted who states that she is quite vibrant at baseline and generally independent. There was concern that this could represent stroke, she underwent stroke protocol, had CT angios of the head and neck. No evidence of stroke or significant blockages were found. However cuts through the left upper lung field revealed evidence of patchy infiltrates consistent with pneumonia. Full details of emergency department course are contained in Dr. Mensah's note. The patient is unable to provide any history. She is alert, mumbling answers at times which I cannot understand, appears to be a little distraught and crying. Cannot point out to any place where she is hurting or express what might be causing her discomfort. She does not appear to be struggling to breathe, there is no accessory muscle use and she is maintaining saturations. Given the patient's pneumonia, alteration in mental status, she is being admitted for treatment with IV antibiotics. Her pneumonia severity index is 109, and her curb65 score is 3. 05/29 Patient remains tearful this morning. Kind of hard to understand. Why do see her she is able to express that she feels cold in the room was cold. Overall better able to communicate than yesterday. Follows instructions when asked her to roll to help examine her lungs. Urinary strep pneumo antigen is positive. Pertinent ROS: Other than complaining of being cold, does not really answer questions. 05/30 Patient seem to answer my simple questions answering yes or no or nodding head. Has no new complaints. I discussed CODE STATUS with her and she nodded no to CPR and intubation but I had a hard time confirming that we would focus on comfort and letting nature take its course and that sort of event. Nursing also reached out to her next of kin, her niece (given that there has been a question of whether the patient is understanding code status), who asked that the patient be DNR. Also, I do feel that in talking with the patient this morning she did appear to understand my code status questions. 05/31 No issues overnight. Follow-up chest x-ray with worsening infiltrates despite diuresis. Still on room air. Difficult to understand her as she does not have her dentures but easier to understand response to simple yes/no questions. 06/01 Nursing had put oxygen on the patient last night. Also per nursing she has not eating or drinking very much. Creatinine elevated today. Will attempt to wean down off oxygen and then follow-up chest x-ray in the morning. IV hydration today and reevaluate renal function tomorrow. She seems to be declining and especially given her underlying COVID diagnosis, concern for prognosis. 06/02 No change. She was on oxygen last night. She is off oxygen this morning but while sitting in bed sounds like her oxygen needs usually is more of an issue when she starts moving around. Chest x-ray showed some increasing bilateral infiltrates today. 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 06/03 Patient quite drowsy today. Not really answering my questions seems to be making some attempt. She is on 1 L of oxygen nasal cannula. Patient not showing any real improvement. Family discussions regarding goals of care and hospice versus comfort care. 06/04-patient POA/family decided on initiation of comfort care interventions. Patient already refusing oral medications. Start aggressive pain and symptom management for end-of-life care. 06/05-patient continues on comfort care. Sats mid 80s on room air. No active concerns per staff. No family at bedside. Gradual deterioration in overall s tatus. Remains minimally responsive 06/06-patient currently on comfort intervention. Minimal responsive. On Ativan/morphine as needed. No family bedside. Sats 86% on room air. Constitutional Vitals: Vital Signs Temp Pulse Resp BP Pulse Ox 98.8 F 113 H 24 H 118/60 85 L 06/06/20 07:56 06/06/20 07:56 06/06/20 07:56 06/06/20 07:56 06/06/20 07:56 Period Temp Pulse Resp BP Sys/Li Pulse Ox Last 24 Hr 97.3 F-98.8 F 80-113 10-24 101-118/53-60 78-85 Intake and Output 06/05/20 06/06/20 06/06/20 21:59 05:59 13:59 Output Total 125 Balance -125 Appears comfortable Intake & Output: Intake & Output 06/05/20 06/06/20 06/06/20 21:59 05:59 13:59 Output Total 125 Balance -125 Output: Urine Catheter Amount 125 OBJ DATA Labs CBC & Chem 7: 06/01/20 05:05 06/04/20 05:05 Labs: Abnormal Lab Results 06/04/20 05:05 BUN 37 H Creatinine 1.5 H Glucose 125 H AST 45 H Lactate Dehydrogenase 502 H Albumin 2.5 L Globulin 3.9 H Albumin/Globulin Ratio 0.6 L Meds: Medications Hydrocodone Bitart/Acetaminophen ([place] 5/325mg) 1 - 2 tab PO Q4H PRN; Protocol PRN Reason: Pain Gabapentin (Neurontin) 100 mg PO HS [facility] Last Admin: 06/05/20 20:31 Dose: Not Given Documented by: Glucose Oxid/Lactoperoxid/Muramidas (Biotene) 1 each TOPICAL PRN PRN PRN Reason: Dry Mouth Hydromorphone HCl (Dilaudid) 0 mg IV Q4HP PRN; Protocol PRN Reason: Per Pain Protocol Lorazepam (Ativan) 0 mg IV Q1HP PRN; Protocol PRN Reason: ANXIETY/SEDATION Last Admin: 06/06/20 01:12 Dose: 1 mg Documented by: Morphine Sulfate (Morphine) 0 mg IV Q1HP PRN PRN Reason: Pain Last Admin: 06/06/20 10:16 Dose: 4 mg Documented by: Ondansetron HCl (Zofran) 4 mg IV Q6HP PRN PRN Reason: Nausea And Vomiting Sodium Chloride (Saline Flush) 10 ml IV Q8 GLENIS Last Admin: 09/03/20 06:02 Dose: 10 ml Documented by: A/P Assessment and plan (1) Pneumonia: Status: Acute Qualifiers: Laterality: left Lung location: upper lobe of lung Pneumonia type: due to unspecified organism Qualified Code(s): J18.9 - Pneumonia, unspecified organism Narrative A/P Narrative: * End-of-life comfort care interventions in light of COVID pneumonia advanced age and hypoxia respiratory failure * * COVID 19 Pneumonia/COVID(+) & Strep Pneumiae (+): -Gradual clinical deterioration noted. Extremely poor prognosis in the setting of worsening pneumonia/deteriorating status. Continue on comfort care interventions as per family decision. * *Acute Hypoxic Resp failure: 2/2 above-continue on end-of-life comfort care measures * *Encephalopathy: Likely 2/2 infectious illness/pneumonia/?underlying cognitive impairment. * *MARINA on CKD III: ?ATN from contrast but more likely poor oral intake as pt not eating/drinking much -She has hypertensive nephrosclerosis, is followed in nephrology clinic. -likely dehydrated from poor oral intake, GI losses as well prior to admission. received contrast for CT angiography PLAN Continue end-of-life care/comfort care measures. No new changes Time Spent With Patient Time: Total time spent is greater than 50% in coordination of care (as doc umented) at patient's floor/unit and/or counseling patient: QUALITY VTE Deep Vein Thrombosis/Pulmonary Embolism Present on Admission: No
[2020-06-06] MEDS ORDERED: 0.9 % SODIUM CHLORIDE 1,000 ML IV SCH (17:00)
--- NOTE | 2020-06-06 18:19 | XRay Report ---
CLINICAL INFORMATION: dubhoff placement COMPARISON: None. FINDINGS: Dobbhoff tube is coiled in the gastric fundus. Stool gas pattern unremarkable. No free air or soft tissue mass. Moderate patchy bibasilar infiltrates present in the mid and lower lungs IMPRESSION: No acute abdominal disease. Dobbhoff tube coiled in the gastric fundus. Suggest copious air injection through the tube placing the patient right side and repositioning Interpreted and Authenticated by: Akin Sparks 06/06/20
[2020-06-06 18:50] LABS: Basophils # (Auto) 0.03 K/mcL (0.00-0.30); Basophils % (Auto) 0.4 % (0.0-2.0); Eosinophils # (Auto) 0.12 K/mcL (0.00-0.70); Eosinophils % (Auto) 1.7 % (0.0-7.0); Granulocytes % (Auto) 62.5 % (38.0-78.0); Hematocrit 35.7 % (34.1-44.9); Hemoglobin 11.3 g/dL (11.2-15.7); Lymphocytes # (Auto) 1.56 K/mcL (1.50-4.80); Mean Cell Volume 89.7 fL (80.0-100.0); Mean Corpuscular HGB Conc 31.7 g/dL (31.0-36.0); Mean Platelet Volume 9.1 fL (7.4-10.4); Monocytes # (Auto) 0.95 K/mcL (0.10-0.90); Monocytes % (Auto) 13.4 % (1.0-12.0); Platelet Count 379 K/mcL (140-440); RBC 3.98 M/mcL (3.59-5.38); Red Cell Distribution Width 13.6 % (11.5-14.5); WBC 7.1 K/mcL (4.50-11.00)
[2020-06-06 19:05] LABS: ALT/SGPT 15 U/l (0-40); AST/SGOT 40 U/l (0-37); Albumin 2.7 gm/dL (3.2-5.2); Albumin/Globulin Ratio 0.7 (1.0-2.3); Alkaline Phosphatase 56 U/L (39-117); Bilirubin,Direct < 0.2 mg/dL (0.0-0.3); Bilirubin,Total 0.3 mg/dL (0.0-1.0); Calcium 9.5 mg/dl (8.6-10.4); Carbon Dioxide 23 mmol/L (22-30); Chloride 108 mmol/L (96-108); Globulin 3.8 gm/dL (2.2-3.7); Glucose 85 mg/dL (70-105); Lactate Dehydrogenase 323 U/L (94-250); Triglycerides 147 mg/dl (<150)
[2020-06-06 19:16] LABS: Blood Urea Nitrogen 65 mg/dl (8-23); Glomerular Filtration Rate 13; Phosphorous 6.9 mg/dL (2.7-4.5); Uric Acid 10.7 mg/dL (2.5-8.0)
[2020-06-06] MEDS: PIPERACILLIN SODIUM/TAZOBACTAM 2.25 GM in DEXTROSE 5% IN WATER 50 ML IV SCH ×2 (19:33→23:53)
[2020-06-06] MEDS: GABAPENTIN 100 MG CAPSULE PO SCH (21:05)
--- NOTE | 2020-06-07 04:10 | XRay Report ---
CLINICAL INFORMATION: dubhoff placement COMPARISON: None. FINDINGS: Tip remains in the gastric fundus. Stool gas pattern is unremarkable free air soft tissue mass. IMPRESSION: Dobbhoff tip remains in the gastric fundus. No acute disease Interpreted and Authenticated by: Akin Sparks 06/07/20
[2020-06-07] MEDS: 0.9 % SODIUM CHLORIDE 10 ML SYRINGE IV SCH ×4 (05:50→22:01)
[2020-06-07] MEDS: PIPERACILLIN SODIUM/TAZOBACTAM 2.25 GM in DEXTROSE 5% IN WATER 50 ML IV SCH ×3 (05:50→17:50)
[2020-06-07 06:42] LABS: Basophils # (Auto) 0.05 K/mcL (0.00-0.30); Basophils % (Auto) 0.6 % (0.0-2.0); Eosinophils # (Auto) 0.16 K/mcL (0.00-0.70); Eosinophils % (Auto) 1.9 % (0.0-7.0); Granulocytes % (Auto) 66.8 % (38.0-78.0); Hematocrit 35.9 % (34.1-44.9); Hemoglobin 10.9 g/dL (11.2-15.7); Lymphocytes # (Auto) 1.51 K/mcL (1.50-4.80); Lymphocytes % (Auto) 18.3 % (15.5-49.0); Mean Cell Volume 93.7 fL (80.0-100.0); Mean Corpuscular HGB Conc 30.4 g/dL (31.0-36.0); Mean Platelet Volume 9.3 fL (7.4-10.4); Monocytes # (Auto) 1.02 K/mcL (0.10-0.90); Monocytes % (Auto) 12.4 % (1.0-12.0); Platelet Count 385 K/mcL (140-440); RBC 3.83 M/mcL (3.59-5.38); Red Cell Distribution Width 13.9 % (11.5-14.5); WBC 8.2 K/mcL (4.50-11.00)
[2020-06-07 07:08] LABS: ALT/SGPT 16 U/l (0-40); AST/SGOT 59 U/l (0-37); Albumin 2.1 gm/dL (3.2-5.2); Albumin/Globulin Ratio 0.5 (1.0-2.3); Alkaline Phosphatase 56 U/L (39-117); Bilirubin,Direct < 0.2 mg/dL (0.0-0.3); Bilirubin,Total 0.4 mg/dL (0.0-1.0); Blood Urea Nitrogen 68 mg/dl (8-23); Calcium 9.1 mg/dl (8.6-10.4); Carbon Dioxide 20 mmol/L (22-30); Chloride 110 mmol/L (96-108); Globulin 4.2 gm/dL (2.2-3.7); Glomerular Filtration Rate 13; Glucose 88 mg/dL (70-105); Lactate Dehydrogenase 470 U/L (94-250); Phosphorous 5.5 mg/dL (2.7-4.5); Triglycerides 205 mg/dl (<150); Uric Acid 11.2 mg/dL (2.5-8.0)
--- NOTE | 2020-06-07 10:02 | Internal Med Progress Note ---
SUBJECTIVE Subjective Patient information: Note initiated : 06/07/20 at 9:55 am Service Date, if different from initiated Date: [] Patient: Amna Lawrence a 89 y/o F admitted on 05/28/20 for nausea, vomiting, diarrhea, weakness. Chief Complaint: [] Ms. Lawrence is a 89 year old F with a history of chronic kidney disease, hypertension, hypercholesterolemia, osteoporosis who presented to the emergency department yesterday with nausea, vomiting, diarrhea and weakness. She was noted to have weakness, been crying, was not able to get around. She was evaluated, received fluids, symptoms were controlled and attempts were made for her to return home. However there were no contact numbers available for family or friends for the patient to return to her apartment (where she lives with her significant other). She stayed in the emergency department overnight. This morning, she seemed to have decreased interactivity. A caregiver was contacted who states that she is quite vibrant at baseline and generally independent. There was concern that this could represent stroke, she underwent stroke protocol, had CT angios of the head and neck. No evidence of stroke or significant blockages were found. However cuts through the left upper lung field revealed evidence of patchy infiltrates consistent with pneumonia. Full details of emergency department course are contained in Dr. Mensah's note. The patient is unable to provide any history. She is alert, mumbling answers at times which I cannot understand, appears to be a little distraught and crying. Cannot point out to any place where she is hurting or express what might be causing her discomfort. She does not appear to be struggling to breathe, there is no accessory muscle use and she is maintaining saturations. Given the patient's pneumonia, alteration in mental status, she is being admitted for treatment with IV antibiotics. Her pneumonia severity index is 109, and her curb65 score is 3. 05/29 Patient remains tearful this morning. Kind of hard to understand. Why do see her she is able to express that she feels cold in the room was cold. Overall better able to communicate than yesterday. Follows instructions when asked her to roll to help examine her lungs. Urinary strep pneumo antigen is positive. Pertinent ROS: Other than complaining of being cold, does not really answer questions. 05/30 Patient seem to answer my simple questions answering yes or no or nodding head. Has no new complaints. I discussed CODE STATUS with her and she nodded no to CPR and intubation but I had a hard time confirming that we would focus on comfort and letting nature take its course and that sort of event. Nursing also reached out to her next of kin, her niece (given that there has been a question of whether the patient is understanding code status), who asked that the patient be DNR. Also, I do feel that in talking with the patient this morning she did appear to understand my code status questions. 05/31 No issues overnight. Follow-up chest x-ray with worsening infiltrates despite diuresis. Still on room air. Difficult to understand her as she does not have her dentures but easier to understand response to simple yes/no questions. 06/01 Nursing had put oxygen on the patient last night. Also per nursing she has not eating or drinking very much. Creatinine elevated today. Will attempt to wean down off oxygen and then follow-up chest x-ray in the morning. IV hydration today and reevaluate renal function tomorrow. She seems to be declining and especially given her underlying COVID diagnosis, concern for prognosis. 06/02 No change. She was on oxygen last night. She is off oxygen this morning but while sitting in bed sounds like her oxygen needs usually is more of an issue when she starts moving around. Chest x-ray showed some increasing bilateral infiltrates today. 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 06/03 Patient quite drowsy today. Not really answering my questions seems to be making some attempt. She is on 1 L of oxygen nasal cannula. Patient not showing any real improvement. Family discussions regarding goals of care and hospice versus comfort care. 06/04-patient POA/family decided on initiation of comfort care interventions. Patient already refusing oral medications. Start aggressive pain and symptom management for end-of-life care. 06/05-patient continues on comfort care. Sats mid 80s on room air. No active concerns per staff. No family at bedside. Gradual deterioration in overall status. Remains minimally responsive 3-patient currently on comfort intervention. Minimal responsive. On Ativan/morphine as needed. No family bedside. Sats 86% on room air. Nursing staff informed about patient's niece Sonia would like to initiate tube feeding/hydration and treatment of pneumonia and discontinue comfort care interventions. I called the niece and had an extended conversation on phone wherein she expressed her concerns about patient status quo over the last 48 hours and she expressed her desire to discontinue comfort intervention and initiate full medical intervention during antibiotics/fluids. She also expressed desire to discontinue sedating/opioids to keep patient awake. Subsequently comfort care orders were discontinued, Patient started on Zosyn ,IV fluids at 50 an hour,Dobbhoff tube feeding,Discontinue opioids/sedatives 06/07-patient continues to remain unresponsive. White count 8.2, sodium 146, creatinine 3 BUN 68 secondary to volume depletion. Continue free water replacement/gentle hydration. Patient remains a poor prognosis overall. Further goals of care discussions today Constitutional Vitals: Vital Signs Temp Pulse Resp BP Pulse Ox 97.4 F 88 12 128/73 100 06/07/20 06:51 06/07/20 06:51 06/07/20 07:17 06/07/20 06:51 06/07/20 07:17 Period Temp Pulse Resp BP Sys/Li Pulse Ox Last 24 Hr 96.0 F-97.4 F 85-88 12-16 104-128/71-73 87-100 Intake and Output 06/06/20 06/07/20 06/07/20 21:59 05:59 13:59 Intake Total 50 50 80 Output Total 125 100 Balance -75 -50 80 Weight 67.268 kg Poorly responsive. Nonlabored breathing Intake & Output: Intake & Output 06/06/20 06/07/20 06/07/20 21:59 05:59 13:59 Intake Total 50 50 80 Output Total 125 100 Balance -75 -50 80 Weight 67.268 kg Intake: IV 50 50 50 Zosyn 2.25 gm In Dextrose 5% in 50 50 50 Water 50 ml @ 100 mls/hr IV Q6H [facility] Rx#:[id number] Tube Feeding 0 0 GI Tube Flush 30 Output: Urine Catheter Amount 125 100 Other: Urine Appearance Clear Uretheral (Cristobal) Sediment Urine Color Dark Yellow Bright Yellow Uretheral (Cristobal) Dark Yellow Dark Yellow OBJ DATA Labs CBC & Chem 7: 06/07/20 05:00 06/07/20 05:00 Labs: Abnormal Lab Results 06/07/20 06/07/20 06/06/20 05:00 05:00 18:11 Hgb 10.9 L MCHC 30.4 L [place] % (Auto) 12.4 H [place] # (Auto) 1.02 H Sodium 146 H 147 H Chloride 110 H Carbon Dioxide 20 L BUN 68 H 65 H Creatinine 3.0 H 3.0 H Uric Acid 11.2 H 10.7 H Phosphorus 5.5 H 6.9 H* Magnesium 2.6 H AST 59 H 40 H Lactate Dehydrogenase 470 H 323 H Albumin 2.1 L 2.7 L Globulin 4.2 H 3.8 H Albumin/Globulin Ratio 0.5 L 0.7 L Triglycerides 205 H 06/06/20 18:11 Hgb MCHC [place] % (Auto) 13.4 H [place] # (Auto) 0.95 H Sodium Chloride Carbon Dioxide BUN Creatinine Uric Acid Phosphorus Magnesium AST Lactate Dehydrogenase Albumin Globulin Albumin/Globulin Ratio Triglycerides Meds: Medications Hydrocodone Bitart/Acetaminophen ([place] 5/325mg) 1 - 2 tab PO Q4H PRN; Protocol PRN Reason: Pain Gabapentin (Neurontin) 100 mg PO HS [facility] Last Admin: 06/06/20 21:05 Dose: Not Given Documented by: Glucose Oxid/Lactoperoxid/Muramidas (Biotene) 1 each TOPICAL PRN PRN PRN Reason: Dry Mouth Piperacillin Sod/Tazobactam (Sod 2.25 gm/ Dextrose) 50 mls @ 100 mls/hr IV Q6H [facility]; Protocol Last Infusion: 06/07/20 06:28 Dose: Infused Documented by: Sodium Chloride (Sodium Chloride 0.9%) 1,000 mls @ 50 mls/hr IV .Q20H [facility] Last Admin: 06/06/20 17:10 Dose: 50 mls/hr Documented by: Ondansetron HCl (Zofran) 4 mg IV Q6HP PRN PRN Reason: Nausea And Vomiting Sodium Chloride (Saline Flush) 10 ml IV Q8 [facility] Last Admin: 06/07/20 07:00 Dose: 10 ml Documented by: A/P Narrative A/P Narrative: * * COVID 19 Pneumonia/COVID(+) & Strep Pneumiae (+): -Gradual clinical deterioration noted. Extremely poor prognosis in the setting of worsening pneumonia/deteriorating status. Per family recommendations patient started back on antibiotic coverage. * Hyponatremia secondary to free water deficit-D5 quarter normal saline for 2 L * *Acute Hypoxic Resp failure: 2/2 above-overall improvement noted now on 1 L oxygen. * *Encephalopathy: Likely 2/2 infectious illness/pneumonia/?underlying cognitive impairment. * *MARINA on CKD III: ?ATN from contrast but more likely poor oral intake as pt not eating/drinking much. Continue gentle hydration. Creatinine at 3. -She has hypertensive nephrosclerosis, is followed in nephrology clinic. -likely dehydrated from poor oral intake, GI losses as well prior to admission. received contrast for CT angiography PLAN * Continue antibiotic/Freewater replacement * Goals of care discussions with family in light of overall poor prognosis * COVID precautions Time Spent With Patient Time: Total time spent is greater than 50% in coordination of care (as documented) at patient's floor/unit and/or counseling patient: QUALITY VTE Deep Vein Thrombosis/Pulmonary Embolism Present on Admission: No
[2020-06-07] MEDS: DEXTROSE 5%-1/4NS 1,000 ML IV SCH (10:38)
--- NOTE | 2020-06-07 11:09 | XRay Report ---
CLINICAL INFORMATION: dubbhoff placement COMPARISON: 06/06/2020 FINDINGS: Dobbhoff tip overlies the gastric body. Stool gas pattern is normal - no free air or soft tissue mass. Moderate patchy infiltrates throughout both lungs seen as before IMPRESSION: Dobbhoff tube is malpositioned in the gastric body. Please order fluoroscopic guided placement of the Dobbhoff tube in our department. No acute abdominal disease Interpreted and Authenticated by: Akin Sparks 06/07/20
--- NOTE | 2020-06-07 13:03 | Internal Med Progress Note ---
SUBJECTIVE Subjective Patient information: Note initiated : 06/07/20 at 1:01 pm Service Date, if different from initiated Date: [] Patient: Amna Lawrence a 89 y/o F admitted on 05/28/20 for nausea, vomiting, diarrhea, weakness. Chief Complaint: [] Interval history: Ms. Lawrence is a 89 year old F with a history of chronic kidney disease, hypertension, hypercholesterolemia, osteoporosis who presented to the emergency department yesterday with nausea, vomiting, diarrhea and weakness. She was noted to have weakness, been crying, was not able to get around. She was evaluated, received fluids, symptoms were controlled and attempts were made for her to return home. However there were no contact numbers available for family or friends for the patient to return to her apartment (where she lives with her significant other). She stayed in the emergency department overnight. This morning, she seemed to have decreased interactivity. A caregiver was contacted who states that she is quite vibrant at baseline and generally independent. There was concern that this could represent stroke, she underwent stroke protocol, had CT angios of the head and neck. No evidence of stroke or significant blockages were found. However cuts through the left upper lung field revealed evidence of patchy infiltrates consistent with pneumonia. Full details of emergency department course are contained in Dr. Mensah's note. The patient is unable to provide any history. She is alert, mumbling answers at times which I cannot understand, appears to be a little distraught and crying. Cannot point out to any place where she is hurting or express what might be causing her discomfort. She does not appear to be struggling to breathe, there is no accessory muscle use and she is maintaining saturations. Given the patient's pneumonia, alteration in mental status, she is being admitted for treatment with IV antibiotics. Her pneumonia severity index is 109, and her curb65 score is 3. 05/29 Patient remains tearful this morning. Kind of hard to understand. Why do see her she is able to express that she feels cold in the room was cold. Overall better able to communicate than yesterday. Follows instructions when asked her to roll to help examine her lungs. Urinary strep pneumo antigen is positive. Pertinent ROS: Other than complaining of being cold, does not really answer questions. 05/30 Patient seem to answer my simple questions answering yes or no or nodding head. Has no new complaints. I discussed CODE STATUS with her and she nodded no to CPR and intubation but I had a hard time confirming that we would focus on comfort and letting nature take its course and that sort of event. Nursing also reached out to her next of kin, her niece (given that there has been a question of whether the patient is understanding code status), who asked that the patient be DNR. Also, I do feel that in talking with the patient this morning she did appear to understand my code status questions. 05/31 No issues overnight. Follow-up chest x-ray with worsening infiltrates despite diuresis. Still on room air. Difficult to understand her as she does not have her dentures but easier to understand response to simple yes/no questions. 06/01 Nursing had put oxygen on the patient last night. Also per nursing she has not eating or drinking very much. Creatinine elevated today. Will attempt to wean down off oxygen and then follow-up chest x-ray in the morning. IV hydration today and reevaluate renal function tomorrow. She seems to be declining and especially given her underlying COVID diagnosis, concern for prognosis. 06/02 No change. She was on oxygen last night. She is off oxygen this morning but while sitting in bed sounds like her oxygen needs usually is more of an issue when she starts moving around. Chest x-ray showed some increasing bilateral infiltrates today. digital community managernews operations manager difficult time getting a hold of family sounds like she has a significant other but he does not make decisions for her, she has a niece that is helped us out with coke status. 06/03 Patient quite drowsy today. Not really answering my questions seems to be making some attempt. She is on 1 L of oxygen nasal cannula. Patient not showing any real improvement. Family discussions regarding goals of care and hospice versus comfort care. 06/04-patient POA/family decided on initiation of comfort care interventions. Patient already refusing oral medications. Start aggressive pain and symptom management for end-of-life care. 06/05-patient continues on comfort care. Sats mid 80s on room air. No active concerns per staff. No family at bedside. Gradual deterioration in overall status. Remains minimally responsive 06/06-patient currently on comfort intervention. Minimal responsive. On Ativan/morphine as needed. No family bedside. Sats 86% on room air. Nursing staff informed about patient's niece Sonia would like to initiate tube feeding/hydration and treatment of pneumonia and discontinue comfort care interventions. I called the niece and had an extended conversation on phone wherein she expressed her concerns about patient status quo over the last 48 hours and she expressed her desire to discontinue comfort intervention and initiate full medical intervention during antibiotics/fluids. She also expressed desire to discontinue sedating/opioids to keep patient awake. Subsequently comfort care orders were discontinued, Patient started on Zosyn ,IV fluids at 50 an hour,Dobbhoff tube feeding,Discontinue opioids/sedatives 06/07-patient continues to remain unresponsive. White count 8.2, sodium 146, creatinine 3 BUN 68 secondary to volume depletion. Continue free water replacement/gentle hydration. Patient remains a poor prognosis overall. Further goals of care discussions today 06/08 Constitutional Vitals: Vital Signs Temp Pulse Resp BP Pulse Ox 97.4 F 88 12 128/73 100 06/07/20 06:51 06/07/20 06:51 06/07/20 07:17 06/07/20 06:51 06/07/20 07:17 Period Temp Pulse Resp BP Sys/Li Pulse Ox Last 24 Hr 96.0 F-97.4 F 85-88 12-16 104-128/71-73 87-100 Intake and Output 06/06/20 06/07/20 06/07/20 21:59 05:59 13:59 Intake Total 50 50 953 Output Total 125 100 Balance -75 -50 953 Weight 67.268 kg Intake & Output: Intake & Output 06/06/20 06/07/20 06/07/20 21:59 05:59 13:59 Intake Total 50 50 953 Output Total 125 100 Balance -75 -50 953 Weight 67.268 kg Intake: IV 50 50 923 Sodium Chloride 0.9% 1,000 ml @ 873 50 mls/hr IV .Q20H [facility] Rx#: [id number] Zosyn 2.25 gm In Dextrose 5% in 50 50 50 Water 50 ml @ 100 mls/hr IV Q6H [facility] Rx#:[id number] Tube Feeding 0 0 GI Tube Flush 30 Output: Urine Catheter Amount 125 100 Other: Urine Appearance Clear Uretheral ([place]obal) Sediment Urine Color Dark Yellow Bright Yellow Uretheral ([place]obal) Dark Yellow Dark Yellow Exam: General: drowsy, No acute Distress Eyes/N/T: EOMI, Head/Neck: neck supple, CV: RRR, 2-3/6 SM Pulm: diminished b/l, mild b/l rhonchi/rales, no wheezing Abd: soft, nontender, +BS x4 Ext: no clubbing/cyanosis/edema Neuro: drowsy but awakens, no focal deficits, moves all extremities, normal verbalization and unable to understand Skin: warm/dry OBJ DATA Labs CBC & Chem 7: 06/07/20 05:00 06/07/20 05:00 Labs: Abnormal Lab Results 06/07/20 06/07/20 06/06/20 05:00 05:00 18:11 Hgb 10.9 L MCHC 30.4 L [place] % (Auto) 12.4 H [place] # (Auto) 1.02 H Sodium 146 H 147 H Chloride 110 H Carbon Dioxide 20 L BUN 68 H 65 H Creatinine 3.0 H 3.0 H Uric Acid 11.2 H 10.7 H Phosphorus 5.5 H 6.9 H* Magnesium 2.6 H AST 59 H 40 H Lactate Dehydrogenase 470 H 323 H Albumin 2.1 L 2.7 L Globulin 4.2 H 3.8 H Albumin/Globulin Ratio 0.5 L 0.7 L Triglycerides 205 H 06/06/20 18:11 Hgb MCHC [place] % (Auto) 13.4 H [place] # (Auto) 0.95 H Sodium Chloride Carbon Dioxide BUN Creatinine Uric Acid Phosphorus Magnesium AST Lactate Dehydrogenase Albumin Globulin Albumin/Globulin Ratio Triglycerides Meds: Medications Hydrocodone Bitart/Acetaminophen ([place] 5/325mg) 1 - 2 tab PO Q4H PRN; Protocol PRN Reason: Pain Gabapentin (Neurontin) 100 mg PO HS [facility] Last Admin: 06/06/20 21:05 Dose: Not Given Documented by: Glucose Oxid/Lactoperoxid/Muramidas (Biotene) 1 each TOPICAL PRN PRN PRN Reason: Dry Mouth Piperacillin Sod/Tazobactam (Sod 2.25 gm/ Dextrose) 50 mls @ 100 mls/hr IV Q6H [facility]; Protocol Last Admin: 06/07/20 12:40 Dose: 100 mls/hr Documented by: Dextrose/Sodium Chloride (Dextrose 5%-Sod Chloride 0.2%) 1,000 mls @ 50 mls/hr IV .Q20H [facility] Last Admin: 06/07/20 10:38 Dose: 50 mls/hr Documented by: Ondansetron HCl (Zofran) 4 mg IV Q6HP PRN PRN Reason: Nausea And Vomiting Sodium Chloride (Saline Flush) 10 ml IV Q8 [facility] Last Admin: 06/07/20 07:00 Dose: 10 ml Documented by: A/P Narrative A/P Narrative: A: *Pneumonia/COVID(+) & Strep Pneumiae (+): -Gradual clinical deterioration noted. Extremely poor prognosis in the setting of worsening pneumonia/deteriorating status. Per family recommendations patient started back on antibiotic coverage. *Acute Hypoxic Resp failure: 2/2 above -on 1L NC *Encephalopathy: Likely 2/2 infectious illness/pneumonia/?underlying cognitive impairment. - *MARINA on CKD III: ?ATN from contrast but more likely poor oral intake as pt not eating/drinking much -She has hypertensive nephrosclerosis, is followed in nephrology clinic. -likely dehydrated from poor oral intake, GI losses as well prior to admission. received contrast for CT angiography -mildly improved with 1L IVF's *Hypernatremia secondary to free water deficit -pt not taking orally *Generalized weakness: 2/2 combination of above *HTN: Has been on losartan/metoprolol/chlorthalidone. Was on amlodipine which was stopped d/t LE edema. 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 I do not see any other mention of that and what notes are available. She is not on replacement steroids. AM cortisol ok. *Depression: on SSRI *Diarrhea: c. diff neg *Hypomag: prn replace *Goals of care: Guarded prognosis given age and covid + status and generalized decline P: -Goals of care discussions with family in light of overall poor prognosis d/c Abx, finished course -cont monitor resp status -hypotonic IVF's, Hold losartan given renal function changes; hold chlorthalidone while monitoring renal fxn; Continue with beta-duran, Continue to follow renal function, Avoid nephrotoxins, particularly after contrast load -IS/Acapella -pt/ot -f/u cxr -TF's doe dietary -ppx: lovenox DNR Time Spent With Patient Time: Total time spent is greater than 50% in coordination of care (as documented) at patient's floor/unit and/or counseling patient: QUALITY VTE Deep Vein Thrombosis/Pulmonary Embolism Present on Admission: No
--- NOTE | 2020-06-07 14:24 | XRay Report ---
CLINICAL INFORMATION: Dobbhoff placement COMPARISON: 06/04/2020. FINDINGS: Dobbhoff tube is seen extending along the expected location the nasopharynx esophagus extending off the edge of the film to the gastric cardia. The heart is mildly enlarged stable. Mediastinum and pulmonary vessels are normal. Moderate patchy infiltrates in the left mid and lower lungs are unchanged. No effusion IMPRESSION: Moderate patchy infiltrate in the left mid and both lower lungs unchanged. Dobbhoff tube is straight within its course over the pharynx and esophagus. Interpreted and Authenticated by: Akin Sparks 06/07/20
--- NOTE | 2020-06-07 16:38 | XRay Report ---
CLINICAL INFORMATION: confirm tube placement COMPARISON: None. FINDINGS: After advancing the Dobbhoff tube, the tip overlies the gastric pylorus. The bowel gas pattern is normal. No free air. Moderate patchy infiltrates seen in the left mid lung bases which is unchanged IMPRESSION: Dobbhoff tube overlies the gastric pylorus with the tip likely within the duodenal bulb. This should be adequate for feeding. Interpreted and Authenticated by: Akin Sparks 06/07/20
[2020-06-07] MEDS: GABAPENTIN 100 MG CAPSULE PO SCH (21:07)
[2020-06-08] MEDS: 0.9 % SODIUM CHLORIDE 10 ML SYRINGE IV SCH ×4 (03:59→20:40)
[2020-06-08] MEDS: PIPERACILLIN SODIUM/TAZOBACTAM 2.25 GM in DEXTROSE 5% IN WATER 50 ML IV SCH ×4 (06:00→18:07)
[2020-06-08] MEDS: DEXTROSE 5%-1/4NS 1,000 ML IV SCH ×2 (06:01→13:00)
[2020-06-08] MEDS: HYDROcodone/APAP 5/325MG TABLET PO PRN ×4 (07:36→20:23)
--- NOTE | 2020-06-08 08:21 | Internal Med Progress Note ---
SUBJECTIVE Subjective Patient information: Note initiated : 06/08/20 at 8:16 am Service Date, if different from initiated Date: [] Patient: Amna Lawrence a 89 y/o F admitted on 05/28/20 for nausea, vomiting, diarrhea, weakness. Chief Complaint: [] Interval history: Ms. Lawrence is a 89 year old F with a history of chronic kidney disease, hypertension, hypercholesterolemia, osteoporosis who presented to the emergency department yesterday with nausea, vomiting, diarrhea and weakness. She was noted to have weakness, been crying, was not able to get around. She was evaluated, received fluids, symptoms were controlled and attempts were made for her to return home. However there were no contact numbers available for family or friends for the patient to return to her apartment (where she lives with her significant other). She stayed in the emergency department overnight. This morning, she seemed to have decreased interactivity. A caregiver was contacted who states that she is quite vibrant at baseline and generally independent. There was concern that this could represent stroke, she underwent stroke protocol, had CT angios of the head and neck. No evidence of stroke or significant blockages were found. However cuts through the left upper lung field revealed evidence of patchy infiltrates consistent with pneumonia. Full details of emergency department course are contained in Dr. Mensah's note. The patient is unable to provide any history. She is alert, mumbling answers at times which I cannot understand, appears to be a little distraught and crying. Cannot point out to any place where she is hurting or express what might be causing her discomfort. She does not appear to be struggling to breathe, there is no accessory muscle use and she is maintaining saturations. Given the patient's pneumonia, alteration in mental status, she is being admitted for treatment with IV antibiotics. Her pneumonia severity index is 109, and her curb65 score is 3. 05/29 Patient remains tearful this morning. Kind of hard to understand. Why do see her she is able to express that she feels cold in the room was cold. Overall better able to communicate than yesterday. Follows instructions when asked her to roll to help examine her lungs. Urinary strep pneumo antigen is positive. Pertinent ROS: Other than complaining of being cold, does not really answer questions. 05/30 Patient seem to answer my simple questions answering yes or no or nodding head. Has no new complaints. I discussed CODE STATUS with her and she nodded no to CPR and intubation but I had a hard time confirming that we would focus on comfort and letting nature take its course and that sort of event. Nursing also reached out to her next of kin, her niece (given that there has been a question of whether the patient is understanding code status), who asked that the patient be DNR. Also, I do feel that in talking with the patient this morning she did appear to understand my code status questions. 05/31 No issues overnight. Follow-up chest x-ray with worsening infiltrates despite diuresis. Still on room air. Difficult to understand her as she does not have her dentures but easier to understand response to simple yes/no questions. 06/01 Nursing had put oxygen on the patient last night. Also per nursing she has not eating or drinking very much. Creatinine elevated today. Will attempt to wean down off oxygen and then follow-up chest x-ray in the morning. IV hydration today and reevaluate renal function tomorrow. She seems to be declining and especially given her underlying COVID diagnosis, concern for prognosis. 06/02 No change. She was on oxygen last night. She is off oxygen this morning but while sitting in bed sounds like her oxygen needs usually is more of an issue when she starts moving around. Chest x-ray showed some increasing bilateral infiltrates today. 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 06/03 Patient quite drowsy today. Not really answering my questions seems to be making some attempt. She is on 1 L of oxygen nasal cannula. Patient not showing any real improvement. Family discussions regarding goals of care and hospice versus comfort care. 06/04-patient POA/family decided on initiation of comfort care interventions. Patient already refusing oral medications. Start aggressive pain and symptom management for end-of-life care. 06/05-patient continues on comfort care. Sats mid 80s on room air. No active concerns per staff. No family at bedside. Gradual deterioration in overall status. Remains minimally responsive 06/06-patient currently on comfort intervention. Minimal responsive. On Ativan/morphine as needed. No family bedside. Sats 86% on room air. Nursing staff informed about patient's niece Sonia would like to initiate tube feeding/hydration and treatment of pneumonia and discontinue comfort care interventions. I called the niece and had an extended conversation on phone wherein she expressed her concerns about patient status quo over the last 48 hours and she expressed her desire to discontinue comfort intervention and initiate full medical intervention during antibiotics/fluids. She also expressed desire to discontinue sedating/opioids to keep patient awake. Subsequently comfort care orders were discontinued, Patient started on Zosyn ,IV fluids at 50 an hour,Dobbhoff tube feeding,Discontinue opioids/sedatives 06/07-patient continues to remain unresponsive. White count 8.2, sodium 146, creatinine 3 BUN 68 secondary to volume depletion. Continue free water replacement/gentle hydration. Patient remains a poor prognosis overall. Further goals of care discussions today 06/08 Tube feeds continue. Patient verbally unresponsive. She will moan to dental sternal rub. Unable to obtain review of system given nonverbal status. Constitutional Vitals: Vital Signs Temp Pulse Resp BP Pulse Ox 97.4 F 86 20 168/100 96 06/08/20 07:51 06/07/20 20:00 06/08/20 07:51 06/08/20 07:51 06/08/20 07:51 Period Temp Pulse Resp BP Sys/Li Pulse Ox Last 24 Hr 97.4 F-97.6 F 86 14-20 121-168/73-100 96-99 Intake and Output 06/07/20 06/08/20 06/08/20 21:59 05:59 13:59 Intake Total 95 252 205 Output Total 300 475 Balance - - 205 Intake & Output: Intake & Output 06/07/20 06/08/20 06/08/20 21:59 05:59 13:59 Intake Total 95 252 205 Output Total 300 475 Balance - -223 205 Intake: IV 50 50 50 Zosyn 2.25 gm In Dextrose 5% in 50 50 50 Water 50 ml @ 100 mls/hr IV Q6H [facility] Rx#:[id number] Oral 0 Tube Feeding 15 112 105 GI Tube Flush 30 90 50 Output: Urine Catheter Amount 300 475 Other: Urine Appearance Clear Sediment Uretheral (Cristobal) Sediment Mucous Threads Urine Color Bright Yellow Dark Yellow Uretheral (Cristobal) Bright Yellow Urine Odor Normal Normal Uretheral (Cristobal) Normal Exam: General: somnolent, No acute Distress Eyes/N/T: PERRL Head/Neck: neck supple, CV: RRR, 2-3/6 SM Pulm: diminished b/l, no wheezing Abd: soft, nontender, +BS x4 Ext: no clubbing/cyanosis/edema Neuro: somnolent, moans to gentle sternal rub, does not verbalize or follow commands Skin: warm/dry OBJ DATA Labs CBC & Chem 7: 06/07/20 05:00 06/07/20 05:00 Labs: Abnormal Lab Results 06/07/20 06/07/20 06/06/20 05:00 05:00 18:11 Hgb 10.9 L MCHC 30.4 L [place] % (Auto) 12.4 H [place] # (Auto) 1.02 H Sodium 146 H 147 H Chloride 110 H Carbon Dioxide 20 L BUN 68 H 65 H Creatinine 3.0 H 3.0 H Uric Acid 11.2 H 10.7 H Phosphorus 5.5 H 6.9 H* Magnesium 2.6 H AST 59 H 40 H Lactate Dehydrogenase 470 H 323 H Albumin 2.1 L 2.7 L Globulin 4.2 H 3.8 H Albumin/Globulin Ratio 0.5 L 0.7 L Triglycerides 205 H 06/06/20 18:11 Hgb MCHC [place] % (Auto) 13.4 H [place] # (Auto) 0.95 H Sodium Chloride Carbon Dioxide BUN Creatinine Uric Acid Phosphorus Magnesium AST Lactate Dehydrogenase Albumin Globulin Albumin/Globulin Ratio Triglycerides Meds: Medications Hydrocodone Bitart/Acetaminophen ([place] 5/325mg) 1 - 2 tab PO Q4H PRN; Protocol PRN Reason: Pain Last Admin: 06/08/20 07:36 Dose: 1 tab Documented by: Gabapentin (Neurontin) 100 mg PO HS GLENIS Last Admin: 06/07/20 21:07 Dose: Not Given Documented by: Glucose Oxid/Lactoperoxid/Muramidas (Biotene) 1 each TOPICAL PRN PRN PRN Reason: Dry Mouth Piperacillin Sod/Tazobactam (Sod 2.25 gm/ Dextrose) 50 mls @ 100 mls/hr IV Q6H [facility]; Protocol Last Infusion: 06/08/20 06:30 Dose: Infused Documented by: Dextrose/Sodium Chloride (Dextrose 5%-Sod Chloride 0.2%) 1,000 mls @ 50 mls/hr IV .Q20H [facility] Last Admin: 06/08/20 06:01 Dose: Not Given Documented by: Ondansetron HCl (Zofran) 4 mg IV Q6HP PRN PRN Reason: Nausea And Vomiting Sodium Chloride (Saline Flush) 10 ml IV Q8 [facility] Last Admin: 06/08/20 07:57 Dose: 10 ml Documented by: A/P Assessment and plan (1) Pneumonia: Status: Acute Qualifiers: Laterality: left Lung location: upper lobe of lung Pneumonia type: due to unspecified organism Qualified Code(s): J18.9 - Pneumonia, unspecified organism Narrative A/P Narrative: A: *Pneumonia/COVID(+) & Strep Pneumiae (+): -Gradual clinical deterioration noted. Extremely poor prognosis in the setting of worsening pneumonia/deteriorating status. Per family recommendations patient started back on antibiotic coverage. *Acute Hypoxic Resp failure: 2/2 above -on 1L NC *Encephalopathy: Likely 2/2 infectious illness/pneumonia/?underlying cognitive impairment. - *MARINA on CKD III: ?ATN from contrast but more likely poor oral intake as pt not eating/drinking much -She has hypertensive nephrosclerosis, is followed in nephrology clinic. -likely dehydrated from poor oral intake, GI losses as well prior to admission. received contrast for CT angiography - *Hypernatremia secondary to free water deficit -pt not taking orally *Generalized weakness: 2/2 combination of above *HTN: Has been on losartan/metoprolol/chlorthalidone. Was on amlodipine which was stopped d/t LE edema. 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 I do not see any other mention of that and what notes are available. She is not on replacement steroids. AM cortisol ok. *Depression: on SSRI *Diarrhea: c. diff neg *Hypomag: prn replace *Goals of care: Guarded prognosis given age and covid + status and generalized decline P: -Goals of care discussions with family in light of overall poor prognosis d/c Abx, finished course -cont monitor resp status -hypotonic IVF's, Hold losartan given renal function changes; hold chlorthalidone while monitoring renal fxn; Continue with beta-duran, Continue to follow renal function, Avoid nephrotoxins, -IS/Acapella -pt/ot -f/u cxr -TF's per dietary -ppx: heparin DNR Time Spent With Patient Time: Total time spent is greater than 50% in coordination of care (as doc umented) at patient's floor/unit and/or counseling patient: QUALITY VTE Deep Vein Thrombosis/Pulmonary Embolism Present on Admission: No
[2020-06-08] MEDS ORDERED: DEXTROSE 5% IN WATER 250 ML IV SCH (09:00)
[2020-06-08] MEDS: METOPROLOL SUCCINATE 25 MG TAB.XL.24H PO SCH (09:27)
[2020-06-08] MEDS: HEPARIN 5,000 UNIT/ML VIAL SQ SCH ×2 (09:27→20:23)
[2020-06-08] MEDS: GABAPENTIN 100 MG CAPSULE PO SCH (20:23)
[2020-06-09] MEDS: PIPERACILLIN SODIUM/TAZOBACTAM 2.25 GM in DEXTROSE 5% IN WATER 50 ML IV SCH ×4 (00:05→18:00)
[2020-06-09] MEDS: HYDROcodone/APAP 5/325MG TABLET PO PRN ×3 (00:12→08:52)
[2020-06-09] MEDS: DEXTROSE 5%-1/4NS 1,000 ML IV SCH (03:24)
[2020-06-09] MEDS: 0.9 % SODIUM CHLORIDE 10 ML SYRINGE IV SCH ×3 (06:06→21:55)
[2020-06-09 07:14] LABS: ALT/SGPT 12 U/l (0-40); AST/SGOT 31 U/l (0-37); Alkaline Phosphatase 47 U/L (39-117); Bilirubin,Direct < 0.2 mg/dL (0.0-0.3); Bilirubin,Total 0.4 mg/dL (0.0-1.0); Blood Urea Nitrogen 57 mg/dl (8-23); Calcium 9.3 mg/dl (8.6-10.4); Glucose 141 mg/dL (70-105); Lactate Dehydrogenase 437 U/L (94-250); Triglycerides 102 mg/dl (<150); Uric Acid 9.2 mg/dL (2.5-8.0)
--- NOTE | 2020-06-09 07:15 | Internal Med Progress Note ---
SUBJECTIVE Subjective Patient information: Note initiated : 06/09/20 at 7:13 am Service Date, if different from initiated Date: [] Patient: Amna Lawrence a 89 y/o F admitted on 05/28/20 for nausea, vomiting, diarrhea, weakness. Chief Complaint: [] Interval history: Ms. Lawrence is a 89 year old F with a history of chronic kidney disease, hypertension, hypercholesterolemia, osteoporosis who presented to the emergency department yesterday with nausea, vomiting, diarrhea and weakness. She was noted to have weakness, been crying, was not able to get around. She was evaluated, received fluids, symptoms were controlled and attempts were made for her to return home. However there were no contact numbers available for family or friends for the patient to return to her apartment (where she lives with her significant other). She stayed in the emergency department overnight. This morning, she seemed to have decreased interactivity. A caregiver was contacted who states that she is quite vibrant at baseline and generally independent. There was concern that this could represent stroke, she underwent stroke protocol, had CT angios of the head and neck. No evidence of stroke or significant blockages were found. However cuts through the left upper lung field revealed evidence of patchy infiltrates consistent with pneumonia. Full details of emergency department course are contained in Dr. Mensah's note. The patient is unable to provide any history. She is alert, mumbling answers at times which I cannot understand, appears to be a little distraught and crying. Cannot point out to any place where she is hurting or express what might be causing her discomfort. She does not appear to be struggling to breathe, there is no accessory muscle use and she is maintaining saturations. Given the patient's pneumonia, alteration in mental status, she is being admitted for treatment with IV antibiotics. Her pneumonia severity index is 109, and her curb65 score is 3. 05/29 Patient remains tearful this morning. Kind of hard to understand. Why do see her she is able to express that she feels cold in the room was cold. Overall better able to communicate than yesterday. Follows instructions when asked her to roll to help examine her lungs. Urinary strep pneumo antigen is positive. Pertinent ROS: Other than complaining of being cold, does not really answer questions. 05/30 Patient seem to answer my simple questions answering yes or no or nodding head. Has no new complaints. I discussed CODE STATUS with her and she nodded no to CPR and intubation but I had a hard time confirming that we would focus on comfort and letting nature take its course and that sort of event. Nursing also reached out to her next of kin, her niece (given that there has been a question of whether the patient is understanding code status), who asked that the patient be DNR. Also, I do feel that in talking with the patient this morning she did appear to understand my code status questions. 05/31 No issues overnight. Follow-up chest x-ray with worsening infiltrates despite diuresis. Still on room air. Difficult to understand her as she does not have her dentures but easier to understand response to simple yes/no questions. 06/01 Nursing had put oxygen on the patient last night. Also per nursing she has not eating or drinking very much. Creatinine elevated today. Will attempt to wean down off oxygen and then follow-up chest x-ray in the morning. IV hydration today and reevaluate renal function tomorrow. She seems to be declining and especially given her underlying COVID diagnosis, concern for prognosis. 06/02 No change. She was on oxygen last night. She is off oxygen this morning but while sitting in bed sounds like her oxygen needs usually is more of an issue when she starts moving around. Chest x-ray showed some increasing bilateral infiltrates today. billing services managerspd manager difficult time getting a hold of family sounds like she has a significant other but he does not make decisions for her, she has a niece that is helped us out with coke status. 06/03 Patient quite drowsy today. Not really answering my questions seems to be making some attempt. She is on 1 L of oxygen nasal cannula. Patient not showing any real improvement. Family discussions regarding goals of care and hospice versus comfort care. 06/04-patient POA/family decided on initiation of comfort care interventions. Patient already refusing oral medications. Start aggressive pain and symptom management for end-of-life care. 06/05-patient continues on comfort care. Sats mid 80s on room air. No active concerns per staff. No family at bedside. Gradual deterioration in overall status. Remains minimally responsive 06/06-patient currently on comfort intervention. Minimal responsive. On Ativan/morphine as needed. No family bedside. Sats 86% on room air. Nursing staff informed about patient's niece Sonia would like to initiate tube feeding/hydration and treatment of pneumonia and discontinue comfort care interventions. I called the niece and had an extended conversation on phone wherein she expressed her concerns about patient status quo over the last 48 hours and she expressed her desire to discontinue comfort intervention and initiate full medical intervention during antibiotics/fluids. She also expressed desire to discontinue sedating/opioids to keep patient awake. Subsequently comfort care orders were discontinued, Patient started on Zosyn ,IV fluids at 50 an hour,Dobbhoff tube feeding,Discontinue opioids/sedatives 06/07-patient continues to remain unresponsive. White count 8.2, sodium 146, creatinine 3 BUN 68 secondary to volume depletion. Continue free water replacement/gentle hydration. Patient remains a poor prognosis overall. Further goals of care discussions today 06/08 Tube feeds continue. Patient verbally unresponsive. She will moan to dental sternal rub. 06/09 She is on minimal oxygen. All of her numbers have improved. Renal function has improved. However she does not seem be responding. And still minimally responsive, moaning at times. Need to have further family discussions as she appears to be in severe decline despite correction of acute illness. Unable to obtain review of system given nonverbal status. Constitutional Vitals: Vital Signs Temp Pulse Resp BP Pulse Ox 97.2 F 60 14 163/69 98 06/08/20 12:04 06/08/20 19:32 06/08/20 20:00 06/08/20 19:32 06/08/20 20:00 Period Temp Pulse Resp BP Sys/Li Pulse Ox Last 24 Hr 97.2 F-97.4 F 60 14-20 163-168/69-100 96-100 Intake and Output 06/08/20 06/09/20 06/09/20 21:59 05:59 13:59 Intake Total 155 490 50 Output Total 100 150 Balance 55 340 50 Intake & Output: Intake & Output 06/08/20 06/09/20 06/09/20 21:59 05:59 13:59 Intake Total 155 490 50 Output Total 100 150 Balance 55 340 50 Intake: IV 50 50 50 Zosyn 2.25 gm In Dextrose 5% in 50 50 50 Water 50 ml @ 100 mls/hr IV Q6H [facility] Rx#:[id number] Tube Feeding 45 260 GI Tube Flush 60 180 Output: Urine Catheter Amount 100 150 Other: Urine Appearance Cloudy Clear Sediment Uretheral (Cristobal) Clear Urine Color Dark Yellow Pale Bright Yellow Uretheral (Cristobal) Bright Yellow Urine Odor Normal Normal Uretheral (Cristobal) Strong Exam: General: somnolent, moaning at times Eyes/N/T: PERRL Head/Neck: neck supple, CV: RRR, 2-3/6 SM Pulm: diminished b/l, no wheezing Abd: soft, nontender, +BS x4 Ext: no clubbing/cyanosis/edema Neuro: somnolent, does not verbalize or follow commands, is not taking orally Skin: warm/dry OBJ DATA Labs CBC & Chem 7: 06/07/20 05:00 06/09/20 05:15 Labs: Abnormal Lab Results 06/07/20 06/07/20 06/06/20 05:00 05:00 18:11 Hgb 10.9 L MCHC 30.4 L [place] % (Auto) 12.4 H [place] # (Auto) 1.02 H Sodium 146 H 147 H Chloride 110 H Carbon Dioxide 20 L BUN 68 H 65 H Creatinine 3.0 H 3.0 H Uric Acid 11.2 H 10.7 H Phosphorus 5.5 H 6.9 H* Magnesium 2.6 H AST 59 H 40 H Lactate Dehydrogenase 470 H 323 H Albumin 2.1 L 2.7 L Globulin 4.2 H 3.8 H Albumin/Globulin Ratio 0.5 L 0.7 L Triglycerides 205 H 06/06/20 18:11 Hgb MCHC [place] % (Auto) 13.4 H [place] # (Auto) 0.95 H Sodium Chloride Carbon Dioxide BUN Creatinine Uric Acid Phosphorus Magnesium AST Lactate Dehydrogenase Albumin Globulin Albumin/Globulin Ratio Triglycerides Meds: Medications Hydrocodone Bitart/Acetaminophen ([place] 5/325mg) 1 - 2 tab PO Q4H PRN; Protocol PRN Reason: Pain Last Admin: 06/09/20 04:14 Dose: 2 tab Documented by: Gabapentin (Neurontin) 100 mg PO HS [facility]ENIS Last Admin: 06/08/20 20:23 Dose: 100 mg Documented by: Glucose Oxid/Lactoperoxid/Muramidas (Biotene) 1 each TOPICAL PRN PRN PRN Reason: Dry Mouth Heparin Sodium (Porcine) (Heparin) 5,000 unit SQ Q12 [facility] Last Admin: 06/08/20 20:23 Dose: 5,000 unit Documented by: Piperacillin Sod/Tazobactam (Sod 2.25 gm/ Dextrose) 50 mls @ 100 mls/hr IV Q6H [facility]; Protocol Last Infusion: 06/09/20 06:40 Dose: Infused Documented by: Dextrose/Sodium Chloride (Dextrose 5%-Sod Chloride 0.2%) 1,000 mls @ 50 mls/hr IV .Q20H [facility] Last Admin: 06/09/20 03:24 Dose: Not Given Documented by: Metoprolol Succinate (Toprol Xl) 25 mg PO DAILY [facility] Last Admin: 06/08/20 09:27 Dose: 25 mg Documented by: Ondansetron HCl (Zofran) 4 mg IV Q6HP PRN PRN Reason: Nausea And Vomiting Sodium Chloride (Saline Flush) 10 ml IV Q8 [facility] Last Admin: 06/09/20 06:06 Dose: Not Given Documented by: A/P Narrative A/P Narrative: A: *Pneumonia/COVID(+) & Strep Pneumiae (+): improved -Gradual clinical deterioration noted. Extremely poor prognosis in the setting of worsening pneumonia/deteriorating status. Per family recommendations patient started back on antibiotic coverage. *Acute Hypoxic Resp failure: 2/2 above -on 0.5L NC and occasional room air *Encephalopathy: Likely 2/2 infectious illness/pneumonia/?underlying cognitive impairment. -initially showed improvement, but becoming less responsive since earlier in week. *MARINA on CKD III: ?ATN from contrast but more likely poor oral intake as pt not eating/drinking much -She has hypertensive nephrosclerosis, is followed in nephrology clinic. -likely dehydrated from poor oral intake, GI losses as well prior to admission. received contrast for CT angiography - *Hypernatremia secondary to free water deficit -pt not taking orally -improved *HTN: Has been on losartan/metoprolol/chlorthalidone. Was on amlodipine which was stopped d/t LE edema. 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 I do not see any other mention of that and what notes are available. She is not on replacement steroids. AM cortisol ok. *Depression: on SSRI *Diarrhea: c. diff neg *Hypomag: prn replace *Generalized weakness/Deconditionin/2 combination of above *Goals of care: Guarded prognosis given age and covid + status and generalized decline -less responsive despite correction of metabolic disturbance, not taking orally P: -Goals of care discussions with family in light of overall poor prognosis d/c Abx, finished course -cont monitor resp status -hypotonic IVF's, Hold losartan given renal function changes; hold chlorthalidone while monitoring renal fxn; Continue with beta-duran, Continue to follow renal function, Avoid nephrotoxins, -IS/Acapella -pt/ot -f/u cxr -TF's per dietary -ppx: heparin DNR Time Spent With Patient Time: Total time spent is greater than 50% in coordination of care (as docu mented) at patient's floor/unit and/or counseling patient: QUALITY VTE Deep Vein Thrombosis/Pulmonary Embolism Present on Admission: No
[2020-06-09 07:25] LABS: Albumin 1.9 gm/dL (3.2-5.2); Albumin/Globulin Ratio 0.5 (1.0-2.3); Carbon Dioxide 25 mmol/L (22-30); Chloride 109 mmol/L (96-108); Globulin 3.7 gm/dL (2.2-3.7); Glomerular Filtration Rate 26; Phosphorous 2.6 mg/dL (2.7-4.5)
[2020-06-09] MEDS: METOPROLOL SUCCINATE 25 MG TAB.XL.24H PO SCH (08:52)
[2020-06-09] MEDS: HEPARIN 5,000 UNIT/ML VIAL SQ SCH ×2 (09:02→21:54)
[2020-06-09] MEDS ORDERED: 0.45 % SODIUM CHLORIDE 1,000 ML IV SCH (09:30)
[2020-06-09] MEDS ORDERED: SENNOSIDES 8.8 MG/5 ML ML PT PRN (11:22)
[2020-06-09] MEDS ORDERED: POLYETHYLENE GLYCOL 3350 17 GM PACKET PO ONE (11:22)
[2020-06-09] MEDS ORDERED: POLYETHYLENE GLYCOL 3350 17 GM PACKET PO PRN (11:22)
[2020-06-09] MEDS: DEXTROSE 5%-1/2NS 1,000 ML IV SCH (11:37)
[2020-06-09] MEDS: DOCUSATE SODIUM 100 MG CAPSULE PO SCH ×2 (11:57→21:55)
[2020-06-09] MEDS: ACETAMINOPHEN 1,000 MG/100 ML BOTTLE IV PRN ×2 (15:02→22:03)
--- NOTE | 2020-06-09 16:03 | XRay Report ---
CLINICAL INFORMATION: ?constipation COMPARISON: None. FINDINGS: Dobbhoff tip within the descending/ transverse duodenal junction. Stool gas pattern is normal. No free air, soft tissue mass or pathologic calcification. IMPRESSION: No acute disease. Dobbhoff tip in the descending duodenum in good position Interpreted and Authenticated by: Akin Sparks 06/09/20
[2020-06-09] MEDS ORDERED: hydrOXYzine 25 MG TABLET PO ONE (21:00)
[2020-06-09] MEDS ORDERED: MELATONIN 3 MG TABLET PO PRN (21:21)
[2020-06-09] MEDS: GABAPENTIN 100 MG CAPSULE PO SCH (21:54)
[2020-06-10] MEDS: PIPERACILLIN SODIUM/TAZOBACTAM 2.25 GM in DEXTROSE 5% IN WATER 50 ML IV SCH ×2 (00:39→06:40)
[2020-06-10] MEDS: HYDROcodone/APAP 5/325MG TABLET PO PRN ×4 (02:07→21:34)
[2020-06-10] MEDS: ACETAMINOPHEN 1,000 MG/100 ML BOTTLE IV PRN ×2 (04:08→21:47)
--- NOTE | 2020-06-10 06:02 | XRay Report ---
CLINICAL INFORMATION: confirm Dobhoff placement COMPARISON: None. FINDINGS: Dobbhoff tube was withdrawn with the tip now been in the gastric pylorus. Stool gas pattern is normal. No free air, soft tissue mass or organomegaly. IMPRESSION: Dobbhoff tip is withdrawn from the duodenum is now bent in the gastric pylorus. No acute disease Interpreted and Authenticated by: Akin Sparks 06/10/20
--- NOTE | 2020-06-10 06:05 | XRay Report ---
CLINICAL INFORMATION: Confirm placement of dobhoff COMPARISON: None. FINDINGS: Dobbhoff tube is now straightened - tip overlies the gastric pylorus. Stool gas pattern is normal. No free air, soft tissue mass or organomegaly. IMPRESSION: Dobbhoff tip is now straight and overlies the gastric pylorus. Consider feeding at a slow continuous rate with the patient's head up to reduce aspiration risk. The tube could be gently advanced 10 cm with the patient in left decubitus position Interpreted and Authenticated by: Akin Sparks 06/10/20
[2020-06-10] MEDS: DEXTROSE 5%-1/2NS 1,000 ML IV SCH ×2 (06:07→09:46)
[2020-06-10] MEDS: 0.9 % SODIUM CHLORIDE 10 ML SYRINGE IV SCH ×3 (06:40→20:23)
[2020-06-10 07:08] LABS: ALT/SGPT 12 U/l (0-40); AST/SGOT 29 U/l (0-37); Albumin/Globulin Ratio 0.5 (1.0-2.3); Alkaline Phosphatase 52 U/L (39-117); Bilirubin,Direct 0.2 mg/dL (0.0-0.3); Bilirubin,Total 0.6 mg/dL (0.0-1.0); Blood Urea Nitrogen 47 mg/dl (8-23); Calcium 9.5 mg/dl (8.6-10.4); Carbon Dioxide 23 mmol/L (22-30); Chloride 105 mmol/L (96-108); Globulin 3.9 gm/dL (2.2-3.7); Glomerular Filtration Rate 31; Glucose 125 mg/dL (70-105); Lactate Dehydrogenase 297 U/L (94-250); Triglycerides 124 mg/dl (<150); Uric Acid 7.5 mg/dL (2.5-8.0)
[2020-06-10 07:20] LABS: Phosphorous 1.5 mg/dL (2.7-4.5)
--- NOTE | 2020-06-10 08:09 | Internal Med Progress Note ---
SUBJECTIVE Subjective Patient information: Note initiated : 06/10/20 at 8:05 am Service Date, if different from initiated Date: [] Patient: Amna Lawrence a 89 y/o F admitted on 05/28/20 for nausea, vomiting, diarrhea, weakness. Chief Complaint: [] Interval history: Ms. Lawrence is a 89 year old F with a history of chronic kidney disease, hypertension, hypercholesterolemia, osteoporosis who presented to the emergency department yesterday with nausea, vomiting, diarrhea and weakness. She was noted to have weakness, been crying, was not able to get around. She was evaluated, received fluids, symptoms were controlled and attempts were made for her to return home. However there were no contact numbers available for family or friends for the patient to return to her apartment (where she lives with her significant other). She stayed in the emergency department overnight. This morning, she seemed to have decreased interactivity. A caregiver was contacted who states that she is quite vibrant at baseline and generally independent. There was concern that this could represent stroke, she underwent stroke protocol, had CT angios of the head and neck. No evidence of stroke or significant blockages were found. However cuts through the left upper lung field revealed evidence of patchy infiltrates consistent with pneumonia. Full details of emergency department course are contained in Dr. Mensah's note. The patient is unable to provide any history. She is alert, mumbling answers at times which I cannot understand, appears to be a little distraught and crying. Cannot point out to any place where she is hurting or express what might be causing her discomfort. She does not appear to be struggling to breathe, there is no accessory muscle use and she is maintaining saturations. Given the patient's pneumonia, alteration in mental status, she is being admitted for treatment with IV antibiotics. Her pneumonia severity index is 109, and her curb65 score is 3. 05/29 Patient remains tearful this morning. Kind of hard to understand. Why do see her she is able to express that she feels cold in the room was cold. Overall better able to communicate than yesterday. Follows instructions when asked her to roll to help examine her lungs. Urinary strep pneumo antigen is positive. Pertinent ROS: Other than complaining of being cold, does not really answer questions. 05/30 Patient seem to answer my simple questions answering yes or no or nodding head. Has no new complaints. I discussed CODE STATUS with her and she nodded no to CPR and intubation but I had a hard time confirming that we would focus on comfort and letting nature take its course and that sort of event. Nursing also reached out to her next of kin, her niece (given that there has been a question of whether the patient is understanding code status), who asked that the patient be DNR. Also, I do feel that in talking with the patient this morning she did appear to understand my code status questions. 05/31 No issues overnight. Follow-up chest x-ray with worsening infiltrates despite diuresis. Still on room air. Difficult to understand her as she does not have her dentures but easier to understand response to simple yes/no questions. 06/01 Nursing had put oxygen on the patient last night. Also per nursing she has not eating or drinking very much. Creatinine elevated today. Will attempt to wean down off oxygen and then follow-up chest x-ray in the morning. IV hydration today and reevaluate renal function tomorrow. She seems to be declining and especially given her underlying COVID diagnosis, concern for prognosis. 06/02 No change. She was on oxygen last night. She is off oxygen this morning but while sitting in bed sounds like her oxygen needs usually is more of an issue when she starts moving around. Chest x-ray showed some increasing bilateral infiltrates today. 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 06/03 Patient quite drowsy today. Not really answering my questions seems to be making some attempt. She is on 1 L of oxygen nasal cannula. Patient not showing any real improvement. Family discussions regarding goals of care and hospice versus comfort care. 06/04-patient POA/family decided on initiation of comfort care interventions. Patient already refusing oral medications. Start aggressive pain and symptom management for end-of-life care. 06/05-patient continues on comfort care. Sats mid 80s on room air. No active concerns per staff. No family at bedside. Gradual deterioration in overall status. Remains minimally responsive 06/06-patient currently on comfort intervention. Minimal responsive. On Ativan/morphine as needed. No family bedside. Sats 86% on room air. Nursing staff informed about patient's niece Sonia would like to initiate tube feeding/hydration and treatment of pneumonia and discontinue comfort care interventions. I called the niece and had an extended conversation on phone wherein she expressed her concerns about patient status quo over the last 48 hours and she expressed her desire to discontinue comfort intervention and initiate full medical intervention during antibiotics/fluids. She also expressed desire to discontinue sedating/opioids to keep patient awake. Subsequently comfort care orders were discontinued, Patient started on Zosyn ,IV fluids at 50 an hour,Dobbhoff tube feeding,Discontinue opioids/sedatives 06/07-patient continues to remain unresponsive. White count 8.2, sodium 146, creatinine 3 BUN 68 secondary to volume depletion. Continue free water replacement/gentle hydration. Patient remains a poor prognosis overall. Further goals of care discussions today 06/08 Tube feeds continue. Patient verbally unresponsive. She will moan to dental sternal rub. 06/09 She is on minimal oxygen. All of her numbers have improved. Renal function has improved. However she does not seem be responding. And still minimally responsive, moaning at times. Need to have further family discussions as she appears to be in severe decline despite correction of acute illness. Had a discussion with Sonia about patient's clinical course which is been continued decline despite correction of her metabolic disturbances. Patient patient weak and sleepy most of the time does not verbalize and does not eat orally. Treatment of pneumonia and improving patient status and patient on minimal oxygen. Renal function improved. He has been getting tube feedings for few days. But continuing to show no improvement. I readdressed hospice course and comfort care with Sonia. She seem to understand the patient's decline/course but could not come to decision at that moment. 06/10 Dobbhoff clogged and replaced last night. Patient moans frequently but when I call her name she will stop and does appear comfortable. I suspect this is more of a delirium issue than pain although cannot rule out some degree of dis comfort. Awaiting further direction from family. Unable to obtain review of system given nonverbal status. Constitutional Vitals: Vital Signs Temp Pulse Resp BP Pulse Ox 98.9 F 100 H 30 H 168/99 100 06/10/20 07:56 06/09/20 19:40 06/10/20 07:56 06/10/20 07:56 06/10/20 07:56 Period Temp Pulse Resp BP Sys/Li Pulse Ox Last 24 Hr 97.9 F-98.9 F 100 16-30 146-168/89-99 96-100 Intake and Output 06/09/20 06/10/20 06/10/20 21:59 05:59 13:59 Intake Total 150 424 100 Output Total 500 300 Balance -350 124 100 Intake & Output: Intake & Output 06/09/20 06/10/20 06/10/20 21:59 05:59 13:59 Intake Total 150 424 100 Output Total 500 300 Balance -350 124 100 Intake: IV 150 150 100 Zosyn 2.25 gm In Dextrose 5% in 50 50 Water 50 ml @ 100 mls/hr IV Q6H [facility] Rx#:[id number] Tube Feeding 0 154 GI Tube Flush 120 Output: Urine Catheter Amount 500 300 Other: Urine Appearance Cloudy Cloudy Uretheral (Cristobal) Cloudy Urine Color Dark Yellow Dark Yellow Uretheral (Cristobal) Dark Yellow Stool Size Moderate Moderate Stool Color Brown Brown Stool Consistency Liquid Liquid # of times incontinent of 1 Bowels Exam: General: somnolent, moaning frequently but stops when call out her name Eyes/N/T: PERRL Head/Neck: neck supple, CV: RRR, 2-3/6 SM Pulm: diminished b/l no rhonchi noted laterally, no wheezing Abd: soft, nontender, +BS x4 Ext: no clubbing/cyanosis/edema Neuro: somnolent, does not verbalize or follow commands, is not taking orally Skin: warm/dry OBJ DATA Labs CBC & Chem 7: 06/07/20 05:00 06/10/20 05:20 Labs: Abnormal Lab Results 06/10/20 06/09/20 05:20 05:15 Chloride 109 H BUN 47 H 57 H Creatinine 1.5 H 1.7 H Glucose 125 H 141 H Uric Acid 9.2 H Phosphorus 1.5 L 2.6 L Lactate Dehydrogenase 297 H 437 H Total Protein 5.6 L Albumin 2.0 L 1.9 L Globulin 3.9 H Albumin/Globulin Ratio 0.5 L 0.5 L Meds: Medications Hydrocodone Bitart/Acetaminophen ([place] 5/325mg) 1 - 2 tab PO Q4H PRN; Protocol PRN Reason: Pain Last Admin: 06/10/20 02:07 Dose: 1 tab Documented by: Docusate Sodium (Colace) 100 mg PO BID [facility] Last Admin: 06/09/20 21:55 Dose: Not Given Documented by: Gabapentin (Neurontin) 100 mg PO HS [facility] Last Admin: 06/09/20 21:54 Dose: 100 mg Documented by: Glucose Oxid/Lactoperoxid/Muramidas (Biotene) 1 each TOPICAL PRN PRN PRN Reason: Dry Mouth Heparin Sodium (Porcine) (Heparin) 5,000 unit SQ Q12 [facility] Last Admin: 06/09/20 21:54 Dose: 5,000 unit Documented by: Piperacillin Sod/Tazobactam (Sod 2.25 gm/ Dextrose) 50 mls @ 100 mls/hr IV Q6H [facility]; Protocol Last Admin: 06/10/20 06:40 Dose: 100 mls/hr Documented by: Dextrose/Sodium Chloride (Dextrose 5%-1/2ns Iv Solution) 1,000 mls @ 60 mls/hr IV .[id number] [facility] Last Admin: 06/10/20 06:07 Dose: Not Given Documented by: Acetaminophen (Ofirmev) 1,000 mg in 100 mls @ 200 mls/hr IV Q6HP PRN; Protocol PRN Reason: PAIN/FEVER > 101 Last Infusion: 06/10/20 06:08 Dose: Infused Documented by: Melatonin (Melatonin 3mg Tablet) 3 mg PO HSP PRN PRN Reason: Sleep Last Admin: 06/09/20 21:55 Dose: 3 mg Documented by: Metoprolol Succinate (Toprol Xl) 25 mg PO DAILY [facility] Last Admin: 06/09/20 08:52 Dose: 25 mg Documented by: Ondansetron HCl (Zofran) 4 mg IV Q6HP PRN PRN Reason: Nausea And Vomiting Polyethylene Glycol (Miralax) 17 gm PO DAILYP PRN PRN Reason: Constipation Senna (Senna) 8.8 mg PT DAILY PRN PRN Reason: constipation Sodium Chloride (Saline Flush) 10 ml IV Q8 [facility] Last Admin: 06/10/20 06:40 Dose: 10 ml Documented by: A/P Assessment and plan (1) Pneumonia: Status: Acute Qualifiers: Laterality: left Lung location: upper lobe of lung Pneumonia type: due to unspecified organism Qualified Code(s): J18.9 - Pneumonia, unspecified organism Narrative A/P Narrative: A: *Pneumonia/COVID(+) & Strep Pneumiae (+): improved -Gradual clinical deterioration noted. Extremely poor prognosis in the setting of worsening pneumonia/deteriorating status. Per family recommendations patient started back on antibiotic coverage. *Acute Hypoxic Resp failure: 2/2 above -on room air to 0.5L NC *Encephalopathy: Likely 2/2 infectious illness/pneumonia/?underlying cognitive impairment. -initially showed improvement, but becoming less responsive since earlier in week. *MARINA on CKD III: ?ATN from contrast but more likely poor oral intake as pt not eating/drinking much -She has hypertensive nephrosclerosis, is followed in nephrology clinic. -likely dehydrated from poor oral intake, GI losses as well prior to admission. received contrast for CT angiography - *Hypernatremia secondary to free water deficit -pt not taking orally -corrected *HTN: Has been on losartan/metoprolol/chlorthalidone. Was on amlodipine which was stopped d/t LE edema. -At one point she was going to be on furosemide, though chlorthalidone is on current list *Depression: on SSRI *Diarrhea: c. diff neg *Hypomag: prn replace *Generalized weakness/Deconditionin/2 combination of above *Goals of care: Guarded prognosis given age and covid + status and generalized decline -less responsive despite correction of metabolic disturbance, not taking orally -discussed with Marianela (06/09) about continued decline despite correction of metabolic disturbances and to reconsider goals of care including hospice/comfort care. P: -continue Goals of care discussions with family in light of overall poor prognosis finished abx course -CT brain r/o other causes of encephalopathy - Hold losartan given renal function changes; hold chlorthalidone while monitoring renal fxn; Continue with beta-duran, Continue to follow renal function, Avoid nephrotoxins, -IS/Acapella -pt/ot -TF's per dietary, pt not taking orally -ppx: heparin DNR Time Spent With Patient Time: Total time spent is greater than 50% in coordination of care (as documented) at patient's floor/unit and/or counseling patient: QUALITY VTE Deep Vein Thrombosis/Pulmonary Embolism Present on Admission: No
[2020-06-10] MEDS ORDERED: POTASSIUM PHOSPHATE 40 MEQ in DEXTROSE 5% IN WATER 500 ML IV ONE (08:13)
[2020-06-10] MEDS: DOCUSATE SODIUM 100 MG CAPSULE PO SCH ×2 (09:47→20:22)
[2020-06-10] MEDS: HEPARIN 5,000 UNIT/ML VIAL SQ SCH ×2 (09:48→21:33)
[2020-06-10] MEDS: METOPROLOL SUCCINATE 25 MG TAB.XL.24H PO SCH ×2 (09:50→10:01)
[2020-06-10] MEDS: METOPROLOL TARTRATE 25 MG TABLET PT SCH ×2 (13:00→21:33)
[2020-06-10] MEDS: PARoxetine 20 MG TABLET PO SCH (13:01)
--- NOTE | 2020-06-10 13:17 | Cat Scan Report ---
CLINICAL INFORMATION: Decreased level consciousness delirium COMPARISON: Head CT 05/28/2020 TECHNIQUE: 2.5 mm helical slices were obtained in the skull base to vertex. Following reconstruction, axial reformatted images were reviewed at bone and parenchymal windows. The exam was performed using radiation dose optimization techniques including, but not limited to, automated exposure control, adjustment of the mA and/or kV according to patient size and use of iterative reconstruction technique. FINDINGS: The ventricles, sulci, fissures, and cisterns are symmetrically enlarged bowel moderate age-related atrophy - no subdural hemorrhage or other extra-axial fluid collection appreciated. Minimal chronic ischemic changes seen in the deep cerebral white matter.There is no evidence of hemorrhage, mass effect, or edema. Bone windows show no osseous abnormality. IMPRESSION: Moderate atrophy with chronic ischemic changes in the deep cerebral white matter - expected for age. Stable no acute findings Interpreted and Authenticated by: Akin Sparks 06/10/20
[2020-06-10] MEDS: LOPERAMIDE 2 MG CAPSULE PO PRN ×2 (17:04→21:35)
[2020-06-10] MEDS: GABAPENTIN 100 MG CAPSULE PO SCH (21:34)
[2020-06-11] MEDS: HYDROcodone/APAP 5/325MG TABLET PO PRN ×3 (02:06→08:19)
[2020-06-11] MEDS: 0.9 % SODIUM CHLORIDE 10 ML SYRINGE IV SCH ×3 (06:23→19:00)
--- NOTE | 2020-06-11 07:14 | Internal Med Progress Note ---
SUBJECTIVE Subjective Patient information: Note initiated : 06/11/20 at 7:13 am Service Date, if different from initiated Date: [] Patient: Amna Lawrence a 89 y/o F admitted on 05/28/20 for nausea, vomiting, diarrhea, weakness. Chief Complaint: [] Interval history: Ms. Lawrence is a 89 year old F with a history of chronic kidney disease, hypertension, hypercholesterolemia, osteoporosis who presented to the emergency department yesterday with nausea, vomiting, diarrhea and weakness. She was noted to have weakness, been crying, was not able to get around. She was evaluated, received fluids, symptoms were controlled and attempts were made for her to return home. However there were no contact numbers available for family or friends for the patient to return to her apartment (where she lives with her significant other). She stayed in the emergency department overnight. This morning, she seemed to have decreased interactivity. A caregiver was contacted who states that she is quite vibrant at baseline and generally independent. There was concern that this could represent stroke, she underwent stroke protocol, had CT angios of the head and neck. No evidence of stroke or significant blockages were found. However cuts through the left upper lung field revealed evidence of patchy infiltrates consistent with pneumonia. Full details of emergency department course are contained in Dr. Mensah's note. The patient is unable to provide any history. She is alert, mumbling answers at times which I cannot understand, appears to be a little distraught and crying. Cannot point out to any place where she is hurting or express what might be causing her discomfort. She does not appear to be struggling to breathe, there is no accessory muscle use and she is maintaining saturations. Given the patient's pneumonia, alteration in mental status, she is being admitted for treatment with IV antibiotics. Her pneumonia severity index is 109, and her curb65 score is 3. 05/29 Patient remains tearful this morning. Kind of hard to understand. Why do see her she is able to express that she feels cold in the room was cold. Overall better able to communicate than yesterday. Follows instructions when asked her to roll to help examine her lungs. Urinary strep pneumo antigen is positive. Pertinent ROS: Other than complaining of being cold, does not really answer questions. 05/30 Patient seem to answer my simple questions answering yes or no or nodding head. Has no new complaints. I discussed CODE STATUS with her and she nodded no to CPR and intubation but I had a hard time confirming that we would focus on comfort and letting nature take its course and that sort of event. Nursing also reached out to her next of kin, her niece (given that there has been a question of whether the patient is understanding code status), who asked that the patient be DNR. Also, I do feel that in talking with the patient this morning she did appear to understand my code status questions. 05/31 No issues overnight. Follow-up chest x-ray with worsening infiltrates despite diuresis. Still on room air. Difficult to understand her as she does not have her dentures but easier to understand response to simple yes/no questions. 06/01 Nursing had put oxygen on the patient last night. Also per nursing she has not eating or drinking very much. Creatinine elevated today. Will attempt to wean down off oxygen and then follow-up chest x-ray in the morning. IV hydration today and reevaluate renal function tomorrow. She seems to be declining and especially given her underlying COVID diagnosis, concern for prognosis. 06/02 No change. She was on oxygen last night. She is off oxygen this morning but while sitting in bed sounds like her oxygen needs usually is more of an issue when she starts moving around. Chest x-ray showed some increasing bilateral infiltrates today. 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 06/03 Patient quite drowsy today. Not really answering my questions seems to be making some attempt. She is on 1 L of oxygen nasal cannula. Patient not showing any real improvement. Family discussions regarding goals of care and hospice versus comfort care. 06/04-patient POA/family decided on initiation of comfort care interventions. Patient already refusing oral medications. Start aggressive pain and symptom management for end-of-life care. 06/05-patient continues on comfort care. Sats mid 80s on room air. No active concerns per staff. No family at bedside. Gradual deterioration in overall status. Remains minimally responsive 06/06-patient currently on comfort intervention. Minimal responsive. On Ativan/morphine as needed. No family bedside. Sats 86% on room air. Nursing staff informed about patient's niece Sonia would like to initiate tube feeding/hydration and treatment of pneumonia and discontinue comfort care interventions. I called the niece and had an extended conversation on phone wherein she expressed her concerns about patient status quo over the last 48 hours and she expressed her desire to discontinue comfort intervention and initiate full medical intervention during antibiotics/fluids. She also expressed desire to discontinue sedating/opioids to keep patient awake. Subsequently comfort care orders were discontinued, Patient started on Zosyn ,IV fluids at 50 an hour,Dobbhoff tube feeding,Discontinue opioids/sedatives 06/07-patient continues to remain unresponsive. White count 8.2, sodium 146, creatinine 3 BUN 68 secondary to volume depletion. Continue free water replacement/gentle hydration. Patient remains a poor prognosis overall. Further goals of care discussions today 06/08 Tube feeds continue. Patient verbally unresponsive. She will moan to dental sternal rub. 06/09 She is on minimal oxygen. All of her numbers have improved. Renal function has improved. However she does not seem be responding. And still minimally responsive, moaning at times. Need to have further family discussions as she appears to be in severe decline despite correction of acute illness. Had a discussion with Sonia about patient's clinical course which is been continued decline despite correction of her metabolic disturbances. Patient patient weak and sleepy most of the time does not verbalize and does not eat orally. Treatment of pneumonia and improving patient status and patient on minimal oxygen. Renal function improved. He has been getting tube feedings for few days. But continuing to show no improvement. I readdressed hospice course and comfort care with Sonia. She seem to understand the patient's decline/course but could not come to decision at that moment. 06/10 Dobbhoff clogged and replaced last night. Patient moans frequently but when I call her name she will stop and does appear comfortable. I suspect this is more of a delirium issue than pain although cannot rule out some degree of dis comfort. Awaiting further direction from family. 06/11 No change. Patient on room air getting tube feeds, poorly responsive. Need to have a family discussion and ethics committee meeting today. Futility and I am concerned that were just prolonging suffering. Unable to obtain review of system given nonverbal status. Constitutional Vitals: Vital Signs Temp Pulse Resp BP Pulse Ox 98.2 F 84 24 H 123/77 92 09/08/20 06:47 06/10/20 20:42 06/11/20 06:47 06/11/20 06:47 06/11/20 06:47 Period Temp Pulse Resp BP Sys/Li Pulse Ox Last 24 Hr 96.5 F-98.9 F 84-84 14-30 123-168/77-99 92-100 Intake and Output 06/10/20 06/11/20 06/11/20 21:59 05:59 13:59 Intake Total 659.0909 2100 Output Total 175 425 Balance 484.0909 1675 Intake & Output: Intake & Output 06/10/20 06/11/20 06/11/20 21:59 05:59 13:59 Intake Total 659.0909 2100 Output Total 175 425 Balance 484.0909 1675 Intake: IV 509.0909 100 Potassium Phosphate 40 Meq In 509.0909 Dextrose 5% in Water 500 ml @ 127.273 mls/hr IV ONCE ONE Rx#: [id number] Tube Feeding 90 1400 GI Tube Flush 60 600 Output: Urine Catheter Amount 425 Void Amount 175 Other: Urine Appearance Clear Clear Uretheral (Cristobal) Clear Urine Color Bright Yellow Bright Yellow Uretheral (Cristobal) Bright Yellow Urine Odor Normal Stool Size Moderate Stool Color Brown Stool Consistency Liquid # Bowel Movements 1 # of times incontinent of 1 Bowels Exam: General: somnolent, moaning frequently but stops when call out her name Eyes/N/T: PERRL Head/Neck: neck supple, CV: RRR, 2-3/6 SM Pulm: diminished b/l no rhonchi noted laterally, no wheezing Abd: soft, nontender, +BS x4 Ext: no clubbing/cyanosis/edema Neuro: somnolent, does not verbalize or follow commands, is not taking orally Skin: warm/dry OBJ DATA Labs CBC & Chem 7: 06/07/20 05:00 06/11/20 05:00 Labs: Abnormal Lab Results 06/10/20 06/09/20 05:20 05:15 Chloride 109 H BUN 47 H 57 H Creatinine 1.5 H 1.7 H Glucose 125 H 141 H Uric Acid 9.2 H Phosphorus 1.5 L 2.6 L Lactate Dehydrogenase 297 H 437 H Total Protein 5.6 L Albumin 2.0 L 1.9 L Globulin 3.9 H Albumin/Globulin Ratio 0.5 L 0.5 L Meds: Medications Hydrocodone Bitart/Acetaminophen ([place] 5/325mg) 1 - 2 tab PO Q4H PRN; Protocol PRN Reason: Pain Last Admin: 06/11/20 06:34 Dose: 1 tab Documented by: Docusate Sodium (Colace) 100 mg PO BID [facility] Last Admin: 06/10/20 20:22 Dose: Not Given Documented by: Gabapentin (Neurontin) 100 mg PO HS [facility] Last Admin: 06/10/20 21:34 Dose: 100 mg Documented by: Glucose Oxid/Lactoperoxid/Muramidas (Biotene) 1 each TOPICAL PRN PRN PRN Reason: Dry Mouth Heparin Sodium (Porcine) (Heparin) 5,000 unit SQ Q12 [facility] Last Admin: 06/10/20 21:33 Dose: 5,000 unit Documented by: Acetaminophen (Ofirmev) 1,000 mg in 100 mls @ 200 mls/hr IV Q6HP PRN; Protocol PRN Reason: PAIN/FEVER > 101 Last Infusion: 06/10/20 22:17 Dose: Infused Documented by: Dextrose/Sodium Chloride (Dextrose 5%-1/2ns Iv Solution) 1,000 mls @ 40 mls/hr IV .Q24H [facility] Last Admin: 06/10/20 09:46 Dose: 40 mls/hr Documented by: Loperamide HCl (Imodium) 2 mg PO PRN PRN PRN Reason: Diarrhea Last Admin: 06/10/20 21:35 Dose: 2 mg Documented by: Melatonin (Melatonin 3mg Tablet) 3 mg PO HSP PRN PRN Reason: Sleep Last Admin: 06/09/20 21:55 Dose: 3 mg Documented by: Metoprolol Tartrate (Lopressor) 12.5 mg PT BID [facility] Last Admin: 06/10/20 21:33 Dose: 12.5 mg Documented by: Ondansetron HCl (Zofran) 4 mg IV Q6HP PRN PRN Reason: Nausea And Vomiting Paroxetine HCl (Paxil) 10 mg PO DAILY [facility] Last Admin: 06/10/20 13:01 Dose: 10 mg Documented by: Polyethylene Glycol (Miralax) 17 gm PO DAILYP PRN PRN Reason: Constipation Senna (Senna) 8.8 mg PT DAILY PRN PRN Reason: constipation Sodium Chloride (Saline Flush) 10 ml IV Q8 [facility] Last Admin: 06/11/20 06:23 Dose: 10 ml Documented by: A/P Assessment and plan (1) Pneumonia: Status: Acute Qualifiers: Laterality: left Lung location: upper lobe of lung Pneumonia type: due to unspecified organism Qualified Code(s): J18.9 - Pneumonia, unspecified organism Narrative A/P Narrative: A: *Pneumonia/COVID(+) & Strep Pneumiae (+): improved -Gradual clinical deterioration noted. Extremely poor prognosis in the setting of worsening pneumonia/deteriorating status. Per family recommendations patient started back on antibiotic coverage. *Acute Hypoxic Resp failure: 2/2 above -now on room air *Encephalopathy: Likely 2/2 infectious illness/pneumonia/?underlying cognitive impairment. -initially showed improvement, but becoming less responsive since earlier in week. -f/u CT brain no acute path *MARINA on CKD III: ?ATN from contrast but more likely poor oral intake as pt not eating/drinking much -She has hypertensive nephrosclerosis, is followed in nephrology clinic. -likely dehydrated from poor oral intake, GI losses as well prior to admission. received contrast for CT angiography -improved *Hypernatremia secondary to free water deficit -pt not taking orally -corrected *HTN: Has been on losartan/metoprolol/chlorthalidone. Was on amlodipine which was stopped d/t LE edema. -At one point she was going to be on furosemide, though chlorthalidone is on current list *Depression: on SSRI *Diarrhea: c. diff neg *Hypomag: prn replace *Generalized weakness/Deconditionin/2 combination of above *Goals of care: Guarded prognosis given age and covid + status and generalized decline -less responsive despite correction of metabolic disturbance, not taking orally -discussed with Marianela (06/09) about continued decline despite correction of metabolic disturbances and to reconsider goals of care including hospice/comfort care. P: -ethics mtg, - Hold losartan given renal function changes; hold chlorthalidone while monitoring renal fxn; Continue with beta-duran, Continue to follow renal function, Avoid nephrotoxins, -IS/Acapella -pt/ot -TF's per dietary, pt not taking orally -ppx: heparin DNR Time Spent With Patient Time: Total time spent is greater than 50% in coordination of care (as document ed) at patient's floor/unit and/or counseling patient: QUALITY VTE Deep Vein Thrombosis/Pulmonary Embolism Present on Admission: No
[2020-06-11 08:07] LABS: Chloride 106 mmol/L (96-108)
[2020-06-11 08:09] LABS: ALT/SGPT 11 U/l (0-40); AST/SGOT 43 U/l (0-37); Albumin 2.2 gm/dL (3.2-5.2); Albumin/Globulin Ratio 0.6 (1.0-2.3); Alkaline Phosphatase 79 U/L (39-117); Bilirubin,Direct < 0.2 mg/dL (0.0-0.3); Bilirubin,Total 0.4 mg/dL (0.0-1.0); Blood Urea Nitrogen 37 mg/dl (8-23); Calcium 9.9 mg/dl (8.6-10.4); Carbon Dioxide 21 mmol/L (22-30); Glomerular Filtration Rate 50; Glucose 117 mg/dL (70-105); Lactate Dehydrogenase 372 U/L (94-250); Triglycerides 113 mg/dl (<150); Uric Acid 6.2 mg/dL (2.5-8.0)
[2020-06-11] MEDS ORDERED: LOPERAMIDE 2 MG CAPSULE PO PRN (09:18)
[2020-06-11] MEDS ORDERED: ONDANSETRON 4 MG/2 ML VIAL IV PRN (09:18)
[2020-06-11] MEDS ORDERED: ONDANSETRON 4 MG ODT TABLET SL PRN (09:18)
[2020-06-11] MEDS ORDERED: POLYETHYLENE GLYCOL 3350 17 GM PACKET PO PRN (09:18)
[2020-06-11] MEDS ORDERED: SENNOSIDES 8.8 MG/5 ML ML PT PRN (09:18)
[2020-06-11] MEDS: LORazepam 2 MG/ML VIAL IV PRN (09:40)
[2020-06-11] MEDS: DOCUSATE SODIUM 100 MG CAPSULE PO SCH ×2 (10:27→20:12)
[2020-06-11] MEDS: PARoxetine 20 MG TABLET PO SCH (10:27)
[2020-06-11] MEDS: DEXTROSE 5%-1/2NS 1,000 ML IV SCH (10:27)
[2020-06-11] MEDS: HEPARIN 5,000 UNIT/ML VIAL SQ SCH (10:27)
[2020-06-11] MEDS: METOPROLOL TARTRATE 25 MG TABLET PT SCH (10:27)
[2020-06-11] MEDS: LACTOPEROXI/GLUC OXID/POT THIO 1 EACH GEL..EA. TOPICAL PRN (13:19)
[2020-06-12] MEDS: LORazepam 2 MG/ML VIAL IV PRN ×2 (05:27→12:29)
[2020-06-12] MEDS: 0.9 % SODIUM CHLORIDE 10 ML SYRINGE IV SCH ×3 (05:28→22:54)
--- NOTE | 2020-06-12 07:23 | Internal Med Progress Note ---
SUBJECTIVE Subjective Patient information: Note initiated : 06/12/20 at 7:22 am Service Date, if different from initiated Date: [] Patient: Amna Lawrence a 89 y/o F admitted on 05/28/20 for nausea, vomiting, diarrhea, weakness. Chief Complaint: [] Interval history: Ms. Lawrence is a 89 year old F with a history of chronic kidney disease, hypertension, hypercholesterolemia, osteoporosis who presented to the emergency department yesterday with nausea, vomiting, diarrhea and weakness. She was noted to have weakness, been crying, was not able to get around. She was evaluated, received fluids, symptoms were controlled and attempts were made for her to return home. However there were no contact numbers available for family or friends for the patient to return to her apartment (where she lives with her significant other). She stayed in the emergency department overnight. This morning, she seemed to have decreased interactivity. A caregiver was contacted who states that she is quite vibrant at baseline and generally independent. There was concern that this could represent stroke, she underwent stroke protocol, had CT angios of the head and neck. No evidence of stroke or significant blockages were found. However cuts through the left upper lung field revealed evidence of patchy infiltrates consistent with pneumonia. Full details of emergency department course are contained in Dr. Mensah's note. The patient is unable to provide any history. She is alert, mumbling answers at times which I cannot understand, appears to be a little distraught and crying. Cannot point out to any place where she is hurting or express what might be causing her discomfort. She does not appear to be struggling to breathe, there is no accessory muscle use and she is maintaining saturations. Given the patient's pneumonia, alteration in mental status, she is being admitted for treatment with IV antibiotics. Her pneumonia severity index is 109, and her curb65 score is 3. 05/29 Patient remains tearful this morning. Kind of hard to understand. Why do see her she is able to express that she feels cold in the room was cold. Overall better able to communicate than yesterday. Follows instructions when asked her to roll to help examine her lungs. Urinary strep pneumo antigen is positive. Pertinent ROS: Other than complaining of being cold, does not really answer questions. 05/30 Patient seem to answer my simple questions answering yes or no or nodding head. Has no new complaints. I discussed CODE STATUS with her and she nodded no to CPR and intubation but I had a hard time confirming that we would focus on comfort and letting nature take its course and that sort of event. Nursing also reached out to her next of kin, her niece (given that there has been a question of whether the patient is understanding code status), who asked that the patient be DNR. Also, I do feel that in talking with the patient this morning she did appear to understand my code status questions. 05/31 No issues overnight. Follow-up chest x-ray with worsening infiltrates despite diuresis. Still on room air. Difficult to understand her as she does not have her dentures but easier to understand response to simple yes/no questions. 06/01 Nursing had put oxygen on the patient last night. Also per nursing she has not eating or drinking very much. Creatinine elevated today. Will attempt to wean down off oxygen and then follow-up chest x-ray in the morning. IV hydration today and reevaluate renal function tomorrow. She seems to be declining and especially given her underlying COVID diagnosis, concern for prognosis. 06/02 No change. She was on oxygen last night. She is off oxygen this morning but while sitting in bed sounds like her oxygen needs usually is more of an issue when she starts moving around. Chest x-ray showed some increasing bilateral infiltrates today. manager pediatricconsumer lending manager difficult time getting a hold of family sounds like she has a significant other but he does not make decisions for her, she has a niece that is helped us out with coke status. 06/03 Patient quite drowsy today. Not really answering my questions seems to be making some attempt. She is on 1 L of oxygen nasal cannula. Patient not showing any real improvement. Family discussions regarding goals of care and hospice versus comfort care. 06/04-patient POA/family decided on initiation of comfort care interventions. Patient already refusing oral medications. Start aggressive pain and symptom management for end-of-life care. 06/05-patient continues on comfort care. Sats mid 80s on room air. No active concerns per staff. No family at bedside. Gradual deterioration in overall status. Remains minimally responsive 06/06-patient currently on comfort intervention. Minimal responsive. On Ativan/morphine as needed. No family bedside. Sats 86% on room air. Nursing staff informed about patient's niece Sonia would like to initiate tube feeding/hydration and treatment of pneumonia and discontinue comfort care interventions. I called the niece and had an extended conversation on phone wherein she expressed her concerns about patient status quo over the last 48 hours and she expressed her desire to discontinue comfort intervention and initiate full medical intervention during antibiotics/fluids. She also expressed desire to discontinue sedating/opioids to keep patient awake. Subsequently comfort care orders were discontinued, Patient started on Zosyn ,IV fluids at 50 an hour,Dobbhoff tube feeding,Discontinue opioids/sedatives 06/07-patient continues to remain unresponsive. White count 8.2, sodium 146, creatinine 3 BUN 68 secondary to volume depletion. Continue free water replacement/gentle hydration. Patient remains a poor prognosis overall. Further goals of care discussions today 06/08 Tube feeds continue. Patient verbally unresponsive. She will moan to dental sternal rub. 06/09 She is on minimal oxygen. All of her numbers have improved. Renal function has improved. However she does not seem be responding. And still minimally responsive, moaning at times. Need to have further family discussions as she appears to be in severe decline despite correction of acute illness. Had a discussion with Sonia about patient's clinical course which is been continued decline despite correction of her metabolic disturbances. Patient patient weak and sleepy most of the time does not verbalize and does not eat orally. Treatment of pneumonia and improving patient status and patient on minimal oxygen. Renal function improved. He has been getting tube feedings for few days. But continuing to show no improvement. I readdressed hospice course and comfort care with Sonia. She seem to understand the patient's decline/course but could not come to decision at that moment. 06/10 Dobbhoff clogged and replaced last night. Patient moans frequently but when I call her name she will stop and does appear comfortable. I suspect this is more of a delirium issue than pain although cannot rule out some degree of dis comfort. Awaiting further direction from family. 06/11 No change. Patient on room air getting tube feeds, poorly responsive. Need to have a family discussion and ethics committee meeting today. Futility and I am concerned that were just prolonging suffering. *Discussion with Marianela about the patient's clinical status not improving despite correcting metabolic disturbances. After a moment of discussion mother said that she had a chance to think about her last conversation and at this point is ready for us to transition to a comfort care only / hospice direction 06/12 Patient appears comfortable. No overnight event or new complaints. Made comfort care yesterday after another discussion with family. Unable to obtain review of system given nonverbal status. Constitutional Vitals: Vital Signs Temp Pulse Resp BP Pulse Ox 98.5 F 65 16 101/61 94 06/11/20 19:39 06/11/20 19:39 06/11/20 19:39 06/11/20 19:39 06/11/20 19:39 Period Temp Pulse Resp BP Sys/Li Pulse Ox Last 24 Hr 98.5 F 65 16-16 101/61 93-94 Intake and Output 06/11/20 06/12/20 06/12/20 21:59 05:59 13:59 Intake Total 0 Output Total 600 Balance -600 Intake & Output: Intake & Output 06/11/20 06/12/20 06/12/20 21:59 05:59 13:59 Intake Total 0 Output Total 600 Balance -600 Intake: Oral 0 Output: Urine Catheter Amount 600 Other: Urine Appearance Clear Clear Uretheral (Cristobal) Clear Urine Color Light Chapis Dark Yellow Uretheral (Cristobal) Light Chapis Urine Odor Normal Stool Size Small Stool Color Brown Stool Consistency Liquid Exam: General: somnolent, no acute distress Head/Neck: neck supple, CV: RRR, 2-3/6 SM Pulm: diminished b/l, mild b/l rhonchiy, no wheezing Abd: soft, nontender, +BS x4 Ext: no clubbing/cyanosis/edema Neuro: somnolent, partially opens eyes to voice skin: warm/dry OBJ DATA Labs CBC & Chem 7: 06/07/20 05:00 06/11/20 05:00 Labs: Abnormal Lab Results 06/11/20 06/10/20 06/09/20 05:00 05:20 05:15 Chloride 109 H Carbon Dioxide 21 L BUN 37 H 47 H Creatinine 1.5 H 1.7 H Glucose 117 H 125 H Phosphorus 1.5 L 2.6 L AST 43 H Lactate Dehydrogenase 372 H 297 H Albumin 2.2 L 2.0 L 1.9 L Globulin 4.0 H 3.9 H Albumin/Globulin Ratio 0.6 L 0.5 L 0.5 L Meds: Medications Docusate Sodium (Colace) 100 mg PO BID [facility] Last Admin: 06/11/20 20:12 Dose: Not Given Documented by: Glucose Oxid/Lactoperoxid/Muramidas (Biotene) 1 each TOPICAL PRN PRN PRN Reason: Dry Mouth Last Admin: 06/11/20 13:19 Dose: 1 each Documented by: Loperamide HCl (Imodium) 2 mg PO PRN PRN PRN Reason: Diarrhea Lorazepam (Ativan) 0 mg IV Q1HP PRN; Protocol PRN Reason: ANXIETY/SEDATION Last Admin: 06/12/20 05:27 Dose: 1 mg Documented by: Morphine Sulfate (Morphine) 0 mg IV Q1HP PRN PRN Reason: Pain Last Admin: 06/12/20 03:10 Dose: 4 mg Documented by: Morphine Sulfate (Morphine) 4 mg NEB Q4HP PRN PRN Reason: Shortness Of Breath Ondansetron HCl (Zofran) 4 mg IV Q4-6HP PRN PRN Reason: Nausea And Vomiting Ondansetron HCl (Zofran Odt) 4 mg SL Q4HP PRN; Protocol PRN Reason: Nausea And Vomiting Polyethylene Glycol (Miralax) 17 gm PO DAILYP PRN PRN Reason: Constipation Senna (Senna) 8.8 mg PT DAILYP PRN PRN Reason: constipation Sodium Chloride (Saline Flush) 10 ml IV Q8 [facility] Last Admin: 06/12/20 05:28 Dose: 10 ml Documented by: A/P Assessment and plan (1) Pneumonia: Status: Acute Qualifiers: Laterality: left Lung location: upper lobe of lung Pneumonia type: due to unspecified organism Qualified Code(s): J18.9 - Pneumonia, unspecified organism Narrative A/P Narrative: A: *Pneumonia/COVID(+) & Strep Pneumiae (+): *Acute Hypoxic Resp failure: 2/2 above -now on room air *Encephalopathy: Likely 2/2 infectious illness/pneumonia/?underlying cognitive impairment. *MARINA on CKD III: *HTN: *Depression: on SSRI *Diarrhea: c. diff neg *Generalized weakness/Deconditionin/2 combination of above *Goals of care: Guarded prognosis given age and covid + status and generalized decline -less responsive despite correction of metabolic disturbance, not taking orally -discussed with Marianela (06/09) about continued decline despite correction of metabolic disturbances and to reconsider goals of care including hospice/comfort care. P: -comfort care only -Patient and family support -If remains stable gearcase assembler will sort out placement options Time Spent With Patient Time: Total time spent is greater than 50% in coordination of care (as d ocumented) at patient's floor/unit and/or counseling patient: QUALITY VTE Deep Vein Thrombosis/Pulmonary Embolism Present on Admission: No
[2020-06-12] MEDS: DOCUSATE SODIUM 100 MG CAPSULE PO SCH ×2 (09:25→20:27)
[2020-06-12] MEDS: LACTOPEROXI/GLUC OXID/POT THIO 1 EACH GEL..EA. TOPICAL PRN (11:02)
[2020-06-13] MEDS: LORazepam 2 MG/ML VIAL IV PRN ×4 (02:05→22:32)
[2020-06-13] MEDS: 0.9 % SODIUM CHLORIDE 10 ML SYRINGE IV SCH ×3 (06:16→22:16)
[2020-06-13] MEDS: DOCUSATE SODIUM 100 MG CAPSULE PO SCH ×2 (09:25→19:49)
[2020-06-13] MEDS: LACTOPEROXI/GLUC OXID/POT THIO 1 EACH GEL..EA. TOPICAL PRN (12:52)
--- NOTE | 2020-06-13 12:56 | Internal Med Progress Note ---
SUBJECTIVE Subjective Patient information: Note initiated : 06/13/20 at 12:54 pm Service Date, if different from initiated Date: [] Patient: Amna Lawrence a 89 y/o F admitted on 05/28/20 for nausea, vomiting, diarrhea, weakness. Chief Complaint: [] Interval history: Ms. Lawrence is a 89 year old F with a history of chronic kidney disease, hypertension, hypercholesterolemia, osteoporosis who presented to the emergency department yesterday with nausea, vomiting, diarrhea and weakness. She was noted to have weakness, been crying, was not able to get around. She was evaluated, received fluids, symptoms were controlled and attempts were made for her to return home. However there were no contact numbers available for family or friends for the patient to return to her apartment (where she lives with her significant other). She stayed in the emergency department overnight. This morning, she seemed to have decreased interactivity. A caregiver was contacted who states that she is quite vibrant at baseline and generally independent. There was concern that this could represent stroke, she underwent stroke protocol, had CT angios of the head and neck. No evidence of stroke or significant blockages were found. However cuts through the left upper lung field revealed evidence of patchy infiltrates consistent with pneumonia. Full details of emergency department course are contained in Dr. Mensah's note. The patient is unable to provide any history. She is alert, mumbling answers at times which I cannot understand, appears to be a little distraught and crying. Cannot point out to any place where she is hurting or express what might be causing her discomfort. She does not appear to be struggling to breathe, there is no accessory muscle use and she is maintaining saturations. Given the patient's pneumonia, alteration in mental status, she is being admitted for treatment with IV antibiotics. Her pneumonia severity index is 109, and her curb65 score is 3. 05/29 Patient remains tearful this morning. Kind of hard to understand. Why do see her she is able to express that she feels cold in the room was cold. Overall better able to communicate than yesterday. Follows instructions when asked her to roll to help examine her lungs. Urinary strep pneumo antigen is positive. Pertinent ROS: Other than complaining of being cold, does not really answer questions. 05/30 Patient seem to answer my simple questions answering yes or no or nodding head. Has no new complaints. I discussed CODE STATUS with her and she nodded no to CPR and intubation but I had a hard time confirming that we would focus on comfort and letting nature take its course and that sort of event. Nursing also reached out to her next of kin, her niece (given that there has been a question of whether the patient is understanding code status), who asked that the patient be DNR. Also, I do feel that in talking with the patient this morning she did appear to understand my code status questions. 05/31 No issues overnight. Follow-up chest x-ray with worsening infiltrates despite diuresis. Still on room air. Difficult to understand her as she does not have her dentures but easier to understand response to simple yes/no questions. 06/01 Nursing had put oxygen on the patient last night. Also per nursing she has not eating or drinking very much. Creatinine elevated today. Will attempt to wean down off oxygen and then follow-up chest x-ray in the morning. IV hydration today and reevaluate renal function tomorrow. She seems to be declining and especially given her underlying COVID diagnosis, concern for prognosis. 06/02 No change. She was on oxygen last night. She is off oxygen this morning but while sitting in bed sounds like her oxygen needs usually is more of an issue when she starts moving around. Chest x-ray showed some increasing bilateral infiltrates today. international account managermarketing strategy manager difficult time getting a hold of family sounds like she has a significant other but he does not make decisions for her, she has a niece that is helped us out with coke status. 06/03 Patient quite drowsy today. Not really answering my questions seems to be making some attempt. She is on 1 L of oxygen nasal cannula. Patient not showing any real improvement. Family discussions regarding goals of care and hospice versus comfort care. 06/04-patient POA/family decided on initiation of comfort care interventions. Patient already refusing oral medications. Start aggressive pain and symptom management for end-of-life care. 06/05-patient continues on comfort care. Sats mid 80s on room air. No active concerns per staff. No family at bedside. Gradual deterioration in overall status. Remains minimally responsive 06/06-patient currently on comfort intervention. Minimal responsive. On Ativan/morphine as needed. No family bedside. Sats 86% on room air. Nursing staff informed about patient's niece Sonia would like to initiate tube f eeding/hydration and treatment of pneumonia and discontinue comfort care interventions. I called the niece and had an extended conversation on phone wherein she expressed her concerns about patient status quo over the last 48 hours and she expressed her desire to discontinue comfort intervention and initiate full medical intervention during antibiotics/fluids. She also expressed desire to discontinue sedating/opioids to keep patient awake. Subsequently comfort care orders were discontinued, Patient started on Zosyn ,IV fluids at 50 an hour,Dobbhoff tube feeding,Discontinue opioids/sedatives 06/07-patient continues to remain unresponsive. White count 8.2, sodium 146, creatinine 3 BUN 68 secondary to volume depletion. Continue free water replacement/gentle hydration. Patient remains a poor prognosis overall. Further goals of care discussions today 06/08 Tube feeds continue. Patient verbally unresponsive. She will moan to dental sternal rub. 06/09 She is on minimal oxygen. All of her numbers have improved. Renal function has improved. However she does not seem be responding. And still minimally responsive, moaning at times. Need to have further family discussions as she appears to be in severe decline despite correction of acute illness. Had a discussion with Sonia about patient's clinical course which is been continued decline despite correction of her metabolic disturbances. Patient patient weak and sleepy most of the time does not verbalize and does not eat orally. Treatment of pneumonia and improving patient status and patient on minimal oxygen. Renal function improved. He has been getting tube feedings for few days. But continuing to show no improvement. I readdressed hospice course and comfort care with Sonia. She seem to understand the patient's decline/course but could not come to decision at that moment. 06/10 Dobbhoff clogged and replaced last night. Patient moans frequently but when I call her name she will stop and does appear comfortable. I suspect this is more of a delirium issue than pain although cannot rule out some degree of di scomfort. Awaiting further direction from family. 06/11 No change. Patient on room air getting tube feeds, poorly responsive. Need to have a family discussion and ethics committee meeting today. Futility and I am concerned that were just prolonging suffering. *Discussion with Marianela about the patient's clinical status not improving despite correcting metabolic disturbances. After a moment of discussion mother said that she had a chance to think about her last conversation and at this point is ready for us to transition to a comfort care only / hospice direction 06/12 Patient appears comfortable. No overnight event or new complaints. Made comfort care yesterday after another discussion with family. Unable to obtain review of system given nonverbal status. 06/13-patient remains on comfort care interventions. No overnight events. No family member at bedside. No concerns expressed by nursing staff. Constitutional Vitals: Vital Signs Temp Pulse Resp BP Pulse Ox 98.6 F 72 16 150/78 93 06/13/20 07:37 06/13/20 08:00 06/13/20 08:00 06/13/20 07:37 06/13/20 08:00 Period Temp Pulse Resp BP Sys/Li Pulse Ox Last 24 Hr 97.5 F-98.6 F 72-75 12-16 150-150/63-78 93-94 Intake and Output 06/12/20 06/13/20 06/13/20 21:59 05:59 13:59 Intake Total 0 Output Total 275 325 Balance -275 -325 Physical exam deferred to maintain comfort Intake & Output: Intake & Output 06/12/20 06/13/20 06/13/20 21:59 05:59 13:59 Intake Total 0 Output Total 275 325 Balance -275 -325 Intake: Oral 0 Output: Urine Catheter Amount 275 325 Other: Urine Appearance Clear Clear Clear Uretheral (Cristobal) Clear Urine Color Dark Yellow Light Chapis Light Chapis Uretheral (Cristobal) Dark Yellow Urine Odor Normal Normal OBJ DATA Labs CBC & Chem 7: 06/07/20 05:00 06/11/20 05:00 Labs: Abnormal Lab Results 06/11/20 05:00 Carbon Dioxide 21 L BUN 37 H Glucose 117 H AST 43 H Lactate Dehydrogenase 372 H Albumin 2.2 L Globulin 4.0 H Albumin/Globulin Ratio 0.6 L Meds: Medications Docusate Sodium (Colace) 100 mg PO BID [facility] Last Admin: 06/13/20 09:25 Dose: Not Given Documented by: Glucose Oxid/Lactoperoxid/Muramidas (Biotene) 1 each TOPICAL PRN PRN PRN Reason: Dry Mouth Last Admin: 06/13/20 12:52 Dose: 1 each Documented by: Loperamide HCl (Imodium) 2 mg PO PRN PRN PRN Reason: Diarrhea Lorazepam (Ativan) 0 mg IV Q1HP PRN; Protocol PRN Reason: ANXIETY/SEDATION Last Admin: 06/13/20 09:25 Dose: 2 mg Documented by: Morphine Sulfate (Morphine) 0 mg IV Q1HP PRN PRN Reason: Pain Last Admin: 06/13/20 12:51 Dose: 4 mg Documented by: Morphine Sulfate (Morphine) 4 mg NEB Q4HP PRN PRN Reason: Shortness Of Breath Ondansetron HCl (Zofran) 4 mg IV Q4-6HP PRN PRN Reason: Nausea And Vomiting Ondansetron HCl (Zofran Odt) 4 mg SL Q4HP PRN; Protocol PRN Reason: Nausea And Vomiting Polyethylene Glycol (Miralax) 17 gm PO DAILYP PRN PRN Reason: Constipation Senna (Senna) 8.8 mg PT DAILYP PRN PRN Reason: constipation Sodium Chloride (Saline Flush) 10 ml IV Q8 [facility] Last Admin: 06/13/20 06:16 Dose: 10 ml Documented by: A/P Assessment and plan (1) Pneumonia: Status: Acute Qualifiers: Laterality: left Lung location: upper lobe of lung Pneumonia type: due to unspecified organism Qualified Code(s): J18.9 - Pneumonia, unspecified organism Narrative A/P Narrative: A: *Pneumonia/COVID(+) & Strep Pneumiae (+): *Acute Hypoxic Resp failure: 2/2 above-resolved now on room air *Encephalopathy: Likely 2/2 infectious illness/pneumonia/?underlying cognitive impairment. *MARINA on CKD III: *HTN: *Depression: on SSRI *Diarrhea: c. diff neg *Generalized weakness/Deconditionin/2 combination of above *Goals of care: Guarded prognosis given age and covid + status and generalized decline -less responsive despite correction of metabolic disturbance, not taking orally -discussed with Marianela (06/09) about continued decline despite correction of metabolic disturbances and to reconsider goals of care including hospice/comfort care. P: -Continue comfort care -Patient and family support -May require placement for continued end-of-life care Time Spent With Patient Time: Total time spent is greater than 50% in coordination of care (as documented) at patient's floor/unit and/or counseling patient: QUALITY VTE Deep Vein Thrombosis/Pulmonary Embolism Present on Admission: No
[2020-06-14] MEDS: 0.9 % SODIUM CHLORIDE 10 ML SYRINGE IV SCH (05:48)
--- NOTE | 2020-06-14 09:24 | Discharge Summary ---
Discharge Provider Provider Patient information: Note initiated : 06/14/20 at 9:21 am Service Date, if different from initiated Date: [] Patient: Amna Lawrence a 89 y/o F admitted on 05/28/20 for nausea, vomiting, diarrhea, weakness. Chief Complaint: [] Discharge diagnosis *End-of-life care *Pneumonia/COVID 19 (+) *Acute Hypoxic Resp failure: 2/2 above *Encephalopathy: Likely 2/2 infectious illness/pneumonia/?underlying cognitive impairment. *MARINA on CKD III: *HTN: *Depression: Continue SSRI/benzodiazepine *Diarrhea: c. diff neg *Generalized weakness/Deconditionin/2 combination of above *Goals of care: Guarded prognosis given age and covid + status and generalized decline -less responsive despite correction of metabolic disturbance, not taking orally -discussed with Marianela (06/09) about continued decline despite correction of metabolic disturbances and to reconsider goals of care including hospice/comfort care. Transitioning to home hospice today Brief hospital course Ms. Lawrence is a 89 year old F with a history of chronic kidney disease, hypertension, hypercholesterolemia, osteoporosis who presented to the emergency department yesterday with nausea, vomiting, diarrhea and weakness. She was noted to have weakness, been crying, was not able to get around. She was evaluated, received fluids, symptoms were controlled and attempts were made for her to return home. However there were no contact numbers available for family or friends for the patient to return to her apartment (where she lives with her significant other). She stayed in the emergency department overnight. This morning, she seemed to have decreased interactivity. A caregiver was contacted who states that she is quite vibrant at baseline and generally independent. There was concern that this could represent stroke, she underwent stroke protocol, had CT angios of the head and neck. No evidence of stroke or significant blockages were found. However cuts through the left upper lung field revealed evidence of patchy infiltrates consistent with pneumonia. Full details of emergency department course are contained in Dr. Mensah's note. The patient is unable to provide any history. She is alert, mumbling answers at times which I cannot understand, appears to be a little distraught and crying. Cannot point out to any place where she is hurting or express what might be causing her discomfort. She does not appear to be struggling to breathe, there is no accessory muscle use and she is maintaining saturations. Given the patient's pneumonia, alteration in mental status, she is being admitted for treatment with IV antibiotics. Her pneumonia severity index is 109, and her curb65 score is 3. 05/29 Patient remains tearful this morning. Kind of hard to understand. Why do see her she is able to express that she feels cold in the room was cold. Overall better able to communicate than yesterday. Follows instructions when asked her to roll to help examine her lungs. Urinary strep pneumo antigen is positive. Pertinent ROS: Other than complaining of being cold, does not really answer questions. 05/30 Patient seem to answer my simple questions answering yes or no or nodding head. Has no new complaints. I discussed CODE STATUS with her and she nodded no to CPR and intubation but I had a hard time confirming that we would focus on comfort and letting nature take its course and that sort of event. Nursing also reached out to her next of kin, her niece (given that there has been a question of whether the patient is understanding code status), who asked that the patient be DNR. Also, I do feel that in talking with the patient this morning she did appear to understand my code status questions. 05/31 No issues overnight. Follow-up chest x-ray with worsening infiltrates despite diuresis. Still on room air. Difficult to understand her as she does not have her dentures but easier to understand response to simple yes/no questions. 06/01 Nursing had put oxygen on the patient last night. Also per nursing she has not eating or drinking very much. Creatinine elevated today. Will attempt to wean down off oxygen and then follow-up chest x-ray in the morning. IV hydration today and reevaluate renal function tomorrow. She seems to be declining and especially given her underlying COVID diagnosis, concern for prognosis. 06/02 No change. She was on oxygen last night. She is off oxygen this morning but while sitting in bed sounds like her oxygen needs usually is more of an issue when she starts moving around. Chest x-ray showed some increasing bilateral infiltrates today. 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 06/03 Patient quite drowsy today. Not really answering my questions seems to be making some attempt. She is on 1 L of oxygen nasal cannula. Patient not showing any real improvement. Family discussions regarding goals of care and hospice versus comfort care. 06/04-patient POA/family decided on initiation of comfort care interventions. Patient already refusing oral medications. Start aggressive pain and symptom management for end-of-life care. 06/05-patient continues on comfort care. Sats mid 80s on room air. No active concerns per staff. No family at bedside. Gradual deterioration in overall status. Remains minimally responsive 06/06-patient currently on comfort intervention. Minimal responsive. On Ativan/morphine as needed. No family bedside. Sats 86% on room air. Nursing staff informed about patient's niece Sonia would like to initiate tube feeding/hydration and treatment of pneumonia and discontinue comfort care interventions. I called the niece and had an extended conversation on phone wherein she expressed her concerns about patient status quo over the last 48 hours and she expressed her desire to discontinue comfort intervention and initiate full medical intervention during antibiotics/fluids. She also expressed desire to discontinue sedating/opioids to keep patient awake. Subsequently comfort care orders were discontinued, Patient started on Zosyn ,IV fluids at 50 an hour,Dobbhoff tube feeding,Discontinue opioids/sedatives 06/07-patient continues to remain unresponsive. White count 8.2, sodium 146, creatinine 3 BUN 68 secondary to volume depletion. Continue free water replacement/gentle hydration. Patient remains a poor prognosis overall. Further goals of care discussions today 06/08 Tube feeds continue. Patient verbally unresponsive. She will moan to dental sternal rub. 06/09 She is on minimal oxygen. All of her numbers have improved. Renal function has improved. However she does not seem be responding. And still minimally responsive, moaning at times. Need to have further family discussions as she appears to be in severe decline despite correction of acute illness. Had a discussion with Sonia about patient's clinical course which is been continued decline despite correction of her metabolic disturbances. Patient patient weak and sleepy most of the time does not verbalize and does not eat orally. Treatment of pneumonia and improving patient status and patient on minimal oxygen. Renal function improved. He has been getting tube feedings for few days. But continuing to show no improvement. I readdressed hospice course and comfort care with Sonia. She seem to understand the patient's decline/course but could not come to decision at that moment. 06/10 Dobbhoff clogged and replaced last night. Patient moans frequently but when I call her name she will stop and does appear comfortable. I suspect this is more of a delirium issue than pain although cannot rule out some degree of discomfort. Awaiting further direction from family. 06/11 No change. Patient on room air getting tube feeds, poorly responsive. Need to have a family discussion and ethics committee meeting today. Futility and I am concerned that were just prolonging suffering. *Discussion with Marianela about the patient's clinical status not improving despite correcting metabolic disturbances. After a moment of discussion mother said that she had a chance to think about her last conversation and at this point is ready for us to transition to a comfort care only / hospice direction 06/12 Patient appears comfortable. No overnight event or new complaints. Made comfort care yesterday after another discussion with family. Unable to obtain review of system given nonverbal status. 06/13-patient remains on comfort care interventions. No overnight events. No family member at bedside. No concerns expressed by nursing staff. 06/14-patient discharging with home hospice for end-of-life continued care. Detailed instructions/prescriptions as below. Date of admission: 05/28/20 19:52 Primary care physician: Kaley Jimenez Consults: 05/28/20 Consult to Physician [CONS] Stat Comment: Consulting Provider: Iveth Land Reason For Exam: Physician to Consult Discharge Meds Discharge Medications Home Medications lorazepam [Lorazepam Intensol] 2 mg PO Q4H PRN #30 ml 06/14/20 [Rx Last Taken Unknown] morphine concentrate 10 mg PO Q2H PRN #20 ml 06/14/20 [Rx Last Taken Unknown] ondansetron 4 mg PO Q4-6HP PRN #10 tab 06/14/20 [Rx Last Taken Unknown] scopolamine base [Transderm-Scop] 1 ea TOPICAL Q72 #7 patch.td72 06/14/20 [Rx Last Taken Unknown] COURSE Time Spent with Patient Time attestation: Total time spent providing and/or coordinating discharge services: EXAM Constitutional Vitals: Temp Pulse Resp BP Pulse Ox 97.6 F 93 H 16 118/69 93 06/13/20 19:45 06/14/20 08:00 06/14/20 08:00 06/13/20 19:45 06/14/20 08:00 Discharge Plan Patient/Caregiver Discharge Instructions Activity: increase activity as tolerated Diet: Regular Diet Instructions: Hospice Care (GEN) Activity Restrictions/Additional Instructions: Continue home hospice aggressive pain and symptom management This discharge packet is provided to you to help keep you informed about your care. We want to ensure you get everything you need when you go home. You will also be receiving a call from us in a few days to follow up with you and see how you are doing since your discharge. This gives us a chance to listen to any concerns you maybe experiencing since you were discharged or any additional needs you may have, as well as providing us feedback on your care experience. We strive to always provide excellent care and thank you for your feedback and for choosing [facility]. Prescriptions: New morphine concentrate 100 mg/5 mL (20 mg/mL) Solution 10 mg PO Q2H PRN (Reason: Pain) Qty: 20 RF: 0 scopolamine base [Transderm-Scop] 1 PATCH patch 1 ea topical Q72 Qty: 7 RF: 0 ondansetron 4 mg Tablet,Disintegrating 4 mg PO Q4-6HP PRN (Reason: Nausea/Vomiting) Qty: 10 RF: 0 lorazepam [Lorazepam Intensol] 2 MG/ML concentrate 2 mg PO Q4H PRN (Reason: Anxiety) Qty: 30 RF: 0 Discontinued chlorthalidone 25 mg tablet 25 mg PO QDAY Qty: 60 RF: 2 losartan 100 mg tablet 100 mg PO QDAY RF: 0 metoprolol succinate 25 mg tablet extended release 24 hr 25 mg PO QDAY RF: 0 cyanocobalamin (vit B-12) 1,000 mcg tablet 1,000 mcg tablet 1,000 mcg PO QDAY RF: 0 gabapentin 100 MG capsule 100 mg PO BID RF: 0 paroxetine HCl 10 mg tablet 10 mg PO DAILY RF: 0 hydrocodone-acetaminophen 5-325 mg Tablet 1 - 2 tab PO Q4H PRN (Reason: Pain) RF: 0 lidocaine [Lidoderm] 5 % Adhesive Patch,Medicated 1 patch transdermal DAILY RF: 0 furosemide 20 mg Tablet 20 mg PO QAM RF: 0 ergocalciferol (vitamin D2) 1,250 mcg (50,000 unit) Capsule 2,500 mcg PO WEEKLY RF: 0 losartan 100 mg Tablet 100 mg PO QDAY RF: 0 hydroxyzine pamoate 25 mg Capsule 25 mg PO QHS RF: 0 Follow Up Plan Follow up with: Telma Smith ARNP [Referring] - (See your PCP as needed) Patient Disposition: Hospice - Home Rehab Potential: Critical I certify that the patient requires SNF services: No Overall status at discharge: patient is not back to baseline Discharge Orders: Discharge Order (Routine); Ordered 06/14/20 Ordered By: Ramana ARCHULETA VTE Deep Vein Thrombosis/Pulmonary Embolism Present on Admission: No
[2020-06-14] MEDS: DOCUSATE SODIUM 100 MG CAPSULE PO SCH (11:59)
[2020-06-14] MEDS: LORazepam 2 MG/ML VIAL IV PRN (12:26)
== END 2020-06-14 13:05 | disposition hospice, home (50) | DRG 177 ==
LOC: SUPCPDRO → ED 17:07 → ICU 05-28 19:32
PROVIDERS: ADMIT Internal Medicine; ATTEND Internal Medicine